=== PATIENT | male | born 1950 | race Two or more races ===

== ENCOUNTER 2018-02-23 11:00 | Inpatient (IN) | payer MEDICARE ==
[2018-02-23 11:33] VITALS: BP 138/89
[2018-02-23] MEDS ORDERED: Magnesium Hydroxide (MOM) 30 mL UDC PO PRN (12:09)
[2018-02-23] MEDS ORDERED: Maalox 30 mL Cup PO PRN (12:09)
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
[2018-02-23] MEDS ORDERED: Haloperidol Lactate 5 mg/mL 1mL Vial IM ONE (14:55)
[2018-02-23] MEDS ORDERED: Haloperidol Lactate 5 mg/mL 1mL Vial ONE (14:55)
[2018-02-24] MEDS: Multivitamin Tab PO SCH (08:36)
--- NOTE | 2018-02-24 13:09 | History & Physical ---
ADMIT DATE: 02/24/2018 PATIENT IDENTIFICATION: A 67-year-old male. CHIEF COMPLAINT: "Do you have your ID, I do mine." HISTORY OF PRESENT ILLNESS: A 67-year-old -[place], retired admitted by Dr. Sutton with legal status of 5150 after the patient was noted to have aggressive behavior towards his family. PAST MEDICAL HISTORY: Remarkable for: 1. Hypertension. 2. Hyperlipidemia. 3. Degenerative joint disease. 4. Posttraumatic stress disorder. MEDICATIONS AT HOME: Taking cholesterol medicine, which he does not remember; blood pressure medicine, does not remember. Depakote along with multivitamins. ALLERGIES: THE PATIENT IS NOT ALLERGIC TO MEDICATIONS. SOCIAL HISTORY: He is a retired , lives with family. He has a history of smoking cigarette, drinking alcohol use. Denies any street drug use. FAMILY MEDICAL HISTORY: Remarkable for hypertension. REVIEW OF SYSTEMS: The patient denies any chest pain, shortness of breath, palpitation, dizziness, nausea, vomiting, headache, seizure, syncopal episode, weight loss, weight gain, tingling, numbness involving upper and lower extremity, but admits to bilateral lower extremity swelling, more on the right than left due to excessive walking as per the patient account. PHYSICAL EXAMINATION: GENERAL: The patient is alert, awake, unpredictable behavior, sitting in the chair provided history by himself. VITAL SIGNS: Temperature 97.8, pulse is 82, respiratory rate is 20, blood pressure 111/74. HEENT: Normocephalic, atraumatic. Extraocular muscles are intact. Tongue was pink and coated. Poor dentition noted. No oral lesion, no bleeding. No sinus tenderness. NECK: Supple, no JVD, no hepatojugular reflex. No lymphadenopathy or carotid bruit. HEART: Both heart sounds are regular. No S3, no S4. CHEST: Lung equal in expansion, no expiratory wheezing. ABDOMEN: Protuberant, soft. No guarding, rigidity. Bowel sounds present. No palpable mass. EXTREMITIES: Remarkable for bilateral lower extremity edema, start from both feet all the way to both the knee, more on the left than right. Increased tenderness and increased warmth was noted. I was unable to see open wound on the bottom of the feet noted. Bilateral calves tenderness also noted. NEUROLOGIC: Alert, awake, follows commands. 2-12 cranial nerves are intact. Power in upper or lower extremities, 5+. Sensation to touch intact. ____ to touch are intact in both lower extremities, unable to broad-based gait noted. Otherwise, nonfocal. BACK: No kyphosis, scoliosis. No posterior tenderness. RECTAL: Not done as per patient's account. EXTERNAL GENITAL: Not done as per patient's request. AVAILABLE DIAGNOSTIC DATA: Performed in outside the facility has been reviewed, which is remarkable for leukopenia and normocytic normochromic anemia along with elevated BUN and creatinine. CLINICAL IMPRESSION: 1. Leukopenia, etiology needs to determination. The patient is a [place] , needs to rule out for chronic hepatitis B or C. 2. Normocytic normochromic anemia, suspect probably anemia of inflammation. 3. Elevated BUN and creatinine. No previous BUN and creatinine is available. The patient does have a history of hypertension, longstanding suspect patient has most likely chronic kidney disease stage 3. 4. Obesity. 5. Bilateral lower extremity cellulitis, needs to rule out for deep venous thrombosis. 6. Degenerative joint disease. 7. Obesity. 8. Psychotic disorder. PLAN: In the view of his medical problem, proceed with hepatitis panel to check to rule out hepatitis B and C, vitamin B12, Folate, TSH, CASSIE, ESR, RA will also be checked for evaluation of leukopenia. The patient will have serum iron, TIBC, retic count and ferritin level to be checked as well for assessment of anemia. The patient does have chronic kidney disease. I will not do anything at this time and will do the followup BMP. The patient can do outpatient workup for his chronic kidney disease. Psychotic evaluation and management has been deferred to psychiatrist. The patient will be placed empirically clindamycin along with probiotic for cellulitis, bilateral lower extremity venous Doppler studies will be done as well. The patient will be followed by us during the stay in the hospital. I sincerely thank you, Dr. Sutton for giving me the opportunity to participate in patient of yours. JOB# [id number]
[2018-02-24] MEDS: Lactobacillus Rhamnosus GG 15 Billion CFU CAP.SPRINK PO SCH (14:48)
[2018-02-24 18:06] LABS: CHOLESTEROL 146 mg/dL (<200); HDL -HIGH DENSITY LIPOPROTEIN 37 mg/dL (23-92); TRIGLYCERIDES 85 mg/dL (<150)
--- NOTE | 2018-02-24 19:48 | Progress Notes ---
DATE: Dr. Smart is covering for Dr. Sutton. The chart reviewed and the patient interviewed. Also discussed the patient's condition with the staff and reviewed records and labs. The patient remains in irritable mood. The patient also is impulsive and unpredictable. The patient is preoccupied with his right foot. Right foot has infection. He also is still upset for nobody cares and that nobody check them. At the same time, Dr. Herring informed and he will check the patient when he arrived to the hospital. The patient is demanding and talking about him being and is easily agitated and is still having severe mood swings. Otherwise, the patient started on Zyprexa 10 mg at bedtime and also continued to take Depakote 500 mg twice a day with no side effects. ASSESSMENT: The patient is still agitated and psychotic. TREATMENT PLAN: Continue to monitor his behavior and his condition closely. Also, work on the cellulitis on his right foot and Dr. Herring will evaluate the patient. Also, continue adjusting psychotropic medications and follow up. JOB# [id number]
--- NOTE | 2018-02-25 09:31 | Diagnostic Imaging Report ---
Bilateral lower extremity DVT study HISTORY: Pain COMPARISON: None Technique: Longitudinal and transverse sonographic images of the bilateral lower extremity veins were obtained with doppler analysis. FINDINGS: There is normal compressibility, augmentation and phasicity of the bilateral common femoral, superficial femoral, popliteal, and posterior tibial veins. No thrombus is visualized. Lower extremity subcutaneous edema is noted. IMPRESSION: No evidence of thrombus within the bilateral lower extremity veins. Lower extremity subcutaneous edema.
[2018-02-25] MEDS: Multivitamin Tab PO SCH (10:01)
[2018-02-25] MEDS: Lactobacillus Rhamnosus GG 15 Billion CFU CAP.SPRINK PO SCH (10:01)
[2018-02-25 14:12] LABS: HEP A AB IGM Negative (Negative); HEP B CORE IGM Negative (Negative); HEP B SURFACE AG QL Negative (Negative); HEP C ANTIBODY <0.1 s/co ratio (0.0-0.9)
--- NOTE | 2018-02-25 19:41 | Progress Notes ---
DATE: 02/25/2018 IDENTIFICATION: A 67-year-old male. SUBJECTIVE: The patient seen and examined. The patient lying in the bed. The patient has no new complaint. Bilateral lower extremity venous Doppler studies were done, which were negative for deep venous thrombosis. The patient's ESR is reported 72. Cholesterols are normal. Hepatitis panels are negative. TSH of 0.83. The patient has open wound on his leg. Currently, the patient is placed on p.o. antibiotic. MRSA came out positive as well. OBJECTIVE: On today's exam, VITAL SIGNS: Temperature 97.8, pulse is 83, respiratory rate is 18, blood pressure 136/76. HEENT: Poor dentition. NECK: Supple, no JVD. HEART: Regular. CHEST: Lung equal in expansion, no expiratory wheezing. ABDOMEN: Soft. No guarding or rigidity. EXTREMITIES: Bilateral lower extremity edema with increased warmth noted with open wound. CLINICAL IMPRESSION: 1. Bilateral lower extremity cellulitis. 2. Elevated ESR secondary to cellulitis. 3. Normocytic normochromic anemia, probably from anemia of inflammation. 4. Chronic kidney disease. 5. Obesity. 6. Degenerative joint disease. 7. Psychiatric disorder. 8. History of hypertension. PLAN: Await workup for anemia as well as chronic kidney disease. At this time, continue to provide p.o. antibiotic, psychiatric medication, and follow up as per psychiatrist. Fall precautions as ordered. Bactroban for MRSA colonization. Care plan reviewed and discussed. JOB# [id number]
[2018-02-26] MEDS: Lactobacillus Rhamnosus GG 15 Billion CFU CAP.SPRINK PO SCH (09:08)
[2018-02-26] MEDS: Multivitamin Tab PO SCH (09:08)
[2018-02-26] MEDS ORDERED: Haloperidol Lactate 5 mg/mL 1mL Vial IM ONE (17:36)
[2018-02-26] MEDS ORDERED: Haloperidol Lactate 5 mg/mL 1mL Vial ONE (17:46)
--- NOTE | 2018-02-26 22:18 | Progress Notes ---
DATE: MEDICAL PROGRESS NOTE PATIENT'S IDENTIFICATION: A 67-year-old male. SUBJECTIVE: The patient seen and examined. The patient is sitting, walking in the hallway. The patient denies any chest pain, shortness of breath, palpitation, dizziness, nausea, vomiting. The patient is currently on antibiotics for his cellulitis. OBJECTIVE: VITAL SIGNS: Temperature 98.2, pulse 86, respiratory rate is 20, blood pressure 113/80. HEENT: Poor dentition. NECK: Supple, no JVD. HEART: Regular. CHEST AND LUNG: Equal in expansion, no wheezing, no crackles. ABDOMEN: Soft. No guarding, no rigidity. Bowel sounds present. No palpable mass. EXTREMITIES: Remarkable bilateral lower extremity edema noted. CLINICAL IMPRESSION: 1. Bilateral lower extremity cellulitis. 2. Hypertension by history. 3. Hyperlipidemia. 4. Chronic kidney disease. 5. Obesity. 6. Psychotic disorder. 7. Degenerative joint disease. 8. Anemia of inflammation. PLAN: 1. Antibiotic. 2. Monitor blood pressure. 3. Monitor behavior. 4. General nursing care. 5. Follow lab. 6. I will continue to follow this patient during the stay in the hospital. JOB# [id number]
--- NOTE | 2018-02-27 01:03 | Progress Notes ---
DATE: 02/25/2018 SUBJECTIVE: Chart reviewed and the patient interviewed. Also discussed the patient's condition with the staff and reviewed records and labs. The patient is still angry and he is still agitated and in irritable mood. The patient also is demanding and asking staff to do certain things that needs to be done immediately. He also is still argumentative and he is hyperverbal and abusive to staff. The patient also is still complaining about his right foot, but at the same time started on antibiotics. Also during the interview, the patient is angry and easily agitated. ASSESSMENT: The patient is still psychotic and agitated. TREATMENT PLAN: The patient took Depakote only once, but he did take Zyprexa last night. We will continue monitoring his behavior and his condition closely and also we will continue to work on his compliance with medications. Also, continue to work on his anger and manic behavior and psychosis especially that his thinking is that he has millions of dollars and the people are after his money. JOB# [id number]
--- NOTE | 2018-02-27 02:06 | Progress Notes ---
DATE: 02/26/2018 SUBJECTIVE: Case was discussed with staff of the patient and reviewed records. The patient is continues to unpredictable, impulsive, overwhelmed, hyperverbal and very unpredictable. He continues to have poor insight, continues to need redirections. He is sleeping better and eating better. His olanzapine will be increased to 10 mg twice a day. He is compliant with the medication with no side effects, no sedation, no nausea, no extrapyramidal symptoms. He felt very intrusive and had to have emergency medication. LABORATORY DATA: His Depakote level is 52.8 which is within acceptable range. His serology was negative and ESR high at 72. Blood sugar is within normal range. TSH is within normal range. Lipid profile is within normal range. ASSESSMENT AND PLAN: We will continue the patient in group therapy, milieu therapy, and adjust medications as needed. JOB# [id number]
[2018-02-27 08:09] LABS: FERRITIN 302 ng/mL (30-400); IRON LC 33 ug/dL (38-169); TIBC (LC) 223 ug/dL (250-450); UIBC 190 ug/dL (111-343)
[2018-02-27] MEDS: Multivitamin Tab PO SCH (09:01)
[2018-02-27] MEDS: Lactobacillus Rhamnosus GG 15 Billion CFU CAP.SPRINK PO SCH (09:01)
--- NOTE | 2018-02-27 23:14 | Progress Notes ---
DATE: PATIENT'S IDENTIFICATION: A 67-year-old male. SUBJECTIVE: The patient is seen and examined. The patient is lying in the bed. The patient denies any chest pain, shortness of breath, palpitation, dizziness, nausea, vomiting, diarrhea. OBJECTIVE: On exam, VITAL SIGNS: See nurse's note. HEENT: No facial asymmetry. Tongue was pink and coated. NECK: Supple. No JVD. HEART: Regular. CHEST AND LUNG: Equal in expansion, no expiratory wheezing. ABDOMEN: Soft. No guarding, no rigidity. Bowel sounds are present. EXTREMITIES: Bilateral leg edema noted, which is decreased as compared to day of admission. No calf tenderness noted. CLINICAL IMPRESSION: 1. Bilateral lower extremity cellulitis, currently on p.o. medication. 2. Psychiatric disorder. 3. Obesity. 4. Anemia of chronic inflammation. 5. Degenerative joint disease. 6. Chronic kidney disease stage 3. PLAN: Continue p.o. antibiotic for now. Continue to monitor blood pressure and behavior, psychiatric medication and management deferred to psychiatrist. The patient fall precautions as well as symptoms management and medication management. Care plan reviewed and discussed. JOB# [id number]
--- NOTE | 2018-02-28 00:21 | Progress Notes ---
DATE: 02/27/2018 SUBJECTIVE: Case was discussed with the staff of the patient and reviewed records. The patient continues to be manicky and hyperverbal. He had a probable cause hearing today. It was upheld. The patient continues to be very agitated. Continues to need redirection. Continues to need emergency medication. He has been compliant with the medication with no side effects, no sedation, no nausea, no extrapyramidal symptoms. PLAN: I will be increasing his Zyprexa dose to 50 mg twice a day. His Depakote level is 53.8, which was within acceptable therapeutic range. He has high ESR ____, low iron, low total iron binding capacity. The patient's serology screen was negative. No side effects with the medication, no sedation, no nausea, no extrapyramidal symptoms. We will continue the patient in group therapy, milieu therapy, adjust medication as needed. JOB# [id number]
[2018-02-28] MEDS: Multivitamin Tab PO SCH (08:29)
[2018-02-28] MEDS: Lactobacillus Rhamnosus GG 15 Billion CFU CAP.SPRINK PO SCH (08:29)
--- NOTE | 2018-02-28 09:38 | Progress Notes ---
DATE: 02/28/2018 Case was discussed with staff of the patient, reviewed records. The patient continues to be irrational. Continues to be loud. Continues to be unpredictable and impulsive, needing redirection. Continues to have poor insight. They tried to make him wear socks and slippers; however, he refuses and his feet are swollen. I asked Casandra, the charge nurse to make sure he get something to wear and she said he keep refusing and taking it off; very poor insight, unpredictable and impulsive. I will be consulting with the medical doctor regarding abnormal lab work as his Staph aureus MRSA isolated and he has a high sed rate. There was a Doppler study of the lower extremities for DVT and showed no evidence ____ within the bilateral lower extremity vein and that was done because of edema; however, I will be talking to Casandra to make sure he gets treated for his MRSA isolated bacteria that was detected. He is already on clindamycin 300 mg every 8 hours and his Depakote level is ____ which is within acceptable therapeutic range. No side effects, no sedation, no nausea, no extrapyramidal symptoms and Zyprexa was increased to 50 mg b.i.d. and we will continue the patient in group therapy, milieu therapy, adjust the medication as needed. JOB# [id number]
[2018-02-28] MEDS ORDERED: Haloperidol Lactate 5 mg/mL 1mL Vial IM ONE (12:26)
[2018-02-28] MEDS ORDERED: Haloperidol Lactate 5 mg/mL 1mL Vial ONE (12:28)
[2018-03-01] MEDS: Lactobacillus Rhamnosus GG 15 Billion CFU CAP.SPRINK PO SCH (10:00)
[2018-03-01] MEDS: Multivitamin Tab PO SCH (10:00)
--- NOTE | 2018-03-01 21:43 | Progress Notes ---
DATE: 03/01/2018 Case was discussed with staff of the patient, reviewed records. The patient looks disheveled, disorganized, internally preoccupied. When I approached to talk to him, he said get away from me. He was very aggressive, irritable. He was very hard to redirect, unpredictable and impulsive. I did increase Zyprexa dose yesterday to 50 mg twice a day. I will give her more chance before adjusting the dose and so far no side effects with the medication, no sedation, no nausea, no extrapyramidal symptoms. We will continue to work with the patient in group therapy, milieu therapy, and adjust medication as needed. JOB# [id number]
[2018-03-02] MEDS: Lactobacillus Rhamnosus GG 15 Billion CFU CAP.SPRINK PO SCH (09:25)
[2018-03-02] MEDS: Multivitamin Tab PO SCH (09:25)
--- NOTE | 2018-03-02 23:56 | Progress Notes ---
DATE: 03/02/2018 SUBJECTIVE: Case was discussed with staff of the patient and reviewed records. The patient seems to be very irritable, manic. He continues to be aggressive. Continues to have poor insight. Continues to be unable to make safe plan for self-care. He is easily agitated. He was naked, when I went to talk to him, not responding well to redirection. He is unpredictable and impulsive. He has no known drug allergy. PLAN: I will be adding Haldol to his medication with the intention ____ acting. He did take the Haldol before and no side effects. We will continue the patient in group therapy, milieu therapy, and adjust medications as needed. JOB# [id number]
[2018-03-03] MEDS: Lactobacillus Rhamnosus GG 15 Billion CFU CAP.SPRINK PO SCH (08:26)
[2018-03-03] MEDS: Multivitamin Tab PO SCH (08:28)
--- NOTE | 2018-03-03 18:16 | Progress Notes ---
DATE: 03/03/2018 Case was discussed with staff of the patient and reviewed records. The patient continues to be unpredictable, impulsive, loud, needing redirection. Continues to have poor insight. Continues to be unable to make safe plan for self-care. Continues to be easily agitated, delusional and I added Haldol yesterday to his medication. Today, he is a little bit calmer; however, still not sure how it is hard to make judgment that this is working for him, because of his extreme agitation. No side effects with the medication, no sedation noted. No extrapyramidal symptoms. We will continue the patient in group therapy, milieu therapy and adjust medications as needed. JOB# [id number]
[2018-03-04] MEDS: Multivitamin Tab PO SCH (08:32)
[2018-03-04] MEDS: Lactobacillus Rhamnosus GG 15 Billion CFU CAP.SPRINK PO SCH (08:32)
--- NOTE | 2018-03-04 19:56 | Progress Notes ---
DATE: 03/04/2018 Case was discussed with staff of the patient, reviewed records. The patient is starting to show some progress since adding the Haldol. He is sleeping better, eating better. He is compliant with the medication with no side effects. However, he is still delusional. Apparently, the staff told me that they found a lot of marijuana on his clothes and he came with a bag of marijuana. Apparently, he was still using marijuana since he was admitted and they found out about this in the last 2 days. Now, he is less agitated, easier to redirect. He is compliant with the medication with no side effects, no sedation, no nausea, no extrapyramidal symptoms. We will continue outpatient group therapy, milieu therapy, and adjust medications as needed. JOB# [id number]
[2018-03-05] MEDS: Lactobacillus Rhamnosus GG 15 Billion CFU CAP.SPRINK PO SCH (09:07)
[2018-03-05] MEDS: Multivitamin Tab PO SCH (09:08)
[2018-03-05] MEDS: Potassium Chloride 10 mEq ER Tab PO SCH (09:19)
--- NOTE | 2018-03-05 21:07 | Progress Notes ---
DATE: 03/05/2018 MEDICAL PROGRESS NOTE PATIENT'S IDENTIFICATION: A 67-year-old male patient. SUBJECTIVE: The patient seen and examined. The patient is sitting in the chair, more cooperative and calm. The patient's legs have continues to remain swollen. He did finish the antibiotic with no improvement. The patient has normal liver function as well as renal function as well. OBJECTIVE: On today's exam, VITAL SIGNS: Temperature 97.6, pulse 82, respiratory rate 18, blood pressure 114/67. HEENT: Poor dentition. NECK: Supple, no JVD. HEART: Regular. CHEST AND LUNGS: Equal in expansion, no wheezing, no crackles. ABDOMEN: Soft. No guarding, no rigidity. Bowel sounds are present. No palpable mass. EXTREMITIES: +2 bilateral lower edema noted, more on the right than left. AVAILABLE DIAGNOSTIC DATA: ESR was reported 72, iron of 33, TIBC of 223. Ferritin level was 302. Thyroid functions are normal. Hepatitis panel was also reported normal as well. CLINICAL IMPRESSION: 1. Bilateral lower extremity edema. 2. Hyperlipidemia. 3. Psychiatric disorder. 4. Hypertension. 5. Degenerative joint disease. 6. Posttraumatic stress disorder. 7. Obesity. PLAN: The patient will be placed on Lasix and potassium for now. Follow up lab will be done as well. The patient does have elevated ESR, rechecked the ESR again. The patient's psychiatric evaluation and management deferred to psychiatrist. Fall precautions, discussed with staff. Continue other medication as prescribed. Care plan has been reviewed and discussed with staff as well. JOB# [id number]
--- NOTE | 2018-03-05 23:26 | Progress Notes ---
DATE: 03/05/2018 Case was discussed with staff of the patient, reviewed records. The patient continues to be irritable and aggressive. Continues to be intrusive. Continues to have poor insight. Continues to be unable to make safe plan for self-care, unpredictable, impulsive, hyperactive, grandiose. He is complaint with the medication with no side effects, no sedation, no nausea, no extrapyramidal symptoms. ____, which is in the excessive level of therapeutic range with low iron and low total iron binding capacity for which I consulted the medical doctor, on his case Dr. Herring. No side effects with the medication, no sedation, no nausea, no extrapyramidal symptoms. We will continue the patient in group therapy and milieu therapy, adjust the medication as needed. JOB# [id number]
[2018-03-06 06:13] LABS: % BASOPHILS 0.6 % (0.0-2.0); % EOSINOPHILS 4.1 % (0.0-5.0); % LYMPHOCYTES 31.4 % (20.0-50.0); % MONOCYTES 13.3 % (2.0-10.0); % NEUTROPHILS 50.6 % (40.0-80.0); EOSINOPHILE ABSOLUTE 0.2 Th/cmm (0.1-0.4); HEMATOCRIT 28.8 % (41.0-60); HEMOGLOBIN 9.8 gm/dL (12-16); LYMPHOCYTE ABSOLUTE 1.2 Th/cmm (1.5-3.0); MEAN CELL VOLUME 88.8 fl (80-99); MEAN CORPUSCULAR HEMOGLOBIN 30.4 pg (27.0-31.0); MEAN CORPUSCULAR HGB CONC 34.2 pg (28.0-36.0); MEAN PLATELET VOLUME 9.3 fl; MONOCYTE ABSOLUTE 0.5 Th/cmm (0.3-1.0); NEUTROPHILE ABSOLUTE 1.8 Th/cmm (1.8-8.0); PLATELET COUNT 279 Th/cmm (150-400); RED BLOOD COUNT 3.24 Mil/cmm (3.80-5.80)
[2018-03-06 06:36] LABS: WHITE BLOOD COUNT 3.7 Th/cmm (4.8-10.8)
[2018-03-06 06:41] LABS: BUN - UREA NITROGEN 12 mg/dL (7-25); CALCIUM SERUM 8.9 mg/dL (8.6-10.3); CARBON DIOXIDE 22.6 mEq/L (21.0-31.0); CHLORIDE 106 mEq/L (98-107); CREATININE - SERUM 0.9 mg/dL (0.7-1.3); GFR AFRICAN-AMERICAN > 60.0 ml/min (>90); GFR NON AFRICAN-AMERICAN > 60.0 ml/min; GLUCOSE 104 mg/dL (70-105); POTASSIUM SERUM 3.6 mEq/L (3.5-5.1); SODIUM SERUM 137 mEq/L (136-145)
[2018-03-06] MEDS: Lactobacillus Rhamnosus GG 15 Billion CFU CAP.SPRINK PO SCH (09:21)
[2018-03-06] MEDS: Potassium Chloride 10 mEq ER Tab PO SCH (09:21)
[2018-03-06] MEDS: Multivitamin Tab PO SCH (09:21)
--- NOTE | 2018-03-06 11:06 | Progress Notes ---
DATE: 03/05/2018 MEDICAL PROGRESS NOTE PATIENT'S IDENTIFICATION: A 67-year-old male. SUBJECTIVE: The patient was seen and examined. The patient was placed on diuretics. Repeat ESR is reported 128. The patient currently has a significant amount of inflammation, which may be contributing factor for his ESR. The patient has no new complaint. OBJECTIVE: VITAL SIGNS: See nurse's note. HEENT: Poor dentition. NECK: Supple, no JVD. HEART: Regular. CHEST AND LUNG: Equal in expansion, no wheezing, no crackles. ABDOMEN: Soft. EXTREMITIES: +2 edema noted. CLINICAL IMPRESSION: 1. Bilateral lower extremity edema. 2. Elevated ESR. 3. Hypertension. 4. Hyperlipidemia. 5. Degenerative joint disease. 6. High risk for fall. PLAN: In the view of elevated ESR and significant swelling and inflammation, we will clinically observe his ESR and if continues to remain elevated, we will do further workup . Otherwise, continue to provide diuretics along with monitor the blood pressure. Continue statin. Psych follow up and psych medication. We will continue to follow this patient during the stay in the hospital. JOB# [id number]
--- NOTE | 2018-03-06 23:56 | Progress Notes ---
DATE: 03/06/2018 SUBJECTIVE: Case was discussed with staff of the patient, reviewed records. The patient continues to be unpredictable, impulsive, loud, and easily agitated. He continues to have poor insight, unable to make safe plan for self-care. He is looking disheveled, disorganized, and internally preoccupied. He is compliant with the medication with no side effects, no sedation, no nausea, and no extrapyramidal symptoms. We will continue to work with the patient in group therapy, milieu therapy, and adjust the medications as needed. JOB# [id number]
[2018-03-07] MEDS: Potassium Chloride 10 mEq ER Tab PO SCH (08:16)
[2018-03-07] MEDS: Multivitamin Tab PO SCH (08:18)
[2018-03-07] MEDS: Lactobacillus Rhamnosus GG 15 Billion CFU CAP.SPRINK PO SCH (08:18)
--- NOTE | 2018-03-08 00:02 | Progress Notes ---
DATE: 03/07/2018 Case was discussed with staff of the patient, reviewed records. The patient reports he is not sleeping well. He continues to have poor insight about what happened. He is still unpredictable, impulsive, needing redirection. I will be discontinuing the Ambien and replace it with trazodone to help him with sleep. Discussed side effects including priapism. We will continue to work with the patient in group therapy, milieu therapy, adjust medication as needed. JOB# [id number]
[2018-03-08] MEDS: Lactobacillus Rhamnosus GG 15 Billion CFU CAP.SPRINK PO SCH (08:22)
[2018-03-08] MEDS: Potassium Chloride 10 mEq ER Tab PO SCH (08:22)
[2018-03-08] MEDS: Multivitamin Tab PO SCH (08:23)
[2018-03-08] MEDS: OLANZapine 15 MG, OLANZapine 2.5 MG PO SCH (16:51)
--- NOTE | 2018-03-08 20:27 | Progress Notes ---
DATE: 03/08/2018 SUBJECTIVE: Case was discussed with staff of the patient. The patient continues to be intrusive, somewhat hyperverbal, very hard to redirect. He believes that he needs to go that he has tried to show me that he has his clothes there. His backed up for him. He is walking barefoot, advised the staff to make sure he has something in the feet as his feet are swollen and I asked him to call the medical doctor to take care of it. The patient continues to be unpredictable and impulsive. Does not need any redirection. Continues to have poor insight. He was accepted at [facility]. He continues to be not ready to go to a lesser level of care because of his intrusive, agitated behavior with very poor insight. Unable to make safe plan for self-care and will continue to ____ the patient in group therapy, milieu therapy, and adjust medications as needed. JOB# [id number]
[2018-03-09 07:02] LABS: ANION GAP 8.1 (7.0-16.0); BUN - UREA NITROGEN 11 mg/dL (7-25); CARBON DIOXIDE 26.4 mEq/L (21.0-31.0); CHLORIDE 104 mEq/L (98-107); CREATININE - SERUM 0.9 mg/dL (0.7-1.3); GFR AFRICAN-AMERICAN > 60.0 ml/min (>90); GFR NON AFRICAN-AMERICAN > 60.0 ml/min; GLUCOSE 114 mg/dL (70-105); POTASSIUM SERUM 3.5 mEq/L (3.5-5.1); SODIUM SERUM 135 mEq/L (136-145)
--- NOTE | 2018-03-09 07:47 | Progress Notes ---
DATE: 03/08/2018 IDENTIFICATION: The patient is a 67-year-old male. SUBJECTIVE: The patient seen and examined. The patient is lying in the bed. He wants to go home though the legs are continuing to remain swollen. The patient is ambulatory. The patient denies any chest pain, shortness of breath or palpitation. PHYSICAL EXAMINATION: VITAL SIGNS: Temperature 97.3, pulse 89, respiratory rate is 18, blood pressure 112/57. HEENT: No facial asymmetry. NECK: Supple, no JVD. HEART: Regular. CHEST AND LUNGS: Equal in expansion, no expiratory wheezing. ABDOMEN: Soft. No guarding, no rigidity. Bowel sounds are present. No palpable mass. EXTREMITIES: +2 edema noted. NEUROLOGIC: Alert, awake, follows commands. CLINICAL IMPRESSION: 1. Bilateral lower extremity edema. 2. Hyperlipidemia. 3. Chronic obstructive pulmonary disease. 4. Degenerative joint disease. 5. Hypertension. 6. Psychotic disorder. PLAN: Increase Lasix to 40 mg a day along with metolazone and increased potassium. Have followup lab done tomorrow. Fall precautions with continuation of other medication as prescribed. I will continue to follow this patient during his stay in the hospital. JOB# [id number]
[2018-03-09] MEDS: Metolazone 5 MG TAB PO SCH (08:06)
[2018-03-09] MEDS: Lactobacillus Rhamnosus GG 15 Billion CFU CAP.SPRINK PO SCH (08:06)
[2018-03-09] MEDS: OLANZapine 15 MG, OLANZapine 2.5 MG PO SCH ×2 (08:07→16:51)
[2018-03-09] MEDS: Multivitamin Tab PO SCH (08:07)
[2018-03-09] MEDS: Potassium Chloride 20 mEq ER Tab PO SCH (08:07)
--- NOTE | 2018-03-09 09:34 | Internal Medicine Prog Note ---
Internal Medicine Subjective - Subjective Service Date: 03/09/18 Patient seen and examined:: with staff Patient is:: awake, verbal, interactive, in bed Patient Complaints of:: other (Complaining of bilateral lower extremity edema.) Per staff patient has:: no adverse event Internal Medicine Objective - Results Result Diagrams: 03/06/18 06:00 03/09/18 06:25 Recent Labs: Laboratory Last Values WBC 3.7 Th/cmm (4.8-10.8) L 03/06/18 06:00 RBC 3.24 Mil/cmm (3.80-5.80) L 03/06/18 06:00 Hgb 9.8 gm/dL (12-16) L 03/06/18 06:00 Hct 28.8 % (41.0-60) L 03/06/18 06:00 MCV 88.8 fl (80-99) 03/06/18 06:00 MCH 30.4 pg (27.0-31.0) 03/06/18 06:00 MCHC Differential 34.2 pg (28.0-36.0) 03/06/18 06:00 RDW 14.0 % (11.5-20.0) 03/06/18 06:00 Plt Count 279 Th/cmm (150-400) 03/06/18 06:00 MPV 9.3 fl 03/06/18 06:00 Neutrophils % 50.6 % (40.0-80.0) 03/06/18 06:00 Lymphocytes % 31.4 % (20.0-50.0) 03/06/18 06:00 Monocytes % 13.3 % (2.0-10.0) H 03/06/18 06:00 Eosinophils % 4.1 % (0.0-5.0) 03/06/18 06:00 Basophils % 0.6 % (0.0-2.0) 03/06/18 06:00 ESR 128 mm/hr (0-20) H 03/05/18 18:20 Sodium 135 mEq/L (136-145) L 03/09/18 06:25 Potassium 3.5 mEq/L (3.5-5.1) 03/09/18 06:25 Chloride 104 mEq/L (98-107) 03/09/18 06:25 Carbon Dioxide 26.4 mEq/L (21.0-31.0) 03/09/18 06:25 Anion Gap 8.1 (7.0-16.0) 03/09/18 06:25 BUN 11 mg/dL (7-25) 03/09/18 06:25 Creatinine 0.9 mg/dL (0.7-1.3) 03/09/18 06:25 Est GFR ( Amer) > 60.0 ml/min (>90) 03/09/18 06:25 Est GFR (Non-Af Amer) > 60.0 ml/min 03/09/18 06:25 BUN/Creatinine Ratio 12.2 03/09/18 06:25 Glucose 114 mg/dL (70-105) H 03/09/18 06:25 POC Glucose 87 MG/DL (70 - 105) 02/23/18 11:43 Calcium 9.0 mg/dL (8.6-10.3) 03/09/18 06:25 Iron 33 ug/dL (38-169) L 02/24/18 17:20 TIBC 223 ug/dL (250-450) L 02/24/18 17:20 Iron Saturation 15 % (15-55) 02/24/18 17:20 Unsaturated IBC 190 ug/dL (111-343) 02/24/18 17:20 Ferritin 302 ng/mL (30-400) 02/24/18 17:20 Triglycerides 85 mg/dL (<150) 02/24/18 17:20 Cholesterol 146 mg/dL (<200) 02/24/18 17:20 LDL Cholesterol Direct 92 mg/dL (75-193) 02/24/18 17:20 HDL Cholesterol 37 mg/dL (23-92) 02/24/18 17:20 TSH 0.83 uIU/ml (0.34-5.60) 02/24/18 17:20 Valproic Acid 53.8 ug/mL (50.0-100.0) 02/26/18 06:03 Hepatitis A IgM Ab Negative (Negative) 02/24/18 17:20 Hep Bs Antigen Negative (Negative) 02/24/18 17:20 Hep B Core IgM Ab Negative (Negative) 02/24/18 17:20 Hepatitis C Antibody <0.1 s/co ratio (0.0-0.9) 02/24/18 17:20 - Physical Exam Vitals and I&O: Vital Signs Temp 98.4 F 03/08/18 16:03 Pulse 91 03/08/18 16:03 Resp 20 03/08/18 16:03 BP 118/68 03/09/18 08:06 Pulse Ox 92 03/08/18 16:03 Intake & Output 03/08/18 03/09/18 03/09/18 18:59 06:59 18:59 Intake Total 1500 Balance 1500 Intake: Oral 1500 Other: # Voids 4 Active Medications: Current Medications Acetaminophen (Tylenol) 650 mg PO Q4HR PRN PRN Reason: Mild Pain / Temp above 100 Stop: 04/24/18 12:08 Last Admin: 03/07/18 15:57 Dose: 650 mg Al Hydrox/Mg Hydrox/Simethicone (Maalox) 30 ml PO Q4HR PRN PRN Reason: GI DISTRESS Stop: 04/24/18 12:08 Divalproex Sodium (Depakote Dr) 500 mg PO BID VÍCTOR; Protocol Stop: 04/24/18 16:59 Last Admin: 03/09/18 08:07 Dose: Not Given Furosemide (Lasix) 40 mg PO DAILY VÍCTOR Stop: 05/08/18 08:59 Last Admin: 03/09/18 08:05 Dose: 40 mg Haloperidol (Haldol) 5 mg PO BID VÍCTOR; Protocol Stop: 05/01/18 16:59 Last Admin: 03/09/18 08:07 Dose: 5 mg Lactobacillus Rhamnosus (Culturelle 15b) 1 each PO DAILY VÍCTOR Stop: 04/25/18 12:44 Last Admin: 03/09/18 08:06 Dose: 1 each Lorazepam (Ativan) 0.5 mg PO Q4HR PRN; Protocol PRN Reason: Anxiety Stop: 03/25/18 12:08 Last Admin: 03/09/18 06:21 Dose: 0.5 mg Magnesium Hydroxide (Milk Of Magnesia) 30 ml PO HS PRN PRN Reason: Constipation Metolazone (Zaroxolyn) 2.5 mg PO DAILY VÍCTOR Stop: 05/08/18 08:59 Last Admin: 03/09/18 08:06 Dose: 2.5 mg Multivitamins/Vitamin C (Theragran) 1 tab PO DAILY VÍCTOR Stop: 04/25/18 08:59 Last Admin: 03/09/18 08:07 Dose: 1 tab Olanzapine 15 mg/ Olanzapine 2 (.5 mg) 17.5 mg PO BID VÍCTOR Stop: 05/07/18 16:59 Last Admin: 03/09/18 08:07 Dose: 17.5 mg Potassium Chloride (Klor-Con) 20 meq PO DAILY VÍCTOR Stop: 05/08/18 08:59 Last Admin: 03/09/18 08:07 Dose: 20 meq Simvastatin (Zocor) 40 mg PO HS VÍCTOR; Protocol Stop: 04/25/18 20:59 Last Admin: 03/08/18 21:22 Dose: 40 mg Trazodone HCl (Desyrel) 50 mg PO HS VÍCTOR; Protocol Stop: 05/06/18 20:59 Last Admin: 03/08/18 21:22 Dose: 50 mg General: alert, obese, appears older HEENT: NC/AT, PERRLA, EOMI Neck: Supple, No JVD, No thyromegaly, No LAD Lungs: CTAB Cardiovascular: RRR, Normal S1, Normal S2 Abdomen: soft, non-tender, positive bowel sound Extremities: clear, edema Neurological: no change Internal Medicine Assmt/Plan - Assessment Assessment: Bilateral lower extremity edema. Hypertension. Hyperlipidemia. Obesity. DJD. Psychiatric disorder exacerbation. Posttraumatic stress disorder. - Plan Plan: Continue Lasix and Zaroxolyn as ordered. Potassium supplement. Follow lab. Antihypertensive medicine prescribed. Monitor blood pressure. Statin. General nursing care. Symptoms management. Medication management. Psychiatric evaluation and management deferred to psychiatrist. We will continue to follow this patient during the stay in the hospital. Nutritional Asmnt/Malnutr-PDOC - Dietary Evaluation Malnutrition Findings (Please click <Entered> for more info): Nutritional Asmnt/Malnutrition Start: 02/28/18 13: 31 Text: Status: Complete Freq: Protocol: Document 02/28/18 13:31 LCHENG (Rec: 02/28/18 13:38 [email or web address]) Nutritional Asmnt/Malnutrition Patient General Information Nutritional Screening Moderate Risk Diagnosis psychosis Pertinent Medical Hx/Surgical Hx HTN, hyperlipidemia, DJD, PTSD Subjective Information Pt seen standing in hallway by his room, talking, but not able to understand. Per EMR, PO intake 100% of meals. Current Diet Order/ Nutrition Support regular, fine chopped meats Pertinent Medications kristina wang Pertinent Labs 02/24 Iron 33 TIBC 223 Nutritional Hx/Data Height 1.8 m Height (Calculated Centimeters) 180.3 Current Weight (lbs) 77.111 kg Weight (Calculated Kilograms) 77.1 Weight (Calculated Grams) 00059.7 [place] Body Weight 172 Body Mass Index (BMI) 23.7 Weight Status Approriate GI Symptoms GI Symptoms None Last BM 02/27 Difficult in: None Skin Integrity/Comment: intact Current %PO Good (75-100%) Estimated Nutritional Goals BEE in Kcals: Using Current wt Calories/Kcals/Kg 25-30 Kcals Calculated 6742-0631 Protein: Using Current wt Protein g/k-1.2 Protein Calculated 77-92 Fluid: ml 1925-2310ml (1ml/kcal) Nutritional Problem No current Nutrition Prob Problem N/A Malnutrition Alert Is there a minimum of two criteria No selected? Query Text:Check all the applicable criteria. A minimum of two criteria are recommended for diagnosis of either severe or non-severe malnutrition. Malnutrition Related to Morbid Obesity Malnutrition related to morbid obesity No Intervention/Recommendation Comments 1. Continue with regular diet with fine chopped meat as ordered. 2. Monitor PO intake, wt, labs and skin integrity 3. F/U as low risk in 7 days, 03/07 Expected Outcomes/Goals Expected Outcomes/Goals 1. PO intake to meet at least 75% of nutritional needs. 2. Wt stability, skin to remain intact, labs to approach WNL.
--- NOTE | 2018-03-10 02:50 | Progress Notes ---
DATE: 03/09/2018 SUMMARY: Case was discussed with staff of the patient and reviewed records. The patient continues to be unpredictable, impulsive, and delusional. He keeps talking about the same issue over and over again. However, he slept better last night. He continues to look disheveled, disorganized, and internally preoccupied. He continues to have very poor insight about the reason that led to his admission with his inappropriate bizarre behavior. He had a lot of marijuana with him; apparently, the staff missed it to look on his clothes. The patient has no side effects to the medications, no sedation, no nausea, no extrapyramidal symptoms. He tolerated ____ to Haldol, to the Zyprexa with no side effects, no sedation, no nausea, no extrapyramidal symptoms. We will continue the patient in group therapy, milieu therapy, and adjust medications as needed. JOB# [id number]
[2018-03-10] MEDS: Metolazone 5 MG TAB PO SCH (08:19)
[2018-03-10] MEDS: Lactobacillus Rhamnosus GG 15 Billion CFU CAP.SPRINK PO SCH (08:19)
[2018-03-10] MEDS: OLANZapine 15 MG, OLANZapine 2.5 MG PO SCH ×2 (08:38→16:17)
[2018-03-10] MEDS: Multivitamin Tab PO SCH (08:38)
[2018-03-10] MEDS: Potassium Chloride 20 mEq ER Tab PO SCH (08:39)
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
[2018-03-11] MEDS: Lactobacillus Rhamnosus GG 15 Billion CFU CAP.SPRINK PO SCH (08:52)
[2018-03-11] MEDS: Metolazone 5 MG TAB PO SCH (08:53)
[2018-03-11] MEDS: Potassium Chloride 20 mEq ER Tab PO SCH (08:55)
[2018-03-11] MEDS: Multivitamin Tab PO SCH (08:55)
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
[2018-03-12] MEDS: Potassium Chloride 20 mEq ER Tab PO SCH (09:16)
[2018-03-12] MEDS: Multivitamin Tab PO SCH (09:16)
[2018-03-12] MEDS: Lactobacillus Rhamnosus GG 15 Billion CFU CAP.SPRINK PO SCH (09:16)
[2018-03-12] MEDS: Metolazone 5 MG TAB PO SCH (09:18)
[2018-03-12] MEDS ORDERED: Haloperidol Lactate 5 mg/mL 1mL Vial ONE (12:07)
[2018-03-12] MEDS ORDERED: Haloperidol Lactate 5 mg/mL 1mL Vial IM ONE (12:08)
--- NOTE | 2018-03-12 21:36 | Progress Notes ---
DATE: 03/12/2018 Case was discussed with staff of the patient, reviewed records. The patient continues to be delusional. Continues to be acting out. Continues to be unpredictable, impulsive, needing redirection. Continues to have poor insight. Unable to make safe plan for self-care. Dr. Israel over the weekend increase his olanzapine to 10 mg daily and 20 mg at bedtime with no side effects, no sedation or nausea, no extrapyramidal symptoms and he is still at risk for discharge because of psychotic, delusional, agitated behavior and we will continue to work with the patient in group therapy, milieu therapy, and adjust medication as needed. JOB# [id number]
[2018-03-13] MEDS: Lactobacillus Rhamnosus GG 15 Billion CFU CAP.SPRINK PO SCH (08:41)
[2018-03-13] MEDS: Potassium Chloride 20 mEq ER Tab PO SCH (08:42)
[2018-03-13] MEDS: Multivitamin Tab PO SCH (08:42)
[2018-03-13] MEDS: Metolazone 5 MG TAB PO SCH (08:42)
--- NOTE | 2018-03-13 22:12 | Progress Notes ---
DATE: 03/13/2018 Case was discussed with staff of the patient, reviewed records. The patient had a ____ hearing today and for 30 days. It was upheld. The patient continues to look disheveled, disorganized, unable to make safe plan for self-care, unpredictable, impulsive, and needing many emergency medications even yesterday. He continues to be unable to participate in meaningful conversation, preoccupied with [facility] and [facility]. I will ask the staff to see if he could be placed with the [facility]. No side effects with the medication, no sedation, no nausea, or no extrapyramidal symptoms. I will start the patient on Haldol Decanoate. We will continue the patient in group therapy, milieu therapy, and adjust medications as needed. JOB# [id number]
[2018-03-14] MEDS: Potassium Chloride 20 mEq ER Tab PO SCH (09:01)
[2018-03-14] MEDS: Lactobacillus Rhamnosus GG 15 Billion CFU CAP.SPRINK PO SCH (09:01)
[2018-03-14] MEDS: Multivitamin Tab PO SCH (09:02)
[2018-03-14] MEDS: Metolazone 5 MG TAB PO SCH (09:02)
--- NOTE | 2018-03-14 23:38 | Progress Notes ---
DATE: 03/14/2018 SUBJECTIVE: Case was discussed with staff of the patient, reviewed records. The staff reported that he has been deteriorating and decompensating. His memory is bad. He lost his speech this morning. His agitation; however, is not as bad. He is sleeping and eating well. I did gave him Haldol Decanoate yesterday. The patient apparently was using marijuana even after admission for a few days, told they found out ____ all over his clothes and apparently had a stash of it, so I am not sure his confusion is probably related to that. He is on a good dose of Zyprexa 10 mg in the morning, 20 mg at bedtime, Haldol 5 mg twice, he got Haldol Decanoate yesterday. He is unpredictable, impulsive, and confused. We will continue stabilization. We will continue to work with the patient in group therapy, milieu therapy, and adjust the medications as needed. JOB# [id number]
[2018-03-15] MEDS: Metolazone 5 MG TAB PO SCH (08:49)
[2018-03-15] MEDS: Multivitamin Tab PO SCH (08:50)
[2018-03-15] MEDS: Potassium Chloride 20 mEq ER Tab PO SCH (08:50)
[2018-03-15] MEDS: Lactobacillus Rhamnosus GG 15 Billion CFU CAP.SPRINK PO SCH (08:50)
--- NOTE | 2018-03-15 15:30 | Progress Notes ---
DATE: 03/15/2018 SUBJECTIVE: Case was discussed with staff of the patient, reviewed records. The patient is a little bit more clear today. He was able to tell me the day; however, continues to be internally preoccupied. Continues to have easily agitated, continues to have poor insight. Unable to make safe plan for self-care, unpredictable, impulsive, needing redirection. No side effects with the medication, no sedation, no nausea, no extrapyramidal symptoms. Her Depakote level 53.8, which is within acceptable range. Hepatitis panel is negative and his ESR is high at 72; it went up to 128, it was 72. I will leave this up to the discretion of the medical doctor. He is anemic with low iron, low at iron banding capacity. Chemistry panel with low protein, the rest within normal range. RPR nonreactive. TSH within normal range. We will continue the patient in group therapy, milieu therapy, and adjust medications as needed. JOB# [id number]
[2018-03-15] MEDS: Ferrous Sulfate 325 MG TAB PO SCH (17:05)
[2018-03-16 08:34] LABS: % BASOPHILS 0.5 % (0.0-2.0); % EOSINOPHILS 3.7 % (0.0-5.0); % LYMPHOCYTES 24.9 % (20.0-50.0); % MONOCYTES 9.2 % (2.0-10.0); % NEUTROPHILS 61.7 % (40.0-80.0); EOSINOPHILE ABSOLUTE 0.2 Th/cmm (0.1-0.4); HEMATOCRIT 27.7 % (41.0-60); HEMOGLOBIN 9.2 gm/dL (12-16); LYMPHOCYTE ABSOLUTE 1.2 Th/cmm (1.5-3.0); MEAN CELL VOLUME 89.9 fl (80-99); MEAN CORPUSCULAR HEMOGLOBIN 29.7 pg (27.0-31.0); MEAN PLATELET VOLUME 8.7 fl; MONOCYTE ABSOLUTE 0.4 Th/cmm (0.3-1.0); PLATELET COUNT 317 Th/cmm (150-400); RED BLOOD COUNT 3.08 Mil/cmm (3.80-5.80); RED CELL DISTRIBUTION WIDTH 13.8 % (11.5-20.0); WHITE BLOOD COUNT 4.8 Th/cmm (4.8-10.8)
[2018-03-16] MEDS: Ferrous Sulfate 325 MG TAB PO SCH ×2 (08:47→16:16)
[2018-03-16] MEDS: Metolazone 5 MG TAB PO SCH (08:48)
[2018-03-16] MEDS: Potassium Chloride 20 mEq ER Tab PO SCH (08:50)
[2018-03-16] MEDS: Multivitamin Tab PO SCH (08:51)
[2018-03-16] MEDS: Lactobacillus Rhamnosus GG 15 Billion CFU CAP.SPRINK PO SCH (08:52)
[2018-03-16 08:56] LABS: ALB/GLOB RATIO 0.8 (1.0-1.8); ALBUMIN 3.3 gm/dL (4.2-5.5); ALKALINE PHOSPHATASE 57 U/L (34-104); AMYLASE SERUM 42 U/L (29-103); ANION GAP 13.7 (7.0-16.0); BILIRUBIN,TOTAL 0.3 mg/dL (0.3-1.0); BUN - UREA NITROGEN 12 mg/dL (7-25); CALCIUM SERUM 8.9 mg/dL (8.6-10.3); CARBON DIOXIDE 27.1 mEq/L (21.0-31.0); CHLORIDE 97 mEq/L (98-107); CREATININE - SERUM 0.9 mg/dL (0.7-1.3); GFR AFRICAN-AMERICAN > 60.0 ml/min (>90); GFR NON AFRICAN-AMERICAN > 60.0 ml/min; GLUCOSE 172 mg/dL (70-105); POTASSIUM SERUM 3.8 mEq/L (3.5-5.1); SGOT 28 U/L (13-39); SGPT/ALT 20 U/L (7-52); SODIUM SERUM 134 mEq/L (136-145); TOTAL PROTEIN,SERUM 7.3 gm/dL (6.0-8.3); URIC ACID 9.5 mg/dL (4.4-7.6)
[2018-03-16 12:05] LABS: ESR SEDIMENTATION SED RATE 122 mm/hr (0-20)
[2018-03-16 12:30] LABS: ABSOLUTE RETICULOCYTE 30.8 Th/cmm; CORRECTED RETICULOCYTE COUNT 0.6 % (0.5-1.5); HEMATOCRIT 27.7 % (40.0-54.0); RBC RETICULOCYTE COUNT 3.08 Mil/cmm
[2018-03-16] MEDS: Lactulose 10 Gm/15 mL 30mL UDC PO SCH (16:14)
--- NOTE | 2018-03-16 22:10 | Progress Notes ---
DATE: 03/16/2018 Case was discussed with staff of the patient, reviewed records. The staff report, the patient is starting to show a little bit progress. He is less confused. He is sleeping better, eating better, easier to redirect. His agitation when he gets agitated, is not as bad or severe. He is able to engage in a meaningful conversation. No side effects with the medication, no sedation, no nausea, no extrapyramidal symptoms, and working on discharge plan. We will continue outpatient group therapy, milieu therapy and adjust the medication as needed. JOB# [id number]
[2018-03-17] MEDS: Lactobacillus Rhamnosus GG 15 Billion CFU CAP.SPRINK PO SCH (09:07)
[2018-03-17] MEDS: Metolazone 5 MG TAB PO SCH (09:07)
[2018-03-17] MEDS: Potassium Chloride 20 mEq ER Tab PO SCH (09:10)
[2018-03-17] MEDS: Lactulose 10 Gm/15 mL 30mL UDC PO SCH (09:11)
[2018-03-17] MEDS: Ferrous Sulfate 325 MG TAB PO SCH ×2 (09:11→16:16)
[2018-03-17] MEDS: Multivitamin Tab PO SCH (09:11)
--- NOTE | 2018-03-17 13:20 | Diagnostic Imaging Report ---
Ultrasound abdomen HISTORY: Elevated ammonia, anemia, edema COMPARISON: None Technique: Sonography of the abdomen was performed in multiple planes. FINDINGS: Exam is limited due to bowel gas and body habitus. The liver demonstrates increased echogenicity and measures 17.6 cm. The liver margins are not well-defined, however, no obvious focal lesions. Hepatopedal flow of the portal vein is noted. There is a 3 mm echogenic focus along the gallbladder wall. The gallbladder wall measures 2 mm. The Common bile measures 3 mm. Assessment of the pancreas is limited due to bowel gas. The right kidney measures 9.9 cm. The left kidney measures 10.1 cm. No evidence of focal lesions or hydronephrosis. The proximal abdominal aorta measures 1.9 cm. The Distal abdominal aorta measures 2 cm. IMPRESSION: Limited exam due to body habitus and bowel gas. 3 mm echogenic focus along the gallbladder wall which may represent a gallbladder wall polyp. A nonmobile stone is less likely. Consider short-term follow-up. Mild hepatomegaly with increased echogenicity which may be due to fatty infiltration.
--- NOTE | 2018-03-17 20:02 | Progress Notes ---
DATE: Dr. Smart is covering for Dr. Sutton. SUBJECTIVE: Chart reviewed and the patient interviewed. Also, discussed the patient condition with the staff and reviewed records and labs. The patient is severely irritable and agitated. The patient also is anxious. The patient also is argumentative. The patient also has labile affect. Otherwise, the patient denies any thoughts of suicide or homicide and he is compliant with taking his medications. ASSESSMENT: The patient is still agitated and needs close monitoring. TREATMENT PLAN: Continue monitoring his behavior and his condition closely and continue adjusting psychotropic medications and followup. [facility]# [id number]
[2018-03-18] MEDS: Lactulose 10 Gm/15 mL 30mL UDC PO SCH (08:42)
[2018-03-18] MEDS: Lactobacillus Rhamnosus GG 15 Billion CFU CAP.SPRINK PO SCH (08:46)
[2018-03-18] MEDS: Metolazone 5 MG TAB PO SCH (08:46)
[2018-03-18] MEDS: Multivitamin Tab PO SCH (08:49)
[2018-03-18] MEDS: Ferrous Sulfate 325 MG TAB PO SCH ×2 (08:49→16:05)
[2018-03-18] MEDS: Potassium Chloride 20 mEq ER Tab PO SCH (08:50)
--- NOTE | 2018-03-19 01:35 | Progress Notes ---
DATE: 03/18/2018 SUBJECTIVE: Chart reviewed and the patient interviewed. Also, discussed the patient's condition with the staff and reviewed records and labs. The patient is still in irritable mood and easily agitated. The patient also is still argumentative. The patient also have labile affect. On the other hand, the patient continued to comply with taking his medications with no side effects of medications. ASSESSMENT: The patient is still confused and agitated. TREATMENT PLAN: Continue monitoring his behavior and his condition closely. Also, continue adjusting psychotropic medications and followup. JOB# [id number]
[2018-03-19] MEDS: Lactobacillus Rhamnosus GG 15 Billion CFU CAP.SPRINK PO SCH (08:47)
[2018-03-19] MEDS: Ferrous Sulfate 325 MG TAB PO SCH ×2 (08:47→16:38)
[2018-03-19] MEDS: Lactulose 10 Gm/15 mL 30mL UDC PO SCH (08:47)
[2018-03-19] MEDS: Metolazone 5 MG TAB PO SCH (08:48)
[2018-03-19] MEDS: Potassium Chloride 20 mEq ER Tab PO SCH (08:48)
[2018-03-19] MEDS: Multivitamin Tab PO SCH (08:48)
--- NOTE | 2018-03-19 17:21 | Progress Notes ---
DATE: 03/19/2018 SUBJECTIVE: The patient seen and examined. The patient did have abdominal ultrasound on 03/17/2018, which did reveal the patient had gallbladder wall polyp with mild hepatomegaly. The patient continues to take medications Lasix along with metolazone and potassium supplement for lower extremity edema. The patient denies any chest pain, no shortness of breath. The patient is ambulatory. OBJECTIVE: VITAL SIGNS: Temperature 98.5, pulse 96, respiratory rate is 18, and blood pressure 106/60. HEENT: No facial asymmetry. NECK: Supple, no JVD. HEART: Regular. CHEST AND LUNGS: Equal in expansion, expiratory wheezing. ABDOMEN: Soft. EXTREMITIES: A +1 edema noted. Persistent elevated ESR with a hemoglobin of 9. AVAILABLE DIAGNOSTIC DATA: ESR 122, hemoglobin 9.2, uric acid of 9.5, alkaline phosphatase of 85. Albumin of 3.5, valproic acid reported 53.8. Hepatitis panel is negative. CLINICAL IMPRESSION: Elevated ESR needs to ruled out for polymyalgia rheumatica in the view of the patient's persistent being elevated and there are no signs or symptoms of rheumatic disease plus the patient has normocytic normochromic anemia. PLAN: The patient to start on prednisone 20 b.i.d. for now and also do the rheumatological work up. His uric acid is elevated. The patient has no signs and symptoms of acute gout. I will continue to monitor the patient's uric acid. I will put the patient on allopurinol as well as colchicine for now and we will continue to follow this patient during his stay in the hospital. [facility]# [id number]
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
== END 2018-03-19 18:45 | DRG 885 ==
LOC: GERO2 11:00 → GERO 13:07
PROVIDERS: ADMIT Psychiatry & Neurology Psychiatry; ATTEND Psychiatry & Neurology Psychiatry
DX: F31.9 Bipolar disorder, unspecified (principal); N18.3 Chronic kidney disease, stage 3 (moderate); F23 Brief psychotic disorder; L03.116 Cellulitis of left lower limb; L03.115 Cellulitis of right lower limb; E78.5 Hyperlipidemia, unspecified; M19.90 Unspecified osteoarthritis, unspecified site; F43.10 Post-traumatic stress disorder, unspecified; D64.9 Anemia, unspecified; E66.9 Obesity, unspecified; I12.9 Hypertensive chronic kidney disease with stage 1 through stage 4 chronic kidney disease, or unspecified chronic kidney disease; D63.8 Anemia in other chronic diseases classified elsewhere; Z68.23 Body mass index [BMI] 23.0-23.9, adult
CPT/HCPCS: 36415-UA; 76700-TC; 80048-TC; 80053-TC; 80061-TC; 80074-90; 80164-TC; 82140-TC; 82150-TC; 82728-90; 82948-90; 83540-90; 83550-90; 83735-TC; 83880-TC; 84443-TC; 84550-TC; 85025-TC; 85044-TC; 85652-TC; 93970-TC-50; G0410; J1200; J1630; J1631; J2060; J7051; Z7610

== ENCOUNTER 2018-03-29 20:13 | Inpatient (IN) | payer MEDICARE ==
--- NOTE | 2018-03-29 20:31 | ED Physician Chart ---
ED Chief Complaint/HPI - Patient Information Date Seen:: 03/29/18 Time Seen:: 20:20 Chief Complaint:: agitation History of Present Illness:: At his extended care facility patient has recently been verbally abusive and agitated, yelling, having auditory hallucinations Allergies:: Allergies Allergy/AdvReac Type Severity Reaction Status Date / Time No Known Allergies Allergy Verified 02/23/18 11:29 Vitals:: Vital Signs - 8 hr 03/29/18 20:17 Temp 98.1 F HR 84 RR 18 BP 104/54 O2 Sat % 98 Historian:: Patient, EMS Review:: Transfer documents Reviewed ED Review of Systems - Review of Systems General/Constitutional: No fever, No chills, No weight loss, No weakness, No diaphoresis, No edema, No loss of appetite Skin: No skin lesions, No rash, No bruising Head: No headache, No light-headedness Eyes: No loss of vision, No pain, No diplopia ENT: No earache, No nasal drainage, No sore throat, No tinnitus Neck: No neck pain, No swelling, No thyromegaly, No stiffness, No mass noted Cardio Vascular: No chest pain, No palpitations, No PND, No orthopnea, No edema Pulmonary: No SOB, No cough, No sputum, No wheezing GI: No nausea, No vomiting, No diarrhea, No pain, No melena, No hematochezia, No constipation, No hematemesis G/U: No dysuria, No frequency, No hematuria Musculoskeletal: No bone or joint pain, No back pain, No muscle pain Endocrine: No polyuria, No polydipsia Psychiatric: Prior psych history, Auditory hallucination Hematopoietic: No bruising, No lymphadenopathy Allergic/Immuno: No urticaria, No angioedema Neurological: No syncope, No focal symptoms, No weakness, No paresthesia, No headache, No seizure, No dizziness, No confusion, No vertigo ED Past Medical History - Past Medical History Past Medical History: HTN, Arthritis, Other (psychosis) Family History: Diabetes Melitus, Cancer Social History: Smoker, Alcohol Surgical History: other (knee) Psychiatricy History: Other (psychosis) Medication: Reviewed ED Physical Exam - Physical Examination General/Constitutional: Awake, Well-developed, well-nourished, Alert, No distress Other Gen/Cons comments:: Alert and oriented to the correct date Head: Atraumatic Eyes: Lids, conjuctiva normal, PERRL Skin: Nl inspection, No rash, No skin lesions, No ecchymosis ENMT: External ears, nose nl, TM canals nl, Nasal exam nl, Lips, teeth, gums nl Neck: No nuchal rigidity Respiratory: Nl effort/Exclusion, Clear to Auscultation Cardio Vascular: RRR, No murmur, gallop, rubs GI: No tenderness/rebounding/guarding, No organomegaly, No hernia : No CVA tenderness Extremities: No tenderness or effusion, Normal digits & nails Other Extremities comments:: 3 out of 4 pretibial pitting edema Neuro/Psych: No focal deficits ED Labs/Radiology/EKG Results - Lab Results Results: Laboratory Results - last 24 hr 03/29/18 03/29/18 20:36 20:36 WBC 5.5 RBC 3.28 L Hgb 9.8 L Hct 29.5 L MCV 90.0 MCH 30.0 MCHC Differential 33.3 RDW 15.1 Plt Count 267 MPV 8.9 Neutrophils % 84.2 H Lymphocytes % 10.4 L Monocytes % 5.1 Eosinophils % 0.3 Basophils % 0.0 Sodium 137 Potassium 4.1 Chloride 105 Carbon Dioxide 24.0 Anion Gap 12.1 BUN 26 H Creatinine 1.1 Est GFR ( Amer) > 60.0 Est GFR (Non-Af Amer) > 60.0 BUN/Creatinine Ratio 23.6 Glucose 138 H Calcium 8.5 L Total Bilirubin 0.4 AST 24 ALT 28 Alkaline Phosphatase 47 Total Protein 6.4 Albumin 3.3 L Globulin 3.1 Albumin/Globulin Ratio 1.1 Triglycerides 75 Cholesterol 130 LDL Cholesterol Direct 71 L HDL Cholesterol 41 Salicylates < 25.0 L Acetaminophen < 10.0 L Ethyl Alcohol < 10 - EKG Interpretations Rate & Rhythm: sinus arrhythmia with a rate of 73 [place]: normal axis Comments:: T wave flattening ED Septic Shock - . Is Septic Shock (SBP<90, OR Lactate>4 mmol\L) present?: No - <6hrs of presentation: Vital Signs: Vital Signs - 8 hr 03/29/18 20:17 Temp 98.1 F HR 84 RR 18 BP 104/54 O2 Sat % 98 ED Reassessment (Disposition) - Reassessment Reassessment Condition:: Unchanged - Diagnosis Diagnosis:: Psychosis with aggressive behavior; auditory hallucinations - Patient Disposition Admitted to:: [facility] Admitting Medical Physician:: Mariel Martinez Admitting Psych Physician:: Iglesia Smart Condition at Disposition:: Stable, Unchanged
[2018-03-29 20:45] LABS: % EOSINOPHILS 0.3 % (0.0-5.0); % LYMPHOCYTES 10.4 % (20.0-50.0); % MONOCYTES 5.1 % (2.0-10.0); % NEUTROPHILS 84.2 % (40.0-80.0); HEMATOCRIT 29.5 % (41.0-60); HEMOGLOBIN 9.8 gm/dL (12-16); LYMPHOCYTE ABSOLUTE 0.6 Th/cmm (1.5-3.0); MEAN CORPUSCULAR HGB CONC 33.3 pg (28.0-36.0); MEAN PLATELET VOLUME 8.9 fl; MONOCYTE ABSOLUTE 0.3 Th/cmm (0.3-1.0); NEUTROPHILE ABSOLUTE 4.6 Th/cmm (1.8-8.0); PLATELET COUNT 267 Th/cmm (150-400); RED BLOOD COUNT 3.28 Mil/cmm (3.80-5.80); RED CELL DISTRIBUTION WIDTH 15.1 % (11.5-20.0); WHITE BLOOD COUNT 5.5 Th/cmm (4.8-10.8)
[2018-03-29 21:00] LABS: ACETAMINOPHEN < 10.0 ug/mL (10.0-30.0); ALB/GLOB RATIO 1.1 (1.0-1.8); ALBUMIN 3.3 gm/dL (4.2-5.5); ALKALINE PHOSPHATASE 47 U/L (34-104); ANION GAP 12.1 (7.0-16.0); BILIRUBIN,TOTAL 0.4 mg/dL (0.3-1.0); BUN - UREA NITROGEN 26 mg/dL (7-25); CALCIUM SERUM 8.5 mg/dL (8.6-10.3); CHLORIDE 105 mEq/L (98-107); CHOLESTEROL 130 mg/dL (<200); CREATININE - SERUM 1.1 mg/dL (0.7-1.3); GFR AFRICAN-AMERICAN > 60.0 ml/min (>90); GFR NON AFRICAN-AMERICAN > 60.0 ml/min; GLUCOSE 138 mg/dL (70-105); HDL -HIGH DENSITY LIPOPROTEIN 41 mg/dL (23-92); POTASSIUM SERUM 4.1 mEq/L (3.5-5.1); SALICYLATES (ASPIRIN) < 25.0 mg/L (30.0-100.0); SGOT 24 U/L (13-39); SGPT/ALT 28 U/L (7-52); SODIUM SERUM 137 mEq/L (136-145); TOTAL PROTEIN,SERUM 6.4 gm/dL (6.0-8.3); TRIGLYCERIDES 75 mg/dL (<150)
[2018-03-29 22:05] LABS: URINE SOURCE CLEAN C
[2018-03-29 22:06] LABS: URINE BILIRUBIN NEGATIVE (NEGATIVE); URINE BLOOD NEGATIVE (NEGATIVE); URINE GLUCOSE (UA) NEGATIVE (NEGATIVE); URINE KETONE TRACE mg/dL (NEGATIVE); URINE LEUKOCYTE ESTERASE NEGATIVE (NEGATIVE); URINE NITRATE NEGATIVE (NEGATIVE); URINE PH 5.5 (4.6 - 8.0); URINE PROTEIN NEGATIVE (NEGATIVE); URINE UROBILINOGEN 0.2 E.U./dL (0.2 - 1.0)
[2018-03-29 22:15] LABS: URINE CLARITY CLEAR (CLEAR); URINE COLOR YELLOW; URINE MICROSCOPIC INDICATED? NO
[2018-03-29 22:21] LABS: AMPHETAMINE URINE NEGATIVE (NEGATIVE); BARBITURATES URINE NEGATIVE (NEGATIVE); BENZODIAZEPINES QUAL URINE NEGATIVE (NEGATIVE); CANNABINOID THC NEGATIVE (NEGATIVE); COCAINE METABOLITE QUAL URINE NEGATIVE (NEGATIVE); METHADONE URINE NEGATIVE (NEGATIVE); METHAMPHETAMINES QUAL URINE NEGATIVE (NEGATIVE); OPIATES (MORPHINE) QUAL. URINE NEGATIVE (NEGATIVE); PHENCYCLIDINE (PCP) URINE NEGATIVE (NEGATIVE); TRICYCLICS (TCA) QUAL. URINE NEGATIVE (NEGATIVE)
[2018-03-29] MEDS ORDERED: Magnesium Hydroxide (MOM) 30 mL UDC PO PRN (22:24)
--- NOTE | 2018-03-29 22:55 | History & Physical ---
ADMIT DATE: HISTORY OF PRESENT ILLNESS: The patient is a 67-year-old male with long history of hyperlipidemia, anemia, dementia, psychosis, admitted to [facility] under Dr. Smart's service. The patient denies any chest pain, shortness of breath, nausea, vomiting, fever, or chills. PAST MEDICAL HISTORY: Significant for gouty arthritis, hypertension, hyperlipidemia, psychosis. PAST SURGICAL HISTORY: No recent surgery. ALLERGIES: None. MEDICATIONS: Follow admission reconciliation. SOCIAL HISTORY: No smoking, no alcohol, no drug. FAMILY HISTORY: Noncontributory. REVIEW OF SYSTEMS: SYSTEM: No history of chronic immuno disorder. CARDIOVASCULAR SYSTEM: No coronary artery disease. ENDOCRINE SYSTEM: No diabetes or thyroid problem. GASTROINTESTINAL SYSTEM: No upper or lower GI bleed. NEUROLOGICAL SYSTEM: No seizure disorder. SKELETOMUSCULAR SYSTEM: Gouty arthritis. HEMATOLOGICAL: No bleeding tendency. RESPIRATORY SYSTEM: No asthma. GENITOURINARY: No dysuria or hematuria. PHYSICAL EXAMINATION: GENERAL: He is awake, alert, mildly confused. VITAL SIGNS: Temperature is 98.0, heart rate 88, blood pressure 112/61. HEENT: Normocephalic. Pupils reactive to light and accommodation. Sclerae clear. NECK: Supple. Negative for lymphadenopathy, JVD or bruit. CHEST: Entry of air bilaterally normal. No rhonchi or wheezing. HEART: S1, S2 normal. No murmur or gallop rhythm. ABDOMEN: Soft, bowel sounds positive. EXTREMITIES: No edema. NEUROLOGIC: He is awake, alert, no focal motor deficits. LABORATORY DATA: White blood cell 5.5, hemoglobin 9.8, hematocrit 29.5, platelets 267. Sodium 137, potassium 4.1, BUN 26, creatinine 0.1. ASSESSMENT: 1. Hyperlipidemia. 2. Gouty arthritis. 3. Anemia. 4. Psychosis. PLAN: The patient admitted to the [facility] Department under Dr. Smart's service. Medical problems addressed during hospitalization are psychosis. Medical problems addressed at discharge are anemia, hyperlipidemia, and gouty arthritis. The patient is medically stable for activity. Thank you, Dr. Smart, for asking me to see your patient. The patient is a full code. JOB# [id number]
[2018-03-30 00:03] VITALS: BP 118/74
[2018-03-30] MEDS: Lactulose 10 Gm/15 mL 30mL UDC PO SCH (09:32)
[2018-03-30] MEDS: Multivitamin Tab PO SCH (09:33)
[2018-03-30] MEDS: Potassium Chloride 20 mEq ER Tab PO SCH (09:33)
[2018-03-30] MEDS: Ferrous Sulfate 325 MG TAB PO SCH ×2 (09:33→17:39)
[2018-03-30] MEDS ORDERED: Haloperidol Lactate 5 mg/mL 1mL Vial ONE (12:43)
[2018-03-30] MEDS ORDERED: Haloperidol Lactate 5 mg/mL 1mL Vial IM ONE (12:45)
[2018-03-30 21:04] LABS: A1C % 6.8 % (4.0-6.0)
--- NOTE | 2018-03-30 22:42 | Internal Medicine Prog Note ---
Internal Medicine Subjective - Subjective Service Date: 03/30/18 Patient seen and examined:: with staff Patient is:: awake, verbal, in bed Per staff patient has:: no adverse event Internal Medicine Objective - Results Result Diagrams: 03/29/18 20:36 03/29/18 20:36 Recent Labs: Laboratory Last Values WBC 5.5 Th/cmm (4.8-10.8) 03/29/18 20:36 RBC 3.28 Mil/cmm (3.80-5.80) L 03/29/18 20:36 Hgb 9.8 gm/dL (12-16) L 03/29/18 20:36 Hct 29.5 % (41.0-60) L 03/29/18 20:36 MCV 90.0 fl (80-99) 03/29/18 20:36 MCH 30.0 pg (27.0-31.0) 03/29/18 20:36 MCHC Differential 33.3 pg (28.0-36.0) 03/29/18 20:36 RDW 15.1 % (11.5-20.0) 03/29/18 20:36 Plt Count 267 Th/cmm (150-400) 03/29/18 20:36 MPV 8.9 fl 03/29/18 20:36 Neutrophils % 84.2 % (40.0-80.0) H 03/29/18 20:36 Lymphocytes % 10.4 % (20.0-50.0) L 03/29/18 20:36 Monocytes % 5.1 % (2.0-10.0) 03/29/18 20:36 Eosinophils % 0.3 % (0.0-5.0) 03/29/18 20:36 Basophils % 0.0 % (0.0-2.0) 03/29/18 20:36 Sodium 137 mEq/L (136-145) 03/29/18 20:36 Potassium 4.1 mEq/L (3.5-5.1) 03/29/18 20:36 Chloride 105 mEq/L (98-107) 03/29/18 20:36 Carbon Dioxide 24.0 mEq/L (21.0-31.0) 03/29/18 20:36 Anion Gap 12.1 (7.0-16.0) 03/29/18 20:36 BUN 26 mg/dL (7-25) H 03/29/18 20:36 Creatinine 1.1 mg/dL (0.7-1.3) 03/29/18 20:36 Est GFR ( Amer) > 60.0 ml/min (>90) 03/29/18 20:36 Est GFR (Non-Af Amer) > 60.0 ml/min 03/29/18 20:36 BUN/Creatinine Ratio 23.6 03/29/18 20:36 Glucose 138 mg/dL (70-105) H 03/29/18 20:36 Hemoglobin A1c % 6.8 % (4.0-6.0) H 03/29/18 20:36 Calcium 8.5 mg/dL (8.6-10.3) L 03/29/18 20:36 Total Bilirubin 0.4 mg/dL (0.3-1.0) 03/29/18 20:36 AST 24 U/L (13-39) 03/29/18 20:36 ALT 28 U/L (7-52) 03/29/18 20:36 Alkaline Phosphatase 47 U/L (34-104) 03/29/18 20:36 Total Protein 6.4 gm/dL (6.0-8.3) 03/29/18 20:36 Albumin 3.3 gm/dL (4.2-5.5) L 03/29/18 20:36 Globulin 3.1 gm/dL 03/29/18 20:36 Albumin/Globulin Ratio 1.1 (1.0-1.8) 03/29/18 20:36 Triglycerides 75 mg/dL (<150) 03/29/18 20:36 Cholesterol 130 mg/dL (<200) 03/29/18 20:36 LDL Cholesterol Direct 71 mg/dL (75-193) L 03/29/18 20:36 HDL Cholesterol 41 mg/dL (23-92) 03/29/18 20:36 TSH 0.40 uIU/ml (0.34-5.60) 03/29/18 20:36 Urine Source CLEAN C 03/29/18 21:10 Urine Color YELLOW 03/29/18 21:10 Urine Clarity CLEAR (CLEAR) 03/29/18 21:10 Urine pH 5.5 (4.6 - 8.0) 03/29/18 21:10 Ur Specific [place] >= 1.030 (1.005-1.030) 03/29/18 21:10 Urine Protein NEGATIVE mg/dL (NEGATIVE) 03/29/18 21:10 Urine Glucose (UA) NEGATIVE mg/dL (NEGATIVE) 03/29/18 21:10 Urine Ketones TRACE mg/dL (NEGATIVE) 03/29/18 21:10 Urine Blood NEGATIVE (NEGATIVE) 03/29/18 21:10 Urine Nitrate NEGATIVE (NEGATIVE) 03/29/18 21:10 Urine Bilirubin NEGATIVE (NEGATIVE) 03/29/18 21:10 Urine Urobilinogen 0.2 E.U./dL (0.2 - 1.0) 03/29/18 21:10 Ur Leukocyte Esterase NEGATIVE (NEGATIVE) 03/29/18 21:10 Salicylates < 25.0 mg/L (30.0-100.0) L 03/29/18 20:36 Urine Opiates Screen NEGATIVE (NEGATIVE) 03/29/18 21:10 Urine Methadone Screen NEGATIVE (NEGATIVE) 03/29/18 21:10 Acetaminophen < 10.0 ug/mL (10.0-30.0) L 03/29/18 20:36 Ur Barbiturates Screen NEGATIVE (NEGATIVE) 03/29/18 21:10 Ur Tricyclics Screen NEGATIVE (NEGATIVE) 03/29/18 21:10 Ur Phencyclidine Scrn NEGATIVE (NEGATIVE) 03/29/18 21:10 Amphetamines Screen NEGATIVE (NEGATIVE) 03/29/18 21:10 U Methamphetamines Scrn NEGATIVE (NEGATIVE) 03/29/18 21:10 U Benzodiazepines Scrn NEGATIVE (NEGATIVE) 03/29/18 21:10 U Cocaine Metab Screen NEGATIVE (NEGATIVE) 03/29/18 21:10 U Cannabinoids Screen NEGATIVE (NEGATIVE) 03/29/18 21:10 Ethyl Alcohol < 10 mg/dL (0-10) 03/29/18 20:36 RPR NONREACTIVE (NONREACTIVE) 03/29/18 20:36 - Physical Exam Vitals and I&O: Vital Signs Temp 98.4 F 03/30/18 14:00 Pulse 80 03/30/18 14:00 Resp 19 03/30/18 14:00 BP 112/76 03/30/18 14:00 Pulse Ox 98 03/30/18 14:00 Intake & Output 03/30/18 03/30/18 03/31/18 06:59 18:59 06:59 Intake Total 1200 Balance 1200 Weight (lbs) 77.111 kg Intake: Oral 1200 Other: # Bowel Movements 1 Weight Source Patient stated Active Medications: Current Medications Acetaminophen (Tylenol) 650 mg PO Q4HR PRN PRN Reason: Mild Pain / Temp above 100 Stop: 05/28/18 22:23 Allopurinol (Zyloprim) 100 mg PO DAILY [facility] Stop: 05/29/18 08:59 Last Admin: 03/30/18 09:33 Dose: 100 mg Colchicine (Colcrys) 0.6 mg PO DAILY [facility] Stop: 05/29/18 16:59 Last Admin: 03/30/18 17:44 Dose: Not Given Divalproex Sodium (Depakote Dr) 500 mg PO BID [facility]; Protocol Stop: 05/29/18 08:59 Last Admin: 03/30/18 17:39 Dose: 500 mg Docusate Sodium (Colace) 250 mg PO DAILY [facility] Stop: 05/29/18 08:59 Last Admin: 03/30/18 09:33 Dose: 250 mg Ferrous Sulfate (Iron) 325 mg PO BID [facility] Stop: 05/29/18 08:59 Last Admin: 03/30/18 17:39 Dose: 325 mg Furosemide (Lasix) 40 mg PO DAILY [facility] Stop: 05/29/18 08:59 Last Admin: 03/30/18 09:33 Dose: 40 mg Lactulose (Cephulac) 10 gm PO DAILY [facility] Stop: 05/29/18 08:59 Last Admin: 03/30/18 09:32 Dose: 10 gm Lorazepam (Ativan) 0.5 mg PO Q4HR PRN; Protocol PRN Reason: Agitation Stop: 04/28/18 23:44 Magnesium Hydroxide (Milk Of Magnesia) 30 ml PO HS PRN PRN Reason: Constipation Stop: 05/28/18 22:23 Multivitamins/Vitamin C (Theragran) 1 tab PO DAILY [facility] Stop: 05/29/18 08:59 Last Admin: 03/30/18 09:33 Dose: 1 tab Olanzapine (Zyprexa) 10 mg PO DAILY [facility]; Protocol Stop: 05/29/18 15:59 Last Admin: 03/30/18 16:30 Dose: Not Given Olanzapine (Zyprexa) 20 mg PO HS [facility]; Protocol Stop: 05/29/18 20:59 Last Admin: 03/30/18 21:22 Dose: 20 mg Potassium Chloride (Klor-Con) 20 meq PO DAILY [facility] Stop: 05/29/18 08:59 Last Admin: 03/30/18 09:33 Dose: 20 meq Prednisone (Deltasone) 20 mg PO BID [facility] Stop: 05/29/18 08:59 Last Admin: 03/30/18 17:39 Dose: 20 mg Simvastatin (Zocor) 40 mg PO HS [facility]; Protocol Stop: 05/29/18 20:59 Last Admin: 03/30/18 21:22 Dose: 40 mg Zolpidem Tartrate (Ambien) 5 mg PO HS PRN PRN Reason: Insomnia Stop: 05/28/18 23:44 General: alert HEENT: NC/AT, PERRLA, anicteric sclerae, throat clear Neck: No thyromegaly, +2 carotid pulse wo bruit, No LAD Lungs: CTAB Cardiovascular: RRR, Normal S1, Normal S2, without murmur Abdomen: soft, non-tender, non-distended Extremities: clear Neurological: no change Internal Medicine Assmt/Plan - Assessment Assessment: 1.HYPERLIPIDEMIA. 2.GOUTY ARTHRITIS. 3.ANEMIA. 4.PSYCHOSIS. - Plan Plan: CONTINUE ON CURRENT MEDICATION AND DIET.
[2018-03-31] MEDS: Potassium Chloride 20 mEq ER Tab PO SCH (08:48)
[2018-03-31] MEDS: Ferrous Sulfate 325 MG TAB PO SCH ×2 (08:49→16:23)
[2018-03-31] MEDS: Multivitamin Tab PO SCH (08:49)
[2018-03-31] MEDS: Lactulose 10 Gm/15 mL 30mL UDC PO SCH (08:50)
--- NOTE | 2018-03-31 19:29 | Internal Medicine Prog Note ---
Internal Medicine Subjective - Subjective Service Date: 03/31/18 Patient seen and examined:: with staff Patient is:: awake, verbal, ambulating, talking Per staff patient has:: no adverse event Internal Medicine Objective - Results Result Diagrams: 03/29/18 20:36 03/29/18 20:36 Recent Labs: Laboratory Last Values WBC 5.5 Th/cmm (4.8-10.8) 03/29/18 20:36 RBC 3.28 Mil/cmm (3.80-5.80) L 03/29/18 20:36 Hgb 9.8 gm/dL (12-16) L 03/29/18 20:36 Hct 29.5 % (41.0-60) L 03/29/18 20:36 MCV 90.0 fl (80-99) 03/29/18 20:36 MCH 30.0 pg (27.0-31.0) 03/29/18 20:36 MCHC Differential 33.3 pg (28.0-36.0) 03/29/18 20:36 RDW 15.1 % (11.5-20.0) 03/29/18 20:36 Plt Count 267 Th/cmm (150-400) 03/29/18 20:36 MPV 8.9 fl 03/29/18 20:36 Neutrophils % 84.2 % (40.0-80.0) H 03/29/18 20:36 Lymphocytes % 10.4 % (20.0-50.0) L 03/29/18 20:36 Monocytes % 5.1 % (2.0-10.0) 03/29/18 20:36 Eosinophils % 0.3 % (0.0-5.0) 03/29/18 20:36 Basophils % 0.0 % (0.0-2.0) 03/29/18 20:36 Sodium 137 mEq/L (136-145) 03/29/18 20:36 Potassium 4.1 mEq/L (3.5-5.1) 03/29/18 20:36 Chloride 105 mEq/L (98-107) 03/29/18 20:36 Carbon Dioxide 24.0 mEq/L (21.0-31.0) 03/29/18 20:36 Anion Gap 12.1 (7.0-16.0) 03/29/18 20:36 BUN 26 mg/dL (7-25) H 03/29/18 20:36 Creatinine 1.1 mg/dL (0.7-1.3) 03/29/18 20:36 Est GFR ( Amer) > 60.0 ml/min (>90) 03/29/18 20:36 Est GFR (Non-Af Amer) > 60.0 ml/min 03/29/18 20:36 BUN/Creatinine Ratio 23.6 03/29/18 20:36 Glucose 138 mg/dL (70-105) H 03/29/18 20:36 Hemoglobin A1c % 6.8 % (4.0-6.0) H 03/29/18 20:36 Calcium 8.5 mg/dL (8.6-10.3) L 03/29/18 20:36 Total Bilirubin 0.4 mg/dL (0.3-1.0) 03/29/18 20:36 AST 24 U/L (13-39) 03/29/18 20:36 ALT 28 U/L (7-52) 03/29/18 20:36 Alkaline Phosphatase 47 U/L (34-104) 03/29/18 20:36 Total Protein 6.4 gm/dL (6.0-8.3) 03/29/18 20:36 Albumin 3.3 gm/dL (4.2-5.5) L 03/29/18 20:36 Globulin 3.1 gm/dL 03/29/18 20:36 Albumin/Globulin Ratio 1.1 (1.0-1.8) 03/29/18 20:36 Triglycerides 75 mg/dL (<150) 03/29/18 20:36 Cholesterol 130 mg/dL (<200) 03/29/18 20:36 LDL Cholesterol Direct 71 mg/dL (75-193) L 03/29/18 20:36 HDL Cholesterol 41 mg/dL (23-92) 03/29/18 20:36 TSH 0.40 uIU/ml (0.34-5.60) 03/29/18 20:36 Urine Source CLEAN C 03/29/18 21:10 Urine Color YELLOW 03/29/18 21:10 Urine Clarity CLEAR (CLEAR) 03/29/18 21:10 Urine pH 5.5 (4.6 - 8.0) 03/29/18 21:10 Ur Specific [place] >= 1.030 (1.005-1.030) 03/29/18 21:10 Urine Protein NEGATIVE mg/dL (NEGATIVE) 03/29/18 21:10 Urine Glucose (UA) NEGATIVE mg/dL (NEGATIVE) 03/29/18 21:10 Urine Ketones TRACE mg/dL (NEGATIVE) 03/29/18 21:10 Urine Blood NEGATIVE (NEGATIVE) 03/29/18 21:10 Urine Nitrate NEGATIVE (NEGATIVE) 03/29/18 21:10 Urine Bilirubin NEGATIVE (NEGATIVE) 03/29/18 21:10 Urine Urobilinogen 0.2 E.U./dL (0.2 - 1.0) 03/29/18 21:10 Ur Leukocyte Esterase NEGATIVE (NEGATIVE) 03/29/18 21:10 Salicylates < 25.0 mg/L (30.0-100.0) L 03/29/18 20:36 Urine Opiates Screen NEGATIVE (NEGATIVE) 03/29/18 21:10 Urine Methadone Screen NEGATIVE (NEGATIVE) 03/29/18 21:10 Acetaminophen < 10.0 ug/mL (10.0-30.0) L 03/29/18 20:36 Ur Barbiturates Screen NEGATIVE (NEGATIVE) 03/29/18 21:10 Ur Tricyclics Screen NEGATIVE (NEGATIVE) 03/29/18 21:10 Ur Phencyclidine Scrn NEGATIVE (NEGATIVE) 03/29/18 21:10 Amphetamines Screen NEGATIVE (NEGATIVE) 03/29/18 21:10 U Methamphetamines Scrn NEGATIVE (NEGATIVE) 03/29/18 21:10 U Benzodiazepines Scrn NEGATIVE (NEGATIVE) 03/29/18 21:10 U Cocaine Metab Screen NEGATIVE (NEGATIVE) 03/29/18 21:10 U Cannabinoids Screen NEGATIVE (NEGATIVE) 03/29/18 21:10 Ethyl Alcohol < 10 mg/dL (0-10) 03/29/18 20:36 RPR NONREACTIVE (NONREACTIVE) 03/29/18 20:36 - Physical Exam Vitals and I&O: Vital Signs Temp 98.0 F 03/31/18 14:00 Pulse 90 03/31/18 14:00 Resp 20 03/31/18 14:00 BP 150/78 03/31/18 14:00 Pulse Ox 98 03/31/18 14:00 Intake & Output 03/31/18 03/31/18 04/01/18 06:59 18:59 06:59 Intake Total 1000 Balance 1000 Intake: Oral 1000 Other: # Voids 4 # Bowel Movements 1 Active Medications: Current Medications Acetaminophen (Tylenol) 650 mg PO Q4HR PRN PRN Reason: Mild Pain / Temp above 100 Stop: 05/28/18 22:23 Allopurinol (Zyloprim) 100 mg PO DAILY [facility] Stop: 05/29/18 08:59 Last Admin: 03/31/18 08:49 Dose: 100 mg Colchicine (Colcrys) 0.6 mg PO DAILY [facility] Stop: 05/29/18 16:59 Last Admin: 03/31/18 08:50 Dose: Not Given Divalproex Sodium (Depakote Dr) 500 mg PO BID [facility]; Protocol Stop: 05/29/18 08:59 Last Admin: 03/31/18 16:23 Dose: 500 mg Docusate Sodium (Colace) 250 mg PO DAILY [facility] Stop: 05/29/18 08:59 Last Admin: 03/31/18 08:50 Dose: 250 mg Ferrous Sulfate (Iron) 325 mg PO BID [facility] Stop: 05/29/18 08:59 Last Admin: 03/31/18 16:23 Dose: 325 mg Furosemide (Lasix) 40 mg PO DAILY [facility] Stop: 05/29/18 08:59 Last Admin: 03/31/18 08:48 Dose: 40 mg Lactulose (Cephulac) 10 gm PO DAILY [facility] Stop: 05/29/18 08:59 Last Admin: 03/31/18 08:50 Dose: 10 gm Lorazepam (Ativan) 0.5 mg PO Q4HR PRN; Protocol PRN Reason: Agitation Stop: 04/28/18 23:44 Magnesium Hydroxide (Milk Of Magnesia) 30 ml PO HS PRN PRN Reason: Constipation Stop: 05/28/18 22:23 Multivitamins/Vitamin C (Theragran) 1 tab PO DAILY [facility] Stop: 05/29/18 08:59 Last Admin: 03/31/18 08:49 Dose: 1 tab Olanzapine (Zyprexa) 10 mg PO DAILY [facility]; Protocol Stop: 05/29/18 15:59 Last Admin: 03/31/18 08:49 Dose: 10 mg Olanzapine (Zyprexa) 20 mg PO HS [facility]; Protocol Stop: 05/29/18 20:59 Last Admin: 03/30/18 21:22 Dose: 20 mg Potassium Chloride (Klor-Con) 20 meq PO DAILY [facility] Stop: 05/29/18 08:59 Last Admin: 03/31/18 08:48 Dose: 20 meq Prednisone (Deltasone) 20 mg PO BID [facility] Stop: 05/29/18 08:59 Last Admin: 03/31/18 16:23 Dose: 20 mg Simvastatin (Zocor) 40 mg PO HS [facility]; Protocol Stop: 05/29/18 20:59 Last Admin: 03/30/18 21:22 Dose: 40 mg Zolpidem Tartrate (Ambien) 5 mg PO HS PRN PRN Reason: Insomnia Stop: 05/28/18 23:44 General: alert, demented HEENT: NC/AT, PERRLA, anicteric sclerae, throat clear Neck: No thyromegaly, +2 carotid pulse wo bruit, No LAD Lungs: CTAB Cardiovascular: RRR, Normal S1, Normal S2, without murmur Abdomen: soft, non-tender, non-distended Extremities: clear Neurological: no change Internal Medicine Assmt/Plan - Assessment Assessment: 1.HYPERLIPIDEMIA. 2.GOUTY ARTHRITIS. 3.ANEMIA. 4.PSYCHOSIS. - Plan Plan: CONTINUE ON CURRENT MEDICATION AND DIET.
--- NOTE | 2018-03-31 23:22 | Progress Notes ---
DATE: 03/31/2018 Case was discussed with staff of the patient, reviewed records. The patient continues to be very intrusive, very hard to redirect, easily agitated. He kept following me from one place to the other. Unable to make safe plan for self-care or participate in a meaningful conversation, paranoid, suspicious, questioning. He is compliant with the medication with no side effects, no sedation, no nausea and no extrapyramidal symptoms. There is previous admission. Dr. Smart have him on Zyprexa 30 mg daily and we will continue outpatient group therapy, milieu therapy, and adjust medications as needed. JOB# [id number]
[2018-04-01] MEDS: Lactulose 10 Gm/15 mL 30mL UDC PO SCH (09:12)
[2018-04-01] MEDS: Ferrous Sulfate 325 MG TAB PO SCH ×2 (09:13→17:07)
[2018-04-01] MEDS: Multivitamin Tab PO SCH (09:13)
[2018-04-01] MEDS: Potassium Chloride 20 mEq ER Tab PO SCH (09:13)
--- NOTE | 2018-04-01 13:10 | Internal Medicine Prog Note ---
Internal Medicine Subjective - Subjective Service Date: 04/01/18 Patient seen and examined:: without staff (ahe feels better) Patient is:: awake, verbal, ambulating, talking Per staff patient has:: no adverse event Internal Medicine Objective - Results Result Diagrams: 03/29/18 20:36 03/29/18 20:36 Recent Labs: Laboratory Last Values WBC 5.5 Th/cmm (4.8-10.8) 03/29/18 20:36 RBC 3.28 Mil/cmm (3.80-5.80) L 03/29/18 20:36 Hgb 9.8 gm/dL (12-16) L 03/29/18 20:36 Hct 29.5 % (41.0-60) L 03/29/18 20:36 MCV 90.0 fl (80-99) 03/29/18 20:36 MCH 30.0 pg (27.0-31.0) 03/29/18 20:36 MCHC Differential 33.3 pg (28.0-36.0) 03/29/18 20:36 RDW 15.1 % (11.5-20.0) 03/29/18 20:36 Plt Count 267 Th/cmm (150-400) 03/29/18 20:36 MPV 8.9 fl 03/29/18 20:36 Neutrophils % 84.2 % (40.0-80.0) H 03/29/18 20:36 Lymphocytes % 10.4 % (20.0-50.0) L 03/29/18 20:36 Monocytes % 5.1 % (2.0-10.0) 03/29/18 20:36 Eosinophils % 0.3 % (0.0-5.0) 03/29/18 20:36 Basophils % 0.0 % (0.0-2.0) 03/29/18 20:36 Sodium 137 mEq/L (136-145) 03/29/18 20:36 Potassium 4.1 mEq/L (3.5-5.1) 03/29/18 20:36 Chloride 105 mEq/L (98-107) 03/29/18 20:36 Carbon Dioxide 24.0 mEq/L (21.0-31.0) 03/29/18 20:36 Anion Gap 12.1 (7.0-16.0) 03/29/18 20:36 BUN 26 mg/dL (7-25) H 03/29/18 20:36 Creatinine 1.1 mg/dL (0.7-1.3) 03/29/18 20:36 Est GFR ( Amer) > 60.0 ml/min (>90) 03/29/18 20:36 Est GFR (Non-Af Amer) > 60.0 ml/min 03/29/18 20:36 BUN/Creatinine Ratio 23.6 03/29/18 20:36 Glucose 138 mg/dL (70-105) H 03/29/18 20:36 Hemoglobin A1c % 6.8 % (4.0-6.0) H 03/29/18 20:36 Calcium 8.5 mg/dL (8.6-10.3) L 03/29/18 20:36 Total Bilirubin 0.4 mg/dL (0.3-1.0) 03/29/18 20:36 AST 24 U/L (13-39) 03/29/18 20:36 ALT 28 U/L (7-52) 03/29/18 20:36 Alkaline Phosphatase 47 U/L (34-104) 03/29/18 20:36 Total Protein 6.4 gm/dL (6.0-8.3) 03/29/18 20:36 Albumin 3.3 gm/dL (4.2-5.5) L 03/29/18 20:36 Globulin 3.1 gm/dL 03/29/18 20:36 Albumin/Globulin Ratio 1.1 (1.0-1.8) 03/29/18 20:36 Triglycerides 75 mg/dL (<150) 03/29/18 20:36 Cholesterol 130 mg/dL (<200) 03/29/18 20:36 LDL Cholesterol Direct 71 mg/dL (75-193) L 03/29/18 20:36 HDL Cholesterol 41 mg/dL (23-92) 03/29/18 20:36 TSH 0.40 uIU/ml (0.34-5.60) 03/29/18 20:36 Urine Source CLEAN C 03/29/18 21:10 Urine Color YELLOW 03/29/18 21:10 Urine Clarity CLEAR (CLEAR) 03/29/18 21:10 Urine pH 5.5 (4.6 - 8.0) 03/29/18 21:10 Ur Specific [place] >= 1.030 (1.005-1.030) 03/29/18 21:10 Urine Protein NEGATIVE mg/dL (NEGATIVE) 03/29/18 21:10 Urine Glucose (UA) NEGATIVE mg/dL (NEGATIVE) 03/29/18 21:10 Urine Ketones TRACE mg/dL (NEGATIVE) 03/29/18 21:10 Urine Blood NEGATIVE (NEGATIVE) 03/29/18 21:10 Urine Nitrate NEGATIVE (NEGATIVE) 03/29/18 21:10 Urine Bilirubin NEGATIVE (NEGATIVE) 03/29/18 21:10 Urine Urobilinogen 0.2 E.U./dL (0.2 - 1.0) 03/29/18 21:10 Ur Leukocyte Esterase NEGATIVE (NEGATIVE) 03/29/18 21:10 Salicylates < 25.0 mg/L (30.0-100.0) L 03/29/18 20:36 Urine Opiates Screen NEGATIVE (NEGATIVE) 03/29/18 21:10 Urine Methadone Screen NEGATIVE (NEGATIVE) 03/29/18 21:10 Acetaminophen < 10.0 ug/mL (10.0-30.0) L 03/29/18 20:36 Ur Barbiturates Screen NEGATIVE (NEGATIVE) 03/29/18 21:10 Ur Tricyclics Screen NEGATIVE (NEGATIVE) 03/29/18 21:10 Ur Phencyclidine Scrn NEGATIVE (NEGATIVE) 03/29/18 21:10 Amphetamines Screen NEGATIVE (NEGATIVE) 03/29/18 21:10 U Methamphetamines Scrn NEGATIVE (NEGATIVE) 03/29/18 21:10 U Benzodiazepines Scrn NEGATIVE (NEGATIVE) 03/29/18 21:10 U Cocaine Metab Screen NEGATIVE (NEGATIVE) 03/29/18 21:10 U Cannabinoids Screen NEGATIVE (NEGATIVE) 03/29/18 21:10 Ethyl Alcohol < 10 mg/dL (0-10) 03/29/18 20:36 RPR NONREACTIVE (NONREACTIVE) 03/29/18 20:36 - Physical Exam Vitals and I&O: Vital Signs Temp 97.2 F 03/31/18 21:19 Pulse 90 03/31/18 21:19 Resp 20 03/31/18 21:19 BP 125/77 04/01/18 09:14 Pulse Ox 99 03/31/18 21:19 Intake & Output 03/31/18 04/01/18 04/01/18 18:59 06:59 18:59 Intake Total 1000 100 Balance 1000 100 Intake: Oral 1000 100 Other: # Voids 4 1 # Bowel Movements 1 Active Medications: Current Medications Acetaminophen (Tylenol) 650 mg PO Q4HR PRN PRN Reason: Mild Pain / Temp above 100 Stop: 05/28/18 22:23 Allopurinol (Zyloprim) 100 mg PO DAILY [facility] Stop: 05/29/18 08:59 Last Admin: 04/01/18 09:13 Dose: 100 mg Colchicine (Colcrys) 0.6 mg PO DAILY [facility] Stop: 05/29/18 16:59 Last Admin: 04/01/18 09:14 Dose: 0.6 mg Divalproex Sodium (Depakote Dr) 500 mg PO BID [facility]; Protocol Stop: 05/29/18 08:59 Last Admin: 04/01/18 09:13 Dose: 500 mg Docusate Sodium (Colace) 250 mg PO DAILY [facility] Stop: 05/29/18 08:59 Last Admin: 04/01/18 09:13 Dose: 250 mg Ferrous Sulfate (Iron) 325 mg PO BID [facility] Stop: 05/29/18 08:59 Last Admin: 04/01/18 09:13 Dose: 325 mg Furosemide (Lasix) 40 mg PO DAILY [facility] Stop: 05/29/18 08:59 Last Admin: 04/01/18 09:14 Dose: 40 mg Lactulose (Cephulac) 10 gm PO DAILY [facility] Stop: 05/29/18 08:59 Last Admin: 04/01/18 09:12 Dose: 10 gm Lorazepam (Ativan) 0.5 mg PO Q4HR PRN; Protocol PRN Reason: Agitation Stop: 04/28/18 23:44 Magnesium Hydroxide (Milk Of Magnesia) 30 ml PO HS PRN PRN Reason: Constipation Stop: 05/28/18 22:23 Multivitamins/Vitamin C (Theragran) 1 tab PO DAILY [facility] Stop: 05/29/18 08:59 Last Admin: 04/01/18 09:13 Dose: 1 tab Olanzapine (Zyprexa) 10 mg PO DAILY [facility]; Protocol Stop: 05/29/18 15:59 Last Admin: 04/01/18 09:12 Dose: 10 mg Olanzapine (Zyprexa) 20 mg PO HS [facility]; Protocol Stop: 05/29/18 20:59 Last Admin: 03/31/18 21:32 Dose: 20 mg Potassium Chloride (Klor-Con) 20 meq PO DAILY [facility] Stop: 05/29/18 08:59 Last Admin: 04/01/18 09:13 Dose: 20 meq Prednisone (Deltasone) 20 mg PO BID [facility] Stop: 05/29/18 08:59 Last Admin: 04/01/18 09:12 Dose: 20 mg Simvastatin (Zocor) 40 mg PO HS [facility]; Protocol Stop: 05/29/18 20:59 Last Admin: 03/31/18 21:33 Dose: 40 mg Zolpidem Tartrate (Ambien) 5 mg PO HS PRN PRN Reason: Insomnia Stop: 05/28/18 23:44 General: alert, demented HEENT: NC/AT, PERRLA, anicteric sclerae, throat clear Neck: No thyromegaly, +2 carotid pulse wo bruit, No LAD Lungs: CTAB Cardiovascular: RRR, Normal S1, Normal S2, without murmur Abdomen: soft, non-tender, non-distended Extremities: clear Neurological: no change Internal Medicine Assmt/Plan - Assessment Assessment: 1.HYPERLIPIDEMIA. 2.GOUTY ARTHRITIS. 3.ANEMIA. 4.PSYCHOSIS. - Plan Plan: CONTINUE ON CURRENT MEDICATION AND DIET.
--- NOTE | 2018-04-01 17:54 | Psychiatric Evaluation ---
DATE OF SERVICE: 04/01/2018 PSYCHIATRIC INITIAL EVALUATION AND MENTAL STATUS EXAM AGE: 67. SEX: Male. PHYSICIAN: Dr. Smart. CHIEF COMPLAINT: 5150 hold for dangerous to others. HISTORY OF PRESENT ILLNESS: The patient is a 67-year-old male who was placed on 5150 hold after the patient has been agitated and aggressive. The patient also threatened to kill other patients and the staff in the hospital, which is in [facility]. The patient also was talking to unseen persons. Also, has been having disorganized thoughts and has been having difficulty following any directions. Also, the patient has been refusing to take any medications and the patient was transferred to the hospital. The patient has been extremely angry and in irritable mood and easily agitated after his admission. Also, has been exhibiting manic behavior and has been talking to staff about his wealth and how much money he has and has been offering the staff to give them money and checks for millions of dollars. PAST PSYCHIATRIC HISTORY: The patient has history of what seems to be bipolar disorder with manic episodes. PAST MEDICAL HISTORY: The patient has gouty arthritis as well as hyperlipidemia and anemia. SOCIAL HISTORY: The patient lives in [place]. The patient does not drink alcohol or use any street drugs. ALLERGIES: No known allergies. MENTAL STATUS EXAMINATION: The patient appears his stated age. Angry. Irritable mood. Disorganized thoughts. Pressured speech. Thought processes are circumstantial with flight of ideas. The patient denied auditory or visual hallucinations, but actively responding to stimuli and talking to himself. The patient denied any thoughts of suicide or homicide, but he is agitated and aggressive. Intact immediate, recent and remote memories. Poor insight and poor judgment. ASSESSMENT: PRIMARY DIAGNOSIS: Bipolar disorder, manic episode, with psychotic features. TREATMENT PLAN: Monitor the patient's behavior closely. We will start individual as well as milieu psychotherapy. We will continue Depakote and we will get Depakote blood level and also will adjust the dose. Also, continue Zyprexa and we will adjust the dose. ESTIMATED LENGTH OF STAY: 5-7 days. THE PATIENT'S STRENGTHS AND WEAKNESSES: The patient's strength is not clear at this time. Weaknesses is his manic behavior and poor impulse control and agitation. AFTER DISCHARGE PLAN: Outpatient treatment and followup will continue as an outpatient. CRITERIA FOR DISCHARGE: The patient will not be psychotic or manicky and will stabilize psychotropic medications and will establish outpatient treatment plans. [facility]# [id number]
--- NOTE | 2018-04-01 21:28 | Progress Notes ---
DATE: 04/01/2018 PROGRESS IN THE UNIT: Case was discussed with staff of the patient, reviewed records. The patient continues to be threatening, easily agitated. He continues to be hyperverbal. He continues to be unpredictable, impulsive, needing redirection. He follows me in the unit after I finished talking to him and keeps talking in the ____ to concentrate on what I am doing. He continues to have poor insight, unpredictable, impulsive. He is compliant with the medication with no side effects, no sedation, no nausea, no extrapyramidal symptoms. PLAN: We will continue outpatient group therapy and milieu therapy, adjust medication as needed. JOB# [id number]
[2018-04-02] MEDS: Ferrous Sulfate 325 MG TAB PO SCH ×2 (09:28→16:17)
[2018-04-02] MEDS: Multivitamin Tab PO SCH (09:28)
[2018-04-02] MEDS: Potassium Chloride 20 mEq ER Tab PO SCH (09:29)
[2018-04-02] MEDS: Lactulose 10 Gm/15 mL 30mL UDC PO SCH (09:30)
--- NOTE | 2018-04-02 22:21 | Internal Medicine Prog Note ---
Internal Medicine Subjective - Subjective Service Date: 04/02/18 Patient seen and examined:: without staff Patient is:: awake, verbal, ambulating, talking Per staff patient has:: no adverse event Internal Medicine Objective - Results Result Diagrams: 03/29/18 20:36 03/29/18 20:36 Recent Labs: Laboratory Last Values WBC 5.5 Th/cmm (4.8-10.8) 03/29/18 20:36 RBC 3.28 Mil/cmm (3.80-5.80) L 03/29/18 20:36 Hgb 9.8 gm/dL (12-16) L 03/29/18 20:36 Hct 29.5 % (41.0-60) L 03/29/18 20:36 MCV 90.0 fl (80-99) 03/29/18 20:36 MCH 30.0 pg (27.0-31.0) 03/29/18 20:36 MCHC Differential 33.3 pg (28.0-36.0) 03/29/18 20:36 RDW 15.1 % (11.5-20.0) 03/29/18 20:36 Plt Count 267 Th/cmm (150-400) 03/29/18 20:36 MPV 8.9 fl 03/29/18 20:36 Neutrophils % 84.2 % (40.0-80.0) H 03/29/18 20:36 Lymphocytes % 10.4 % (20.0-50.0) L 03/29/18 20:36 Monocytes % 5.1 % (2.0-10.0) 03/29/18 20:36 Eosinophils % 0.3 % (0.0-5.0) 03/29/18 20:36 Basophils % 0.0 % (0.0-2.0) 03/29/18 20:36 Sodium 137 mEq/L (136-145) 03/29/18 20:36 Potassium 4.1 mEq/L (3.5-5.1) 03/29/18 20:36 Chloride 105 mEq/L (98-107) 03/29/18 20:36 Carbon Dioxide 24.0 mEq/L (21.0-31.0) 03/29/18 20:36 Anion Gap 12.1 (7.0-16.0) 03/29/18 20:36 BUN 26 mg/dL (7-25) H 03/29/18 20:36 Creatinine 1.1 mg/dL (0.7-1.3) 03/29/18 20:36 Est GFR ( Amer) > 60.0 ml/min (>90) 03/29/18 20:36 Est GFR (Non-Af Amer) > 60.0 ml/min 03/29/18 20:36 BUN/Creatinine Ratio 23.6 03/29/18 20:36 Glucose 138 mg/dL (70-105) H 03/29/18 20:36 Hemoglobin A1c % 6.8 % (4.0-6.0) H 03/29/18 20:36 Calcium 8.5 mg/dL (8.6-10.3) L 03/29/18 20:36 Total Bilirubin 0.4 mg/dL (0.3-1.0) 03/29/18 20:36 AST 24 U/L (13-39) 03/29/18 20:36 ALT 28 U/L (7-52) 03/29/18 20:36 Alkaline Phosphatase 47 U/L (34-104) 03/29/18 20:36 Total Protein 6.4 gm/dL (6.0-8.3) 03/29/18 20:36 Albumin 3.3 gm/dL (4.2-5.5) L 03/29/18 20:36 Globulin 3.1 gm/dL 03/29/18 20:36 Albumin/Globulin Ratio 1.1 (1.0-1.8) 03/29/18 20:36 Triglycerides 75 mg/dL (<150) 03/29/18 20:36 Cholesterol 130 mg/dL (<200) 03/29/18 20:36 LDL Cholesterol Direct 71 mg/dL (75-193) L 03/29/18 20:36 HDL Cholesterol 41 mg/dL (23-92) 03/29/18 20:36 TSH 0.40 uIU/ml (0.34-5.60) 03/29/18 20:36 Urine Source CLEAN C 03/29/18 21:10 Urine Color YELLOW 03/29/18 21:10 Urine Clarity CLEAR (CLEAR) 03/29/18 21:10 Urine pH 5.5 (4.6 - 8.0) 03/29/18 21:10 Ur Specific [place] >= 1.030 (1.005-1.030) 03/29/18 21:10 Urine Protein NEGATIVE mg/dL (NEGATIVE) 03/29/18 21:10 Urine Glucose (UA) NEGATIVE mg/dL (NEGATIVE) 03/29/18 21:10 Urine Ketones TRACE mg/dL (NEGATIVE) 03/29/18 21:10 Urine Blood NEGATIVE (NEGATIVE) 03/29/18 21:10 Urine Nitrate NEGATIVE (NEGATIVE) 03/29/18 21:10 Urine Bilirubin NEGATIVE (NEGATIVE) 03/29/18 21:10 Urine Urobilinogen 0.2 E.U./dL (0.2 - 1.0) 03/29/18 21:10 Ur Leukocyte Esterase NEGATIVE (NEGATIVE) 03/29/18 21:10 Salicylates < 25.0 mg/L (30.0-100.0) L 03/29/18 20:36 Urine Opiates Screen NEGATIVE (NEGATIVE) 03/29/18 21:10 Urine Methadone Screen NEGATIVE (NEGATIVE) 03/29/18 21:10 Acetaminophen < 10.0 ug/mL (10.0-30.0) L 03/29/18 20:36 Ur Barbiturates Screen NEGATIVE (NEGATIVE) 03/29/18 21:10 Ur Tricyclics Screen NEGATIVE (NEGATIVE) 03/29/18 21:10 Ur Phencyclidine Scrn NEGATIVE (NEGATIVE) 03/29/18 21:10 Amphetamines Screen NEGATIVE (NEGATIVE) 03/29/18 21:10 U Methamphetamines Scrn NEGATIVE (NEGATIVE) 03/29/18 21:10 U Benzodiazepines Scrn NEGATIVE (NEGATIVE) 03/29/18 21:10 U Cocaine Metab Screen NEGATIVE (NEGATIVE) 03/29/18 21:10 U Cannabinoids Screen NEGATIVE (NEGATIVE) 03/29/18 21:10 Ethyl Alcohol < 10 mg/dL (0-10) 03/29/18 20:36 RPR NONREACTIVE (NONREACTIVE) 03/29/18 20:36 - Physical Exam Vitals and I&O: Vital Signs Temp 98.1 F 04/02/18 20:29 Pulse 94 04/02/18 20:29 Resp 20 04/02/18 20:29 BP 151/92 04/02/18 20:29 Pulse Ox 99 04/02/18 20:29 Intake & Output 04/02/18 04/02/18 04/03/18 06:59 18:59 06:59 Intake Total 280 1500 280 Balance 280 1500 280 Intake: Oral 280 1500 280 Other: # Voids 3 4 2 # Bowel Movements 0 1 1 Active Medications: Current Medications Acetaminophen (Tylenol) 650 mg PO Q4HR PRN PRN Reason: Mild Pain / Temp above 100 Stop: 05/28/18 22:23 Allopurinol (Zyloprim) 100 mg PO DAILY [facility] Stop: 05/29/18 08:59 Last Admin: 04/02/18 09:28 Dose: 100 mg Colchicine (Colcrys) 0.6 mg PO DAILY [facility] Stop: 05/29/18 16:59 Last Admin: 04/02/18 09:29 Dose: 0.6 mg Divalproex Sodium (Depakote Dr) 500 mg PO BID [facility]; Protocol Stop: 05/29/18 08:59 Last Admin: 04/02/18 16:17 Dose: 500 mg Docusate Sodium (Colace) 250 mg PO DAILY [facility] Stop: 05/29/18 08:59 Last Admin: 04/02/18 09:28 Dose: 250 mg Ferrous Sulfate (Iron) 325 mg PO BID [facility] Stop: 05/29/18 08:59 Last Admin: 04/02/18 16:17 Dose: 325 mg Furosemide (Lasix) 40 mg PO DAILY [facility] Stop: 05/29/18 08:59 Last Admin: 04/02/18 09:31 Dose: 40 mg Lactulose (Cephulac) 10 gm PO DAILY [facility] Stop: 05/29/18 08:59 Last Admin: 04/02/18 09:30 Dose: 10 gm Lorazepam (Ativan) 0.5 mg PO Q4HR PRN; Protocol PRN Reason: Agitation Stop: 04/28/18 23:44 Last Admin: 04/02/18 21:03 Dose: 0.5 mg Magnesium Hydroxide (Milk Of Magnesia) 30 ml PO HS PRN PRN Reason: Constipation Stop: 05/28/18 22:23 Multivitamins/Vitamin C (Theragran) 1 tab PO DAILY [facility] Stop: 05/29/18 08:59 Last Admin: 04/02/18 09:28 Dose: 1 tab Olanzapine (Zyprexa) 10 mg PO HS [facility]; Protocol Stop: 06/01/18 20:59 Last Admin: 04/02/18 21:03 Dose: 10 mg Potassium Chloride (Klor-Con) 20 meq PO DAILY [facility] Stop: 05/29/18 08:59 Last Admin: 04/02/18 09:29 Dose: 20 meq Prednisone (Deltasone) 20 mg PO BID [facility] Stop: 05/29/18 08:59 Last Admin: 04/02/18 16:17 Dose: 20 mg Quetiapine Fumarate (Seroquel) 100 mg PO BID [facility]; Protocol Stop: 06/01/18 08:59 Last Admin: 04/02/18 16:17 Dose: 100 mg Simvastatin (Zocor) 40 mg PO HS [facility]; Protocol Stop: 05/29/18 20:59 Last Admin: 04/02/18 21:03 Dose: 40 mg Zolpidem Tartrate (Ambien) 5 mg PO HS PRN PRN Reason: Insomnia Stop: 05/28/18 23:44 Last Admin: 04/02/18 21:03 Dose: 5 mg General: alert, demented HEENT: NC/AT, PERRLA, anicteric sclerae, throat clear Neck: No thyromegaly, +2 carotid pulse wo bruit, No LAD Lungs: CTAB Cardiovascular: RRR, Normal S1, Normal S2, without murmur Abdomen: soft, non-tender, non-distended Extremities: clear Neurological: no change Internal Medicine Assmt/Plan - Assessment Assessment: 1.HYPERLIPIDEMIA. 2.GOUTY ARTHRITIS. 3.ANEMIA. 4.PSYCHOSIS. - Plan Plan: CONTINUE ON CURRENT MEDICATION AND DIET. Nutritional Asmnt/Malnutr-PDOC - Dietary Evaluation Malnutrition Findings (Please click <Entered> for more info): Nutritional Asmnt/Malnutrition Start: 04/02/18 14: 21 Text: Status: Complete Freq: Protocol: Document 04/02/18 14:21 [email or web address] (Rec: 04/02/18 14:29 [id number]) Nutritional Asmnt/Malnutrition Patient General Information Nutritional Screening Moderate Risk Diagnosis psychosis Pertinent Medical Hx/Surgical Hx gouty arthritis, HTN, hyperlipidemia, psychosis Subjective Information Per EMR, PO intake 75% of meals. Per nurse note, pt was alert, sometimes agitated. Current Diet Order/ Nutrition Support [facility] [place] soft chopped [place] Pertinent Medications colace, iron, lasix, theragran , kcl, seroquel Pertinent Labs 03/29 BUN 26, glucose 138, A1c 6.8, Ca 8.5 Nutritional Hx/Data Height 1.8 m Height (Calculated Centimeters) 180.3 Current Weight (lbs) 77.111 kg Weight (Calculated Kilograms) 77.1 Weight (Calculated Grams) 12471.7 [place] Body Weight 172 Body Mass Index (BMI) 23.7 Weight Status Approriate GI Symptoms GI Symptoms None Last BM 04/01 x 2 Difficult in: None Skin Integrity/Comment: intact Current %PO Good (75-100%) Estimated Nutritional Goals BEE in Kcals: Using Current wt Calories/Kcals/Kg 25-30 Kcals Calculated [id number] Protein: Using Current wt Protein g/k-1.2 Protein Calculated 77-92 Fluid: ml 1925-2310ml (1ml/kcal) Nutritional Problem 1. Problem Problem altered nutrition related labs Etiology endocrine dysfunction Signs/Symptoms: glucose 138, A1c 6.8 Malnutrition Alert Is there a minimum of two criteria No selected? Query Text:Check all the applicable criteria. A minimum of two criteria are recommended for diagnosis of either severe or non-severe malnutrition. Malnutrition Related to Morbid Obesity Malnutrition related to morbid obesity No Intervention/Recommendation Comments 1. Continue with current diet as ordered. Monitor glucose. Consider CCHO diet if glucose elevated. 2. Monitor PO intake, wt, labs and skin integrity 3. F/U as moderate risk in 3-5 days, 04/05-04/07 Expected Outcomes/Goals Expected Outcomes/Goals 1. PO intake to meet at least 75% of nutritional needs. 2. Wt stability, skin to remain intact, labs to approach WNL.
[2018-04-03] MEDS: Lactulose 10 Gm/15 mL 30mL UDC PO SCH (08:19)
[2018-04-03] MEDS: Ferrous Sulfate 325 MG TAB PO SCH ×2 (08:21→17:01)
[2018-04-03] MEDS: Potassium Chloride 20 mEq ER Tab PO SCH (08:21)
[2018-04-03] MEDS: Multivitamin Tab PO SCH (08:21)
--- NOTE | 2018-04-03 11:58 | Internal Medicine Prog Note ---
Internal Medicine Subjective - Subjective Service Date: 04/03/18 Patient seen and examined:: with staff Patient is:: awake, verbal, ambulating, talking Per staff patient has:: no adverse event Internal Medicine Objective - Results Result Diagrams: 03/29/18 20:36 03/29/18 20:36 Recent Labs: Laboratory Last Values WBC 5.5 Th/cmm (4.8-10.8) 03/29/18 20:36 RBC 3.28 Mil/cmm (3.80-5.80) L 03/29/18 20:36 Hgb 9.8 gm/dL (12-16) L 03/29/18 20:36 Hct 29.5 % (41.0-60) L 03/29/18 20:36 MCV 90.0 fl (80-99) 03/29/18 20:36 MCH 30.0 pg (27.0-31.0) 03/29/18 20:36 MCHC Differential 33.3 pg (28.0-36.0) 03/29/18 20:36 RDW 15.1 % (11.5-20.0) 03/29/18 20:36 Plt Count 267 Th/cmm (150-400) 03/29/18 20:36 MPV 8.9 fl 03/29/18 20:36 Neutrophils % 84.2 % (40.0-80.0) H 03/29/18 20:36 Lymphocytes % 10.4 % (20.0-50.0) L 03/29/18 20:36 Monocytes % 5.1 % (2.0-10.0) 03/29/18 20:36 Eosinophils % 0.3 % (0.0-5.0) 03/29/18 20:36 Basophils % 0.0 % (0.0-2.0) 03/29/18 20:36 Sodium 137 mEq/L (136-145) 03/29/18 20:36 Potassium 4.1 mEq/L (3.5-5.1) 03/29/18 20:36 Chloride 105 mEq/L (98-107) 03/29/18 20:36 Carbon Dioxide 24.0 mEq/L (21.0-31.0) 03/29/18 20:36 Anion Gap 12.1 (7.0-16.0) 03/29/18 20:36 BUN 26 mg/dL (7-25) H 03/29/18 20:36 Creatinine 1.1 mg/dL (0.7-1.3) 03/29/18 20:36 Est GFR ( Amer) > 60.0 ml/min (>90) 03/29/18 20:36 Est GFR (Non-Af Amer) > 60.0 ml/min 03/29/18 20:36 BUN/Creatinine Ratio 23.6 03/29/18 20:36 Glucose 138 mg/dL (70-105) H 03/29/18 20:36 Hemoglobin A1c % 6.8 % (4.0-6.0) H 03/29/18 20:36 Calcium 8.5 mg/dL (8.6-10.3) L 03/29/18 20:36 Total Bilirubin 0.4 mg/dL (0.3-1.0) 03/29/18 20:36 AST 24 U/L (13-39) 03/29/18 20:36 ALT 28 U/L (7-52) 03/29/18 20:36 Alkaline Phosphatase 47 U/L (34-104) 03/29/18 20:36 Total Protein 6.4 gm/dL (6.0-8.3) 03/29/18 20:36 Albumin 3.3 gm/dL (4.2-5.5) L 03/29/18 20:36 Globulin 3.1 gm/dL 03/29/18 20:36 Albumin/Globulin Ratio 1.1 (1.0-1.8) 03/29/18 20:36 Triglycerides 75 mg/dL (<150) 03/29/18 20:36 Cholesterol 130 mg/dL (<200) 03/29/18 20:36 LDL Cholesterol Direct 71 mg/dL (75-193) L 03/29/18 20:36 HDL Cholesterol 41 mg/dL (23-92) 03/29/18 20:36 TSH 0.40 uIU/ml (0.34-5.60) 03/29/18 20:36 Urine Source CLEAN C 03/29/18 21:10 Urine Color YELLOW 03/29/18 21:10 Urine Clarity CLEAR (CLEAR) 03/29/18 21:10 Urine pH 5.5 (4.6 - 8.0) 03/29/18 21:10 Ur Specific [place] >= 1.030 (1.005-1.030) 03/29/18 21:10 Urine Protein NEGATIVE mg/dL (NEGATIVE) 03/29/18 21:10 Urine Glucose (UA) NEGATIVE mg/dL (NEGATIVE) 03/29/18 21:10 Urine Ketones TRACE mg/dL (NEGATIVE) 03/29/18 21:10 Urine Blood NEGATIVE (NEGATIVE) 03/29/18 21:10 Urine Nitrate NEGATIVE (NEGATIVE) 03/29/18 21:10 Urine Bilirubin NEGATIVE (NEGATIVE) 03/29/18 21:10 Urine Urobilinogen 0.2 E.U./dL (0.2 - 1.0) 03/29/18 21:10 Ur Leukocyte Esterase NEGATIVE (NEGATIVE) 03/29/18 21:10 Salicylates < 25.0 mg/L (30.0-100.0) L 03/29/18 20:36 Urine Opiates Screen NEGATIVE (NEGATIVE) 03/29/18 21:10 Urine Methadone Screen NEGATIVE (NEGATIVE) 03/29/18 21:10 Acetaminophen < 10.0 ug/mL (10.0-30.0) L 03/29/18 20:36 Ur Barbiturates Screen NEGATIVE (NEGATIVE) 03/29/18 21:10 Ur Tricyclics Screen NEGATIVE (NEGATIVE) 03/29/18 21:10 Ur Phencyclidine Scrn NEGATIVE (NEGATIVE) 03/29/18 21:10 Amphetamines Screen NEGATIVE (NEGATIVE) 03/29/18 21:10 U Methamphetamines Scrn NEGATIVE (NEGATIVE) 03/29/18 21:10 U Benzodiazepines Scrn NEGATIVE (NEGATIVE) 03/29/18 21:10 U Cocaine Metab Screen NEGATIVE (NEGATIVE) 03/29/18 21:10 U Cannabinoids Screen NEGATIVE (NEGATIVE) 03/29/18 21:10 Ethyl Alcohol < 10 mg/dL (0-10) 03/29/18 20:36 RPR NONREACTIVE (NONREACTIVE) 03/29/18 20:36 - Physical Exam Vitals and I&O: Vital Signs Temp 97.2 F 04/03/18 06:52 Pulse 93 04/03/18 06:52 Resp 20 04/03/18 06:52 BP 148/97 04/03/18 08:22 Pulse Ox 97 04/03/18 06:52 Intake & Output 04/02/18 04/03/18 04/03/18 18:59 06:59 18:59 Intake Total 1500 460 Balance 1500 460 Intake: Oral 1500 460 Other: # Voids 4 2 # Bowel Movements 1 0 Active Medications: Current Medications Acetaminophen (Tylenol) 650 mg PO Q4HR PRN PRN Reason: Mild Pain / Temp above 100 Stop: 05/28/18 22:23 Allopurinol (Zyloprim) 100 mg PO DAILY [facility] Stop: 05/29/18 08:59 Last Admin: 04/03/18 08:20 Dose: 100 mg Colchicine (Colcrys) 0.6 mg PO DAILY [facility] Stop: 05/29/18 16:59 Last Admin: 04/03/18 08:26 Dose: 0.6 mg Divalproex Sodium (Depakote Dr) 500 mg PO BID [facility]; Protocol Stop: 05/29/18 08:59 Last Admin: 04/03/18 08:21 Dose: 500 mg Docusate Sodium (Colace) 250 mg PO DAILY [facility] Stop: 05/29/18 08:59 Last Admin: 04/03/18 08:20 Dose: 250 mg Ferrous Sulfate (Iron) 325 mg PO BID [facility] Stop: 05/29/18 08:59 Last Admin: 04/03/18 08:21 Dose: 325 mg Furosemide (Lasix) 40 mg PO DAILY [facility] Stop: 05/29/18 08:59 Last Admin: 04/03/18 08:22 Dose: 40 mg Lactulose (Cephulac) 10 gm PO DAILY [facility] Stop: 05/29/18 08:59 Last Admin: 04/03/18 08:19 Dose: 10 gm Lorazepam (Ativan) 0.5 mg PO Q4HR PRN; Protocol PRN Reason: Agitation Stop: 04/28/18 23:44 Last Admin: 04/02/18 21:03 Dose: 0.5 mg Magnesium Hydroxide (Milk Of Magnesia) 30 ml PO HS PRN PRN Reason: Constipation Stop: 05/28/18 22:23 Multivitamins/Vitamin C (Theragran) 1 tab PO DAILY [facility] Stop: 05/29/18 08:59 Last Admin: 04/03/18 08:21 Dose: 1 tab Olanzapine (Zyprexa) 10 mg PO HS [facility]; Protocol Stop: 06/01/18 20:59 Last Admin: 04/02/18 21:03 Dose: 10 mg Potassium Chloride (Klor-Con) 20 meq PO DAILY [facility] Stop: 05/29/18 08:59 Last Admin: 04/03/18 08:21 Dose: 20 meq Prednisone (Deltasone) 20 mg PO BID [facility] Stop: 05/29/18 08:59 Last Admin: 04/03/18 08:20 Dose: 20 mg Quetiapine Fumarate (Seroquel) 100 mg PO BID [facility]; Protocol Stop: 06/01/18 08:59 Last Admin: 04/03/18 08:20 Dose: 100 mg Quetiapine Fumarate (Seroquel) 100 mg PO HS [facility]; Protocol Stop: 06/02/18 20:59 Simvastatin (Zocor) 40 mg PO HS [facility]; Protocol Stop: 05/29/18 20:59 Last Admin: 04/02/18 21:03 Dose: 40 mg Zolpidem Tartrate (Ambien) 5 mg PO HS PRN PRN Reason: Insomnia Stop: 05/28/18 23:44 Last Admin: 04/02/18 21:03 Dose: 5 mg General: alert, demented HEENT: NC/AT, PERRLA, anicteric sclerae, throat clear Neck: No thyromegaly, +2 carotid pulse wo bruit, No LAD Lungs: CTAB Cardiovascular: RRR, Normal S1, Normal S2, without murmur Abdomen: soft, non-tender, non-distended Extremities: clear Neurological: no change Internal Medicine Assmt/Plan - Assessment Assessment: 1.HYPERLIPIDEMIA. 2.GOUTY ARTHRITIS. 3.ANEMIA. 4.PSYCHOSIS. - Plan Plan: CONTINUE ON CURRENT MEDICATION AND DIET. Nutritional Asmnt/Malnutr-PDOC - Dietary Evaluation Malnutrition Findings (Please click <Entered> for more info): Nutritional Asmnt/Malnutrition Start: 04/02/18 14: 21 Text: Status: Complete Freq: Protocol: Document 04/02/18 14:21 LCHENG (Rec: 04/02/18 14:29 LCHENG [email or web address]) Nutritional Asmnt/Malnutrition Patient General Information Nutritional Screening Moderate Risk Diagnosis psychosis Pertinent Medical Hx/Surgical Hx gouty arthritis, HTN, hyperlipidemia, psychosis Subjective Information Per EMR, PO intake 75% of meals. Per nurse note, pt was alert, sometimes agitated. Current Diet Order/ Nutrition Support [facility] soft chopped [place] Pertinent Medications colace, iron, lasix, theragran , kcl, seroquel Pertinent Labs 03/29 BUN 26, glucose 138, A1c 6.8, Ca 8.5 Nutritional Hx/Data Height 1.8 m Height (Calculated Centimeters) 180.3 Current Weight (lbs) 77.111 kg Weight (Calculated Kilograms) 77.1 Weight (Calculated Grams) 29102.7 [place] Body Weight 172 Body Mass Index (BMI) 23.7 Weight Status Approriate GI Symptoms GI Symptoms None Last BM 04/01 x 2 Difficult in: None Skin Integrity/Comment: intact Current %PO Good (75-100%) Estimated Nutritional Goals BEE in Kcals: Using Current wt Calories/Kcals/Kg 25-30 Kcals Calculated 2225-9833 Protein: Using Current wt Protein g/k-1.2 Protein Calculated 77-92 Fluid: ml 1925-2310ml (1ml/kcal) Nutritional Problem 1. Problem Problem altered nutrition related labs Etiology endocrine dysfunction Signs/Symptoms: glucose 138, A1c 6.8 Malnutrition Alert Is there a minimum of two criteria No selected? Query Text:Check all the applicable criteria. A minimum of two criteria are recommended for diagnosis of either severe or non-severe malnutrition. Malnutrition Related to Morbid Obesity Malnutrition related to morbid obesity No Intervention/Recommendation Comments 1. Continue with current diet as ordered. Monitor glucose. Consider CCHO diet if glucose elevated. 2. Monitor PO intake, wt, labs and skin integrity 3. F/U as moderate risk in 3-5 days, 04/05-04/07 Expected Outcomes/Goals Expected Outcomes/Goals 1. PO intake to meet at least 75% of nutritional needs. 2. Wt stability, skin to remain intact, labs to approach WNL.
--- NOTE | 2018-04-03 23:46 | Progress Notes ---
DATE: 04/03/2018 Chart reviewed and the patient interviewed. Also discussed the patient's condition with the staff and reviewed records and labs. The patient is severely irritable and he is argumentative. The patient also is verbally abusive to staff. The patient also is still easily agitated and he is still in angry and in irritable mood. On the other hand, the patient is compliant with taking his medications with no side effects of medications. Also, has slept better last night. ASSESSMENT: The patient is still agitated and needs close monitoring. TREATMENT PLAN: Continue to monitor behavior and medications closely. Also, we will increase Seroquel to 100 mg twice a day and 100 mg at bedtime and continue to follow up closely. [facility]# [id number]
--- NOTE | 2018-04-03 23:57 | Progress Notes ---
DATE: 04/02/2018 SUBJECTIVE: Chart reviewed and the patient interviewed. Also discussed the patient's condition with the staff and reviewed records and labs. The patient continued to be argumentative and is verbally abusive. The patient also is having severe mood swings and is easily agitated and suspicious and paranoid. The patient also is argumentative. He also has difficulty sleeping at night. It seems that Zyprexa has not been helping the patient's much. ASSESSMENT: The patient is still agitated and psychotic. TREATMENT PLAN: We will start the patient on Seroquel in a dose of 100 mg twice a day. Also, we will decrease Zyprexa to 10 mg every bedtime with plan to stop it completely. [facility]# [id number]
[2018-04-04] MEDS: Multivitamin Tab PO SCH (09:18)
[2018-04-04] MEDS: Ferrous Sulfate 325 MG TAB PO SCH ×2 (09:22→17:44)
[2018-04-04] MEDS: Lactulose 10 Gm/15 mL 30mL UDC PO SCH (09:23)
[2018-04-04] MEDS: Potassium Chloride 20 mEq ER Tab PO SCH (09:23)
--- NOTE | 2018-04-04 22:33 | Internal Medicine Prog Note ---
Internal Medicine Subjective - Subjective Service Date: 04/04/18 Patient seen and examined:: without staff Patient is:: awake, verbal, ambulating, talking Per staff patient has:: no adverse event Internal Medicine Objective - Results Result Diagrams: 03/29/18 20:36 03/29/18 20:36 Recent Labs: Laboratory Last Values WBC 5.5 Th/cmm (4.8-10.8) 03/29/18 20:36 RBC 3.28 Mil/cmm (3.80-5.80) L 03/29/18 20:36 Hgb 9.8 gm/dL (12-16) L 03/29/18 20:36 Hct 29.5 % (41.0-60) L 03/29/18 20:36 MCV 90.0 fl (80-99) 03/29/18 20:36 MCH 30.0 pg (27.0-31.0) 03/29/18 20:36 MCHC Differential 33.3 pg (28.0-36.0) 03/29/18 20:36 RDW 15.1 % (11.5-20.0) 03/29/18 20:36 Plt Count 267 Th/cmm (150-400) 03/29/18 20:36 MPV 8.9 fl 03/29/18 20:36 Neutrophils % 84.2 % (40.0-80.0) H 03/29/18 20:36 Lymphocytes % 10.4 % (20.0-50.0) L 03/29/18 20:36 Monocytes % 5.1 % (2.0-10.0) 03/29/18 20:36 Eosinophils % 0.3 % (0.0-5.0) 03/29/18 20:36 Basophils % 0.0 % (0.0-2.0) 03/29/18 20:36 Sodium 137 mEq/L (136-145) 03/29/18 20:36 Potassium 4.1 mEq/L (3.5-5.1) 03/29/18 20:36 Chloride 105 mEq/L (98-107) 03/29/18 20:36 Carbon Dioxide 24.0 mEq/L (21.0-31.0) 03/29/18 20:36 Anion Gap 12.1 (7.0-16.0) 03/29/18 20:36 BUN 26 mg/dL (7-25) H 03/29/18 20:36 Creatinine 1.1 mg/dL (0.7-1.3) 03/29/18 20:36 Est GFR ( Amer) > 60.0 ml/min (>90) 03/29/18 20:36 Est GFR (Non-Af Amer) > 60.0 ml/min 03/29/18 20:36 BUN/Creatinine Ratio 23.6 03/29/18 20:36 Glucose 138 mg/dL (70-105) H 03/29/18 20:36 Hemoglobin A1c % 6.8 % (4.0-6.0) H 03/29/18 20:36 Calcium 8.5 mg/dL (8.6-10.3) L 03/29/18 20:36 Total Bilirubin 0.4 mg/dL (0.3-1.0) 03/29/18 20:36 AST 24 U/L (13-39) 03/29/18 20:36 ALT 28 U/L (7-52) 03/29/18 20:36 Alkaline Phosphatase 47 U/L (34-104) 03/29/18 20:36 Total Protein 6.4 gm/dL (6.0-8.3) 03/29/18 20:36 Albumin 3.3 gm/dL (4.2-5.5) L 03/29/18 20:36 Globulin 3.1 gm/dL 03/29/18 20:36 Albumin/Globulin Ratio 1.1 (1.0-1.8) 03/29/18 20:36 Triglycerides 75 mg/dL (<150) 03/29/18 20:36 Cholesterol 130 mg/dL (<200) 03/29/18 20:36 LDL Cholesterol Direct 71 mg/dL (75-193) L 03/29/18 20:36 HDL Cholesterol 41 mg/dL (23-92) 03/29/18 20:36 TSH 0.40 uIU/ml (0.34-5.60) 03/29/18 20:36 Urine Source CLEAN C 03/29/18 21:10 Urine Color YELLOW 03/29/18 21:10 Urine Clarity CLEAR (CLEAR) 03/29/18 21:10 Urine pH 5.5 (4.6 - 8.0) 03/29/18 21:10 Ur Specific [place] >= 1.030 (1.005-1.030) 03/29/18 21:10 Urine Protein NEGATIVE mg/dL (NEGATIVE) 03/29/18 21:10 Urine Glucose (UA) NEGATIVE mg/dL (NEGATIVE) 03/29/18 21:10 Urine Ketones TRACE mg/dL (NEGATIVE) 03/29/18 21:10 Urine Blood NEGATIVE (NEGATIVE) 03/29/18 21:10 Urine Nitrate NEGATIVE (NEGATIVE) 03/29/18 21:10 Urine Bilirubin NEGATIVE (NEGATIVE) 03/29/18 21:10 Urine Urobilinogen 0.2 E.U./dL (0.2 - 1.0) 03/29/18 21:10 Ur Leukocyte Esterase NEGATIVE (NEGATIVE) 03/29/18 21:10 Salicylates < 25.0 mg/L (30.0-100.0) L 03/29/18 20:36 Urine Opiates Screen NEGATIVE (NEGATIVE) 03/29/18 21:10 Urine Methadone Screen NEGATIVE (NEGATIVE) 03/29/18 21:10 Acetaminophen < 10.0 ug/mL (10.0-30.0) L 03/29/18 20:36 Ur Barbiturates Screen NEGATIVE (NEGATIVE) 03/29/18 21:10 Ur Tricyclics Screen NEGATIVE (NEGATIVE) 03/29/18 21:10 Ur Phencyclidine Scrn NEGATIVE (NEGATIVE) 03/29/18 21:10 Amphetamines Screen NEGATIVE (NEGATIVE) 03/29/18 21:10 U Methamphetamines Scrn NEGATIVE (NEGATIVE) 03/29/18 21:10 U Benzodiazepines Scrn NEGATIVE (NEGATIVE) 03/29/18 21:10 U Cocaine Metab Screen NEGATIVE (NEGATIVE) 03/29/18 21:10 U Cannabinoids Screen NEGATIVE (NEGATIVE) 03/29/18 21:10 Ethyl Alcohol < 10 mg/dL (0-10) 03/29/18 20:36 RPR NONREACTIVE (NONREACTIVE) 03/29/18 20:36 - Physical Exam Vitals and I&O: Vital Signs Temp 98.4 F 04/04/18 20:00 Pulse 80 04/04/18 20:00 Resp 20 04/04/18 20:00 BP 128/68 04/04/18 20:00 Pulse Ox 97 04/04/18 20:00 Intake & Output 04/04/18 04/04/18 04/05/18 06:59 18:59 06:59 Intake Total 120 1200 Balance 120 1200 Intake: Oral 120 1200 Other: # Voids 3 4 # Bowel Movements 0 1 Active Medications: Current Medications Acetaminophen (Tylenol) 650 mg PO Q4HR PRN PRN Reason: Mild Pain / Temp above 100 Stop: 05/28/18 22:23 Allopurinol (Zyloprim) 100 mg PO DAILY [facility] Stop: 05/29/18 08:59 Last Admin: 04/04/18 09:23 Dose: 100 mg Colchicine (Colcrys) 0.6 mg PO DAILY [facility] Stop: 05/29/18 16:59 Last Admin: 04/04/18 09:26 Dose: 0.6 mg Divalproex Sodium (Depakote Dr) 500 mg PO BID [facility]; Protocol Stop: 05/29/18 08:59 Last Admin: 04/04/18 17:11 Dose: Not Given Docusate Sodium (Colace) 250 mg PO DAILY [facility] Stop: 05/29/18 08:59 Last Admin: 04/04/18 09:22 Dose: 250 mg Ferrous Sulfate (Iron) 325 mg PO BID [facility] Stop: 05/29/18 08:59 Last Admin: 04/04/18 17:44 Dose: 325 mg Furosemide (Lasix) 40 mg PO DAILY [facility] Stop: 05/29/18 08:59 Last Admin: 04/04/18 09:21 Dose: 40 mg Lactulose (Cephulac) 10 gm PO DAILY [facility] Stop: 05/29/18 08:59 Last Admin: 04/04/18 09:23 Dose: 10 gm Lorazepam (Ativan) 0.5 mg PO Q4HR PRN; Protocol PRN Reason: Agitation Stop: 04/28/18 23:44 Last Admin: 04/04/18 17:44 Dose: 0.5 mg Magnesium Hydroxide (Milk Of Magnesia) 30 ml PO HS PRN PRN Reason: Constipation Stop: 05/28/18 22:23 Multivitamins/Vitamin C (Theragran) 1 tab PO DAILY [facility] Stop: 05/29/18 08:59 Last Admin: 04/04/18 09:18 Dose: 1 tab Olanzapine (Zyprexa) 10 mg PO HS [facility]; Protocol Stop: 06/01/18 20:59 Last Admin: 04/04/18 21:19 Dose: 10 mg Potassium Chloride (Klor-Con) 20 meq PO DAILY [facility] Stop: 05/29/18 08:59 Last Admin: 04/04/18 09:23 Dose: 20 meq Prednisone (Deltasone) 20 mg PO BID [facility] Stop: 05/29/18 08:59 Last Admin: 04/04/18 17:44 Dose: 20 mg Quetiapine Fumarate (Seroquel) 150 mg PO BID [facility]; Protocol Stop: 06/03/18 08:59 Last Admin: 04/04/18 17:45 Dose: 150 mg Quetiapine Fumarate (Seroquel) 150 mg PO HS [facility]; Protocol Stop: 06/03/18 20:59 Last Admin: 04/04/18 21:19 Dose: 150 mg Simvastatin (Zocor) 40 mg PO HS [facility]; Protocol Stop: 05/29/18 20:59 Last Admin: 04/04/18 21:19 Dose: 40 mg Zolpidem Tartrate (Ambien) 5 mg PO HS PRN PRN Reason: Insomnia Stop: 05/28/18 23:44 Last Admin: 04/04/18 21:21 Dose: 5 mg General: alert, demented HEENT: NC/AT, PERRLA, anicteric sclerae, throat clear Neck: No thyromegaly, +2 carotid pulse wo bruit, No LAD Lungs: CTAB Cardiovascular: RRR, Normal S1, Normal S2, without murmur Abdomen: soft, non-tender, non-distended Extremities: clear Neurological: no change Internal Medicine Assmt/Plan - Assessment Assessment: 1.HYPERLIPIDEMIA. 2.GOUTY ARTHRITIS. 3.ANEMIA. 4.PSYCHOSIS. - Plan Plan: CONTINUE ON CURRENT MEDICATION AND DIET. Nutritional Asmnt/Malnutr-PDOC - Dietary Evaluation Malnutrition Findings (Please click <Entered> for more info): Nutritional Asmnt/Malnutrition Start: 04/02/18 14: 21 Text: Status: Complete Freq: Protocol: Document 04/02/18 14:21 LCHENG (Rec: 04/02/18 14:29 LCHENG [email or web address]) Nutritional Asmnt/Malnutrition Patient General Information Nutritional Screening Moderate Risk Diagnosis psychosis Pertinent Medical Hx/Surgical Hx gouty arthritis, HTN, hyperlipidemia, psychosis Subjective Information Per EMR, PO intake 75% of meals. Per nurse note, pt was alert, sometimes agitated. Current Diet Order/ Nutrition Support [facility] soft chopped [place] Pertinent Medications colace, iron, lasix, theragran , kcl, seroquel Pertinent Labs 03/29 BUN 26, glucose 138, A1c 6.8, Ca 8.5 Nutritional Hx/Data Height 1.8 m Height (Calculated Centimeters) 180.3 Current Weight (lbs) 77.111 kg Weight (Calculated Kilograms) 77.1 Weight (Calculated Grams) 34373.7 [place] Body Weight 172 Body Mass Index (BMI) 23.7 Weight Status Approriate GI Symptoms GI Symptoms None Last BM 04/01 x 2 Difficult in: None Skin Integrity/Comment: intact Current %PO Good (75-100%) Estimated Nutritional Goals BEE in Kcals: Using Current wt Calories/Kcals/Kg 25-30 Kcals Calculated 3650-4068 Protein: Using Current wt Protein g/k-1.2 Protein Calculated 77-92 Fluid: ml 1925-2310ml (1ml/kcal) Nutritional Problem 1. Problem Problem altered nutrition related labs Etiology endocrine dysfunction Signs/Symptoms: glucose 138, A1c 6.8 Malnutrition Alert Is there a minimum of two criteria No selected? Query Text:Check all the applicable criteria. A minimum of two criteria are recommended for diagnosis of either severe or non-severe malnutrition. Malnutrition Related to Morbid Obesity Malnutrition related to morbid obesity No Intervention/Recommendation Comments 1. Continue with current diet as ordered. Monitor glucose. Consider CCHO diet if glucose elevated. 2. Monitor PO intake, wt, labs and skin integrity 3. F/U as moderate risk in 3-5 days, 04/05-04/07 Expected Outcomes/Goals Expected Outcomes/Goals 1. PO intake to meet at least 75% of nutritional needs. 2. Wt stability, skin to remain intact, labs to approach WNL.
[2018-04-05] MEDS: Lactulose 10 Gm/15 mL 30mL UDC PO SCH (10:09)
[2018-04-05] MEDS: Ferrous Sulfate 325 MG TAB PO SCH (10:10)
[2018-04-05] MEDS: Potassium Chloride 20 mEq ER Tab PO SCH (10:10)
[2018-04-05] MEDS: Multivitamin Tab PO SCH (10:12)
--- NOTE | 2018-04-06 23:28 | Discharge Summary ---
DATE OF DISCHARGE: 04/05/2018 THE PATIENT'S AGE: 67. SEX: Male. PHYSICIAN: Dr. Smart. FINAL DIAGNOSIS/PRIMARY DIAGNOSIS: Bipolar disorder, manic episode, with psychotic features. REASON FOR HOSPITALIZATION: The patient was admitted to the hospital on a 5150 hold for being danger to others. The patient was aggressive, agitated, and threatening to kill other patients and staff in the hospital in [facility]. HOSPITAL COURSE: The patient continued to be extremely irritable and agitated. Also was in angry mood and needs to be monitored closely. The patient was given Seroquel and the dose adjusted to 150 mg twice a day and 150 mg at bedtime. Also, continue to take Zyprexa 10 mg at bedtime and also Depakote 500 mg twice a day. Gradually, the patient's affect was brighter. The patient was less irritable, less agitated. Also, interacted more with peers and others. The patient was returned to [facility]. Physical examination of the patient showed that the patient has gout, arthritis and hypertension as well as hyperlipidemia. The patient had no major medical problems while in the hospital. AFTER DISCHARGE PLANS: The patient discharged from the hospital and return to [facility] with plan for followup there. EXPECTED OUTCOME AFTER DISCHARGE: Fair if the patient continues with his outpatient treatment and follow up with discharge plans. [facility]# [id number]
--- NOTE | 2018-04-07 09:13 | Progress Notes ---
DATE: SUBJECTIVE: Chart reviewed and the patient interviewed. Also discussed the patient's condition with the staff and reviewed records and labs. The patient is still argumentative and easily agitated and easily irritable. The patient also is still suspicious and is still paranoid. He also still needs lots of redirections. The patient also is still verbally abusive to staff. On the other hand, he slept slightly better last night. ASSESSMENT: The patient is still psychotic and still agitated. TREATMENT PLAN: We will monitor his behavior and his condition closely. Also, we will increase Seroquel to 150 mg twice a day and 150 mg at bedtime and we will continue to monitor his behavior and his condition closely. [facility]# [id number]
== END 2018-04-05 16:15 | DRG 885 ==
LOC: ER 20:13 → GERO 21:25 → GERO2 21:25
PROVIDERS: ADMIT Psychiatry & Neurology Psychiatry; ATTEND Psychiatry & Neurology Psychiatry
DX: F31.2 Bipolar disorder, current episode manic severe with psychotic features (principal); F23 Brief psychotic disorder; I10 Essential (primary) hypertension; M19.90 Unspecified osteoarthritis, unspecified site; F17.210 Nicotine dependence, cigarettes, uncomplicated; E78.5 Hyperlipidemia, unspecified; D64.9 Anemia, unspecified; M10.9 Gout, unspecified; F03.90 Unspecified dementia, unspecified severity, without behavioral disturbance, psychotic disturbance, mood disturbance, and anxiety; Z83.3 Family history of diabetes mellitus
CPT/HCPCS: 36415-UA; 80053-TC; 80061-TC; 80307; 80320-TC; 80329-TC; 81003-TC; 83036-90; 84443-TC; 85025-TC; 86592-TC; 93005; J1200; J1630; J2060; J7051; Z7610

== ENCOUNTER 2018-12-25 20:42 | Inpatient (IN) | payer MEDICARE, OTHER ==
--- NOTE | 2018-12-25 21:21 | ED Physician Chart ---
ED Chief Complaint/HPI - Patient Information Date Seen:: 12/25/18 Time Seen:: 21:21 Chief Complaint:: Agitation Allergies:: Allergies Allergy/AdvReac Type Severity Reaction Status Date / Time No Known Allergies Allergy Verified 02/23/18 11:29 Family Medical History - Family Member Mother History Unknown: Yes Ethnicity: Unknown Living Status: Unknown
[2018-12-25 21:40] LABS: % BASOPHILS 1.2 % (0.0-2.0); % NEUTROPHILS 24.6 % (40.0-80.0); EOSINOPHILE ABSOLUTE 0.1 Th/cmm (0.1-0.4); MEAN CORPUSCULAR HEMOGLOBIN 27.8 pg (27.0-31.0); MONOCYTE ABSOLUTE 0.4 Th/cmm (0.3-1.0); NEUTROPHILE ABSOLUTE 0.7 Th/cmm (1.8-8.0)
[2018-12-25 21:48] LABS: % EOSINOPHILS 4.5 % (0.0-5.0); % MONOCYTES 12.7 % (2.0-10.0); HEMOGLOBIN 10.2 gm/dL (12-16); LYMPHOCYTE ABSOLUTE 1.8 Th/cmm (1.5-3.0); MEAN CELL VOLUME 84.5 fl (80-99); MEAN PLATELET VOLUME 9.1 fl; PLATELET COUNT 220 Th/cmm (150-400); RED BLOOD COUNT 3.66 Mil/cmm (3.80-5.80); RED CELL DISTRIBUTION WIDTH 15.3 % (11.5-20.0)
[2018-12-25 21:55] LABS: ALBUMIN 3.3 gm/dL (4.2-5.5); ALKALINE PHOSPHATASE 62 U/L (34-104); ANION GAP 9.4 (7.0-16.0); BILIRUBIN,TOTAL 0.3 mg/dL (0.3-1.0); BUN - UREA NITROGEN 18 mg/dL (7-25); CALCIUM SERUM 8.8 mg/dL (8.6-10.3); CARBON DIOXIDE 30.4 mEq/L (21.0-31.0); CHLORIDE 101 mEq/L (98-107); CREATININE - SERUM 0.7 mg/dL (0.7-1.3); GFR AFRICAN-AMERICAN > 60.0 ml/min (>90); GFR NON AFRICAN-AMERICAN > 60.0 ml/min; GLUCOSE 95 mg/dL (70-105); POTASSIUM SERUM 4.8 mEq/L (3.5-5.1); SGOT 27 U/L (13-39); SGPT/ALT 16 U/L (7-52); SODIUM SERUM 136 mEq/L (136-145); TOTAL PROTEIN,SERUM 6.5 gm/dL (6.0-8.3)
[2018-12-25 22:30] VITALS: BP 96/54
[2018-12-25] MEDS ORDERED: Magnesium Hydroxide (MOM) 30 mL UDC PO PRN (23:22)
[2018-12-26 02:14] LABS: CHOLESTEROL 135 mg/dL (<200); HDL -HIGH DENSITY LIPOPROTEIN 40 mg/dL (23-92); TRIGLYCERIDES 78 mg/dL (<150)
[2018-12-26] MEDS ORDERED: Magnesium Hydroxide (MOM) 30 mL UDC PO PRN (05:41)
--- NOTE | 2018-12-26 06:23 | Psychiatric Evaluation ---
DATE OF SERVICE: PSYCHIATRIC INITIAL EVALUATION AND MENTAL STATUS EXAM PATIENT AGE: 68. SEX: Male. PHYSICIAN: Dr. Smart. CHIEF COMPLAINT: 5250 hold for grave disability. HISTORY OF PRESENT ILLNESS: The patient was transferred from [facility] because of a 5250 hold, considered to be gravely disabled. The patient has also been dangerous to others. The patient has restraining orders from his for "I am scaring her." He has been anxious. The patient has also history of what seems to be bipolar disorder and has been having manic episodes. The patient said that he has been living in motels and has been going from one motel to another. He also has grandiose delusions. The patient has been talking about him worked for [employer] and has been very delusional and paranoid and he thinks that somebody wants to kill him. He does know who. He also has not been able to provide any safe plan for self-care. The patient said that he has 1 son and 2 daughters and his son is a heart surgeon in a [place], [place]. He also said that he has "many adopted children from [place]." The patient also said that he has a lot of money and he has been paying a lot of money for his daughter and other people. PAST PSYCHIATRIC HISTORY: Multiple psychiatric hospitalizations according to the patient and "He couldn't elaborate much of that." He is taking Depakote, Seroquel and Zyprexa. PAST MEDICAL HISTORY: The patient has cellulitis in his feet. Otherwise, he denies any specific medical issues. SOCIAL HISTORY: The patient is , but and restraining order against him from his . The patient has 1 son and 2 daughters. He smokes a pack of cigarette per day. He denies alcohol or drug use. ALLERGIES: No known allergies. MENTAL STATUS EXAMINATION: The patient appears his stated age. Currently, cooperative and calm, but thought processes are circumstantial with occasional flight of ideas. The patient denies any auditory or visual hallucinations. The patient is delusional and paranoid. He denies any suicidal or homicidal ideations. The patient is alert and oriented to time, place, person, and situation. Intact immediate, recent and remote memories. Poor insight and poor judgment. He seems to be of average intelligence based on his verbal ability. ASSESSMENT: PRIMARY DIAGNOSIS: Bipolar disorder, manic episode, severe, with psychotic features. TREATMENT PLAN: We will monitor the patient's behavior and condition closely. We will adjust psychotropic medications. We will work on his psychotropic medications. Also, placement issue. ESTIMATED LENGTH OF STAY: 5-7 days. THE PATIENT'S STRENGTHS AND WEAKNESSES: The patient's strength is not clear at this time except he seems to be in relatively fair health. Weakness is his poor judgment and ineffective coping. AFTER DISCHARGE PLAN: The patient to need placement and outpatient treatment to continue as an outpatient. CRITERIA FOR DISCHARGE: The patient will not be psychotic or suicidal and will stabilize psychotropic medications and will establish outpatient treatment plans. JOB# [id number]
--- NOTE | 2018-12-26 09:13 | Diagnostic Imaging Report ---
CHEST X-RAY: AP view INDICATION: Shortness of breath COMPARISON: None FINDINGS: Patient is mildly rotated. Skin folds are noted. There is no focal consolidation or pleural effusions The heart is normal in size. The osseous structures demonstrate no acute abnormalities. IMPRESSION: No focal airspace consolidation identified.
[2018-12-26] MEDS: Ferrous Sulfate 325 MG TAB PO SCH ×2 (09:16→16:41)
[2018-12-26] MEDS: Potassium Chloride 20 mEq ER Tab PO SCH (09:17)
[2018-12-26] MEDS: Multivitamin Tab PO SCH (09:17)
[2018-12-26] MEDS: Lactulose 10 Gm/15 mL 30mL UDC PO SCH (09:18)
--- NOTE | 2018-12-26 23:02 | History & Physical ---
ADMIT DATE: 12/25/2018 HISTORY OF PRESENT ILLNESS: The patient is a 68-year-old male with long history of chronic liver disease, hyperlipidemia, gouty arthritis, psychosis, admitted to [facility] under Dr. Smart's service for the treatment. The patient denies any chest pain, shortness of breath, nausea, vomiting, fever, chills. PAST MEDICAL HISTORY: Significant for hyperlipidemia, gouty arthritis, chronic liver disease and psychosis. PAST SURGICAL HISTORY: No recent surgery. ALLERGIES: None. MEDICATIONS: Follow admission reconciliation. SOCIAL HISTORY: No smoking, no drugs. FAMILY HISTORY: Noncontributory. REVIEW OF SYSTEMS: RENAL SYSTEM: No history of chronic renal disorder. CARDIOVASCULAR SYSTEM: No coronary artery disease. ENDOCRINE SYSTEM: No diabetes or thyroid problem. GASTROINTESTINAL SYSTEM: Has history of chronic liver disease. HEMATOLOGIC SYSTEM: Has history of chronic anemia. No bleeding tendency. RESPIRATORY SYSTEM: No asthma. GENITOURINARY SYSTEM: No dysuria or hematuria. PHYSICAL EXAMINATION: GENERAL: Awake, alert. VITAL SIGNS: Temperature is 98.2, heart rate 69, blood pressure 118/68. HEENT: Normocephalic. Pupils reacting to light and accommodation. Sclerae clear. NECK: Supple. Negative for lymphadenopathy, JVD or bruit. CHEST: Entry of air bilaterally normal. No rales, rhonchi or wheezing. HEART: S1, S2 normal. No murmur, gallop, rhythm. ABDOMEN: Soft, bowel sounds positive. EXTREMITIES: No edema. NEUROLOGIC: Awake, alert, no focal muscle deficit. LABORATORY DATA: White blood cells 3, hemoglobin 10.2, hematocrit 31, and platelet is 220. Sodium 136, potassium 4.8, BUN 18, creatinine 0.7, troponin 0.26. ASSESSMENT: 1. Chronic liver disease. 2. Gouty arthritis. 3. Anemia. 4. Hyperlipidemia. 5. Psychosis. PLAN: The patient admitted to the hospital under Dr. Smart's service. Medical problem addressed during hospitalization is psychosis. Medical problems addressed at discharge chronic arthritis, chronic liver disease. The patient is medically stable for activity. Thank you Dr. Smart for asking me to see your patient. The patient will follow up with primary physician upon discharge. [facility]# [id number]
[2018-12-27] MEDS: Multivitamin Tab PO SCH (09:47)
[2018-12-27] MEDS: Ferrous Sulfate 325 MG TAB PO SCH ×2 (09:47→17:15)
[2018-12-27] MEDS: Lactulose 10 Gm/15 mL 30mL UDC PO SCH (09:47)
[2018-12-27] MEDS: Potassium Chloride 20 mEq ER Tab PO SCH (09:48)
--- NOTE | 2018-12-27 14:49 | Progress Notes ---
DATE: 12/27/2018 Case was discussed with staff of the patient, reviewed records. Covering for Dr. Smart. A 68-year-old male who was admitted on 12/25/2018. He is on a hold for grave disability, transferred from [facility] because of being on a 5250 hold. He was considered gravely disabled and danger to others. The patient has restraining order from his . He said that he has been anxious. The patient also has a history of what seems to have bipolar disorder, he has been having manic episode. He has been living in a motel, has been going from 1 motel to the other grandiose delusional. He is talking about working for the [employer] and has been very delusional, paranoid and thinks that someone wants to kill him, he does not know who. The patient with multiple prior admissions. The patient reportedly has 1 son and 2 daughters. His son is a heart surgeon in the city of [place], [place]. He has many adopted children in [place]. He has a lot of money, hence he is paying a lot of money to other people. The patient also has cellulitis of his foot. He has been seen by Dr. Martinez for his medical condition. Dr. Smart by the staff. The patient will have medications, Depakote 500 mg twice a day. He is on iron, Lasix, lactulose, multivitamins, Zyprexa 10 mg daily and 10 mg at bedtime. He is also on Seroquel 50 mg at bedtime, simvastatin. No side effects with the medication, no sedation, no extrapyramidal symptoms. We will continue to work with the patient in group therapy, milieu therapy, and adjust the medication as needed. JOB# [id number] ANDREA
--- NOTE | 2018-12-27 18:29 | Internal Medicine Prog Note ---
Internal Medicine Subjective - Subjective Service Date: 12/27/18 Patient seen and examined:: with staff (HE IS DOING WELL) Patient is:: awake, verbal, in bed, talking, confused Per staff patient has:: no adverse event Internal Medicine Objective - Results Result Diagrams: 12/25/18 21:35 12/25/18 21:35 Recent Labs: Laboratory Last Values WBC 3.0 Th/cmm (4.8-10.8) L 12/25/18 21:35 RBC 3.66 Mil/cmm (3.80-5.80) L 12/25/18 21:35 Hgb 10.2 gm/dL (12-16) L 12/25/18 21:35 Hct 31.0 % (41.0-60) L 12/25/18 21:35 MCV 84.5 fl (80-99) 12/25/18 21:35 MCH 27.8 pg (27.0-31.0) 12/25/18 21:35 MCHC Differential 33.0 pg (28.0-36.0) 12/25/18 21:35 RDW 15.3 % (11.5-20.0) 12/25/18 21:35 Plt Count 220 Th/cmm (150-400) 12/25/18 21:35 MPV 9.1 fl 12/25/18 21:35 Neutrophils % 24.6 % (40.0-80.0) L 12/25/18 21:35 Lymphocytes % 57.0 % (20.0-50.0) H 12/25/18 21:35 Monocytes % 12.7 % (2.0-10.0) H 12/25/18 21:35 Eosinophils % 4.5 % (0.0-5.0) 12/25/18 21:35 Basophils % 1.2 % (0.0-2.0) 12/25/18 21:35 Sodium 136 mEq/L (136-145) 12/25/18 21:35 Potassium 4.8 mEq/L (3.5-5.1) 12/25/18 21:35 Chloride 101 mEq/L (98-107) 12/25/18 21:35 Carbon Dioxide 30.4 mEq/L (21.0-31.0) 12/25/18 21:35 Anion Gap 9.4 (7.0-16.0) 12/25/18 21:35 BUN 18 mg/dL (7-25) 12/25/18 21:35 Creatinine 0.7 mg/dL (0.7-1.3) 12/25/18 21:35 Est GFR ( Amer) > 60.0 ml/min (>90) 12/25/18 21:35 Est GFR (Non-Af Amer) > 60.0 ml/min 12/25/18 21:35 BUN/Creatinine Ratio 25.7 12/25/18 21:35 Glucose 95 mg/dL (70-105) 12/25/18 21:35 POC Glucose 80 MG/DL (70 - 105) 12/25/18 22:34 Whole Bld Lactic Acid 0.86 mmol/L (0.60-1.99) 12/25/18 21:25 Calcium 8.8 mg/dL (8.6-10.3) 12/25/18 21:35 Total Bilirubin 0.3 mg/dL (0.3-1.0) 12/25/18 21:35 AST 27 U/L (13-39) 12/25/18 21:35 ALT 16 U/L (7-52) 12/25/18 21:35 Alkaline Phosphatase 62 U/L (34-104) 12/25/18 21:35 Troponin I 0.04 ng/mL (0.01-0.05) 12/27/18 07:44 B-Natriuretic Peptide 28.6 pg/mL (5.0-100.0) 12/25/18 21:35 Total Protein 6.5 gm/dL (6.0-8.3) 12/25/18 21:35 Albumin 3.3 gm/dL (4.2-5.5) L 12/25/18 21:35 Globulin 3.2 gm/dL 12/25/18 21:35 Albumin/Globulin Ratio 1.0 (1.0-1.8) 12/25/18 21:35 Triglycerides 78 mg/dL (<150) 12/25/18 21:35 Cholesterol 135 mg/dL (<200) 12/25/18 21:35 LDL Cholesterol Direct 86 mg/dL (75-193) 12/25/18 21:35 HDL Cholesterol 40 mg/dL (23-92) 12/25/18 21:35 TSH 1.02 uIU/ml (0.34-5.60) 12/25/18 21:35 RPR NONREACTIVE (NONREACTIVE) 12/25/18 21:35 - Physical Exam Vitals and I&O: Vital Signs Temp 98.6 F 12/27/18 14:00 Pulse 67 12/27/18 14:00 Resp 18 12/27/18 14:00 BP 118/52 12/27/18 14:00 Pulse Ox 99 12/27/18 06:40 Intake & Output 12/26/18 12/27/18 12/27/18 18:59 06:59 18:59 Intake Total 1200 120 Output Total 0 Balance 1200 120 Weight (lbs) 77.111 kg Intake: Oral 1080 120 Other 120 Output: Stool 0 Other: # Voids 5 3 Stool Characteristics Soft Soft Soft Formed Formed Formed Active Medications: Current Medications Acetaminophen (Tylenol) 650 mg PO Q4HR PRN PRN Reason: Mild Pain / Temp above 100 Stop: 02/23/19 23:21 Allopurinol (Zyloprim) 100 mg PO DAILY [facility] Stop: 02/24/19 08:59 Last Admin: 12/27/18 09:46 Dose: Not Given Colchicine (Colcrys) 0.6 mg PO DAILY [facility] Stop: 02/24/19 08:59 Last Admin: 12/27/18 09:46 Dose: Not Given Divalproex Sodium (Depakote Dr) 500 mg PO BID [facility]; Protocol Stop: 02/24/19 08:59 Last Admin: 12/27/18 17:15 Dose: Not Given Docusate Sodium (Colace) 250 mg PO DAILY [facility] Stop: 02/24/19 08:59 Last Admin: 12/27/18 09:46 Dose: Not Given Ferrous Sulfate (Iron) 325 mg PO BID [facility] Stop: 02/24/19 08:59 Last Admin: 12/27/18 17:15 Dose: Not Given Furosemide (Lasix) 40 mg PO DAILY [facility] Stop: 02/24/19 08:59 Last Admin: 12/27/18 09:47 Dose: Not Given Lactulose (Cephulac) 10 gm PO DAILY [facility] Stop: 02/24/19 08:59 Last Admin: 12/27/18 09:47 Dose: Not Given Lorazepam (Ativan) 0.5 mg PO Q4HR PRN; Protocol PRN Reason: Anxiety Stop: 01/24/19 23:21 Last Admin: 12/27/18 12:23 Dose: 0.5 mg Magnesium Hydroxide (Milk Of Magnesia) 30 ml PO HS PRN PRN Reason: Constipation Multivitamins/Vitamin C (Theragran) 1 tab PO DAILY [facility] Stop: 02/24/19 08:59 Last Admin: 12/27/18 09:47 Dose: Not Given Olanzapine (Zyprexa) 10 mg PO DAILY [facility]; Protocol Stop: 02/24/19 08:59 Last Admin: 12/27/18 09:47 Dose: Not Given Olanzapine (Zyprexa) 10 mg PO HS [facility]; Protocol Stop: 02/24/19 20:59 Last Admin: 12/26/18 20:28 Dose: Not Given Potassium Chloride (Klor-Con) 20 meq PO DAILY [facility] Stop: 02/24/19 08:59 Last Admin: 12/27/18 09:48 Dose: Not Given Prednisone (Deltasone) 20 mg PO BID [facility] Stop: 02/24/19 08:59 Last Admin: 12/27/18 17:15 Dose: Not Given Quetiapine Fumarate 100 mg/ (Quetiapine Fumarate 50 mg) 150 mg PO HS [facility] Stop: 02/24/19 20:59 Last Admin: 12/26/18 20:28 Dose: Not Given Simvastatin (Zocor) 40 mg PO HS [facility]; Protocol Stop: 02/24/19 20:59 Last Admin: 12/26/18 20:28 Dose: Not Given Zolpidem Tartrate (Ambien) 5 mg PO HS PRN PRN Reason: Insomnia Stop: 02/23/19 23:21 Zolpidem Tartrate (Ambien) 5 mg PO HS PRN PRN Reason: Insomnia Stop: 02/24/19 22:32 General: demented HEENT: NC/AT, PERRLA, EOMI, anicteric sclerae, throat clear Neck: Supple, No JVD, No thyromegaly, +2 carotid pulse wo bruit, No LAD, + JVD Lungs: CTAB Cardiovascular: RRR, Normal S1, Normal S2, without murmur Abdomen: soft, non-tender, non-distended Extremities: clear Neurological: no change Internal Medicine Assmt/Plan - Assessment Assessment: 1.CHRONIC LIVER DISEASE. 2.GOUTY ARTHRITIS. 3.ANEMIA. 4.HYPERLIPIDEMIA. 5.PSYCHOSIS. - Plan Plan: CONTINUE ON CURRENT MEDICATION AND DIET.
[2018-12-28] MEDS: Ferrous Sulfate 325 MG TAB PO SCH ×3 (08:36→16:14)
[2018-12-28] MEDS: Potassium Chloride 20 mEq ER Tab PO SCH ×2 (08:36→16:13)
[2018-12-28] MEDS: Multivitamin Tab PO SCH ×2 (08:36→16:13)
--- NOTE | 2018-12-28 11:56 | Internal Medicine Prog Note ---
Internal Medicine Subjective - Subjective Service Date: 12/28/18 Patient seen and examined:: without staff (HE IS DOING BETTER) Patient is:: awake, verbal, in bed, talking, confused Per staff patient has:: no adverse event Internal Medicine Objective - Results Result Diagrams: 12/25/18 21:35 12/25/18 21:35 Recent Labs: Laboratory Last Values WBC 3.0 Th/cmm (4.8-10.8) L 12/25/18 21:35 RBC 3.66 Mil/cmm (3.80-5.80) L 12/25/18 21:35 Hgb 10.2 gm/dL (12-16) L 12/25/18 21:35 Hct 31.0 % (41.0-60) L 12/25/18 21:35 MCV 84.5 fl (80-99) 12/25/18 21:35 MCH 27.8 pg (27.0-31.0) 12/25/18 21:35 MCHC Differential 33.0 pg (28.0-36.0) 12/25/18 21:35 RDW 15.3 % (11.5-20.0) 12/25/18 21:35 Plt Count 220 Th/cmm (150-400) 12/25/18 21:35 MPV 9.1 fl 12/25/18 21:35 Neutrophils % 24.6 % (40.0-80.0) L 12/25/18 21:35 Lymphocytes % 57.0 % (20.0-50.0) H 12/25/18 21:35 Monocytes % 12.7 % (2.0-10.0) H 12/25/18 21:35 Eosinophils % 4.5 % (0.0-5.0) 12/25/18 21:35 Basophils % 1.2 % (0.0-2.0) 12/25/18 21:35 Sodium 136 mEq/L (136-145) 12/25/18 21:35 Potassium 4.8 mEq/L (3.5-5.1) 12/25/18 21:35 Chloride 101 mEq/L (98-107) 12/25/18 21:35 Carbon Dioxide 30.4 mEq/L (21.0-31.0) 12/25/18 21:35 Anion Gap 9.4 (7.0-16.0) 12/25/18 21:35 BUN 18 mg/dL (7-25) 12/25/18 21:35 Creatinine 0.7 mg/dL (0.7-1.3) 12/25/18 21:35 Est GFR ( Amer) > 60.0 ml/min (>90) 12/25/18 21:35 Est GFR (Non-Af Amer) > 60.0 ml/min 12/25/18 21:35 BUN/Creatinine Ratio 25.7 12/25/18 21:35 Glucose 95 mg/dL (70-105) 12/25/18 21:35 POC Glucose 80 MG/DL (70 - 105) 12/25/18 22:34 Whole Bld Lactic Acid 0.86 mmol/L (0.60-1.99) 12/25/18 21:25 Calcium 8.8 mg/dL (8.6-10.3) 12/25/18 21:35 Total Bilirubin 0.3 mg/dL (0.3-1.0) 12/25/18 21:35 AST 27 U/L (13-39) 12/25/18 21:35 ALT 16 U/L (7-52) 12/25/18 21:35 Alkaline Phosphatase 62 U/L (34-104) 12/25/18 21:35 Troponin I 0.04 ng/mL (0.01-0.05) 12/27/18 07:44 B-Natriuretic Peptide 28.6 pg/mL (5.0-100.0) 12/25/18 21:35 Total Protein 6.5 gm/dL (6.0-8.3) 12/25/18 21:35 Albumin 3.3 gm/dL (4.2-5.5) L 12/25/18 21:35 Globulin 3.2 gm/dL 12/25/18 21:35 Albumin/Globulin Ratio 1.0 (1.0-1.8) 12/25/18 21:35 Triglycerides 78 mg/dL (<150) 12/25/18 21:35 Cholesterol 135 mg/dL (<200) 12/25/18 21:35 LDL Cholesterol Direct 86 mg/dL (75-193) 12/25/18 21:35 HDL Cholesterol 40 mg/dL (23-92) 12/25/18 21:35 TSH 1.02 uIU/ml (0.34-5.60) 12/25/18 21:35 RPR NONREACTIVE (NONREACTIVE) 12/25/18 21:35 - Physical Exam Vitals and I&O: Vital Signs Temp 97.3 F 12/28/18 06:29 Pulse 69 12/28/18 06:29 Resp 20 12/28/18 06:29 BP 112/66 12/28/18 08:36 Pulse Ox 98 12/28/18 06:29 Intake & Output 12/27/18 12/28/18 12/28/18 18:59 06:59 18:59 Intake Total 1320 120 Balance 1320 120 Intake: Oral 1080 120 Other 240 Other: # Voids 4 3 # Bowel Movements 0 Stool Characteristics Soft Soft Formed Formed Active Medications: Current Medications Acetaminophen (Tylenol) 650 mg PO Q4HR PRN PRN Reason: Mild Pain / Temp above 100 Stop: 02/23/19 23:21 Allopurinol (Zyloprim) 100 mg PO DAILY [facility] Stop: 02/24/19 08:59 Last Admin: 12/28/18 08:36 Dose: 100 mg Colchicine (Colcrys) 0.6 mg PO DAILY [facility] Stop: 02/24/19 08:59 Last Admin: 12/28/18 08:35 Dose: 0.6 mg Divalproex Sodium (Depakote Dr) 500 mg PO BID [facility]; Protocol Stop: 02/24/19 08:59 Last Admin: 12/28/18 08:35 Dose: 500 mg Docusate Sodium (Colace) 250 mg PO DAILY [facility] Stop: 02/24/19 08:59 Last Admin: 12/28/18 08:36 Dose: 250 mg Ferrous Sulfate (Iron) 325 mg PO BID [facility] Stop: 02/24/19 08:59 Last Admin: 12/28/18 08:36 Dose: 325 mg Furosemide (Lasix) 40 mg PO DAILY [facility] Stop: 02/24/19 08:59 Last Admin: 12/28/18 08:36 Dose: 40 mg Lactulose (Cephulac) 10 gm PO DAILY [facility] Stop: 02/24/19 08:59 Last Admin: 12/27/18 09:47 Dose: Not Given Lorazepam (Ativan) 0.5 mg PO Q4HR PRN; Protocol PRN Reason: Anxiety Stop: 01/24/19 23:21 Last Admin: 12/28/18 07:51 Dose: 0.5 mg Magnesium Hydroxide (Milk Of Magnesia) 30 ml PO HS PRN PRN Reason: Constipation Multivitamins/Vitamin C (Theragran) 1 tab PO DAILY [facility] Stop: 02/24/19 08:59 Last Admin: 12/28/18 08:36 Dose: 1 tab Olanzapine (Zyprexa) 10 mg PO DAILY [facility]; Protocol Stop: 02/24/19 08:59 Last Admin: 12/28/18 08:35 Dose: 10 mg Olanzapine (Zyprexa) 10 mg PO HS [facility]; Protocol Stop: 02/24/19 20:59 Last Admin: 12/27/18 21:17 Dose: 10 mg Potassium Chloride (Klor-Con) 20 meq PO DAILY [facility] Stop: 02/24/19 08:59 Last Admin: 12/28/18 08:36 Dose: 20 meq Prednisone (Deltasone) 20 mg PO BID [facility] Stop: 02/24/19 08:59 Last Admin: 12/28/18 08:36 Dose: 20 mg Quetiapine Fumarate 100 mg/ (Quetiapine Fumarate 50 mg) 150 mg PO HS [facility] Stop: 02/24/19 20:59 Last Admin: 12/27/18 21:18 Dose: 150 mg Simvastatin (Zocor) 40 mg PO HS [facility]; Protocol Stop: 02/24/19 20:59 Last Admin: 12/27/18 21:18 Dose: 40 mg Zolpidem Tartrate (Ambien) 5 mg PO HS PRN PRN Reason: Insomnia Stop: 02/23/19 23:21 Zolpidem Tartrate (Ambien) 5 mg PO HS PRN PRN Reason: Insomnia Stop: 02/24/19 22:32 General: demented HEENT: NC/AT, PERRLA, EOMI, anicteric sclerae, throat clear Neck: Supple, No JVD, No thyromegaly, +2 carotid pulse wo bruit, No LAD, + JVD Lungs: CTAB Cardiovascular: RRR, Normal S1, Normal S2, without murmur Abdomen: soft, non-tender, non-distended Extremities: clear Neurological: no change Internal Medicine Assmt/Plan - Assessment Assessment: 1.CHRONIC LIVER DISEASE. 2.GOUTY ARTHRITIS. 3.ANEMIA. 4.HYPERLIPIDEMIA. 5.PSYCHOSIS. - Plan Plan: CONTINUE ON CURRENT MEDICATION AND DIET.
[2018-12-28] MEDS: Lactulose 10 Gm/15 mL 30mL UDC PO SCH (16:11)
--- NOTE | 2018-12-29 02:34 | Progress Notes ---
DATE: 12/28/2018 Case was discussed with staff of the patient, reviewed records. The patient continues to be irritable, continues to have poor insight, grandiose, continues to be unable to make safe plan for self-care, looking disheveled, continues to be threatening at times, continues to have poor insight, sleeping better, eating better, has been compliant with the medication with no side effects, no sedation, no nausea, no extrapyramidal symptoms. He is on Zyprexa 10 mg twice a day, I will be increasing the bedtime dose to 15 mg. No side effects to the medication, no sedation, no nausea, no extrapyramidal symptoms. I will continue to work with the patient in group therapy, milieu therapy, adjust medications as needed. JOB# [id number]
[2018-12-29] MEDS: Potassium Chloride 20 mEq ER Tab PO SCH (09:00)
[2018-12-29] MEDS: Ferrous Sulfate 325 MG TAB PO SCH ×2 (09:00→18:58)
[2018-12-29] MEDS: Multivitamin Tab PO SCH (09:00)
[2018-12-29] MEDS: Lactulose 10 Gm/15 mL 30mL UDC PO SCH (09:00)
--- NOTE | 2018-12-29 18:22 | Progress Notes ---
DATE: 12/29/2018 SUBJECTIVE: The patient transferred from [facility]. Concerns for grave disability, restraining order from his because he is apparently scaring her, very anxious, history of bipolar. Dr. Sutton is seeing the patient, noting that he continues to be grandiose, poor insight, ongoing behavioral disturbances. Nursing staff noting he remains pretty forgetful, easily agitated. On [id number], he does not want to talk to me whatsoever. Sleeping, arousable, but does not want to engage at all. According to collateral, he has apparently been homeless for the last couple of months, remains very confused, gets upset with staff, believing the medications poisoned. ASSESSMENT: The patient remains unruly, ongoing psychotic symptoms. PLAN: We will continue to monitor, titrate and adjust medications. JOB# [id number]
--- NOTE | 2018-12-29 19:08 | General Progress Note ---
Subjective - Review of Systems Service Date: 12/29/18 Subjective: resting comfortably no distress Objective - Results Result Diagrams: 12/25/18 21:35 12/25/18 21:35 Recent Labs: Laboratory Last Values WBC 3.0 Th/cmm (4.8-10.8) L 12/25/18 21:35 RBC 3.66 Mil/cmm (3.80-5.80) L 12/25/18 21:35 Hgb 10.2 gm/dL (12-16) L 12/25/18 21:35 Hct 31.0 % (41.0-60) L 12/25/18 21:35 MCV 84.5 fl (80-99) 12/25/18 21:35 MCH 27.8 pg (27.0-31.0) 12/25/18 21:35 MCHC Differential 33.0 pg (28.0-36.0) 12/25/18 21:35 RDW 15.3 % (11.5-20.0) 12/25/18 21:35 Plt Count 220 Th/cmm (150-400) 12/25/18 21:35 MPV 9.1 fl 12/25/18 21:35 Neutrophils % 24.6 % (40.0-80.0) L 12/25/18 21:35 Lymphocytes % 57.0 % (20.0-50.0) H 12/25/18 21:35 Monocytes % 12.7 % (2.0-10.0) H 12/25/18 21:35 Eosinophils % 4.5 % (0.0-5.0) 12/25/18 21:35 Basophils % 1.2 % (0.0-2.0) 12/25/18 21:35 Sodium 136 mEq/L (136-145) 12/25/18 21:35 Potassium 4.8 mEq/L (3.5-5.1) 12/25/18 21:35 Chloride 101 mEq/L (98-107) 12/25/18 21:35 Carbon Dioxide 30.4 mEq/L (21.0-31.0) 12/25/18 21:35 Anion Gap 9.4 (7.0-16.0) 12/25/18 21:35 BUN 18 mg/dL (7-25) 12/25/18 21:35 Creatinine 0.7 mg/dL (0.7-1.3) 12/25/18 21:35 Est GFR ( Amer) > 60.0 ml/min (>90) 12/25/18 21:35 Est GFR (Non-Af Amer) > 60.0 ml/min 12/25/18 21:35 BUN/Creatinine Ratio 25.7 12/25/18 21:35 Glucose 95 mg/dL (70-105) 12/25/18 21:35 POC Glucose 80 MG/DL (70 - 105) 12/25/18 22:34 Whole Bld Lactic Acid 0.86 mmol/L (0.60-1.99) 12/25/18 21:25 Calcium 8.8 mg/dL (8.6-10.3) 12/25/18 21:35 Total Bilirubin 0.3 mg/dL (0.3-1.0) 12/25/18 21:35 AST 27 U/L (13-39) 12/25/18 21:35 ALT 16 U/L (7-52) 12/25/18 21:35 Alkaline Phosphatase 62 U/L (34-104) 12/25/18 21:35 Troponin I 0.04 ng/mL (0.01-0.05) 12/27/18 07:44 B-Natriuretic Peptide 28.6 pg/mL (5.0-100.0) 12/25/18 21:35 Total Protein 6.5 gm/dL (6.0-8.3) 12/25/18 21:35 Albumin 3.3 gm/dL (4.2-5.5) L 12/25/18 21:35 Globulin 3.2 gm/dL 12/25/18 21:35 Albumin/Globulin Ratio 1.0 (1.0-1.8) 12/25/18 21:35 Triglycerides 78 mg/dL (<150) 12/25/18 21:35 Cholesterol 135 mg/dL (<200) 12/25/18 21:35 LDL Cholesterol Direct 86 mg/dL (75-193) 12/25/18 21:35 HDL Cholesterol 40 mg/dL (23-92) 12/25/18 21:35 TSH 1.02 uIU/ml (0.34-5.60) 12/25/18 21:35 RPR NONREACTIVE (NONREACTIVE) 12/25/18 21:35 - Physical Exam Vitals and I&O: Vital Signs Temp 97.4 F 12/29/18 14:00 Pulse 77 12/29/18 14:00 Resp 18 12/29/18 14:00 BP 112/73 12/29/18 18:57 Pulse Ox 97 12/29/18 14:00 Intake & Output 12/29/18 12/29/18 12/30/18 06:59 18:59 06:59 Intake Total 240 1000 Balance 240 1000 Intake: Oral 240 1000 Other: # Voids 3 4 # Bowel Movements 0 1 Stool Characteristics Soft Soft Formed Formed Active Medications: Current Medications Acetaminophen (Tylenol) 650 mg PO Q4HR PRN PRN Reason: Mild Pain / Temp above 100 Stop: 02/23/19 23:21 Allopurinol (Zyloprim) 100 mg PO DAILY [facility] Stop: 02/24/19 08:59 Last Admin: 12/29/18 09:00 Dose: Not Given Colchicine (Colcrys) 0.6 mg PO DAILY [facility] Stop: 02/24/19 08:59 Last Admin: 12/29/18 09:00 Dose: Not Given Divalproex Sodium (Depakote Dr) 500 mg PO BID [facility]; Protocol Stop: 02/24/19 08:59 Last Admin: 12/29/18 16:28 Dose: 500 mg Docusate Sodium (Colace) 250 mg PO DAILY [facility] Stop: 02/24/19 08:59 Last Admin: 12/29/18 18:59 Dose: Not Given Ferrous Sulfate (Iron) 325 mg PO BID [facility] Stop: 02/24/19 08:59 Last Admin: 12/29/18 18:58 Dose: Not Given Furosemide (Lasix) 40 mg PO DAILY [facility] Stop: 02/24/19 08:59 Last Admin: 12/29/18 18:57 Dose: Not Given Lactulose (Cephulac) 10 gm PO DAILY [facility] Stop: 02/24/19 08:59 Last Admin: 12/29/18 09:00 Dose: Not Given Lorazepam (Ativan) 0.5 mg PO Q4HR PRN; Protocol PRN Reason: Anxiety Stop: 01/24/19 23:21 Last Admin: 12/29/18 16:28 Dose: 0.5 mg Magnesium Hydroxide (Milk Of Magnesia) 30 ml PO HS PRN PRN Reason: Constipation Multivitamins/Vitamin C (Theragran) 1 tab PO DAILY [facility] Stop: 02/24/19 08:59 Last Admin: 12/29/18 09:00 Dose: Not Given Olanzapine (Zyprexa) 10 mg PO DAILY [facility]; Protocol Stop: 02/24/19 08:59 Last Admin: 12/29/18 08:37 Dose: 10 mg Olanzapine (Zyprexa) 15 mg PO HS [facility]; Protocol Stop: 02/26/19 20:59 Last Admin: 12/28/18 22:00 Dose: 15 mg Potassium Chloride (Klor-Con) 20 meq PO DAILY [facility] Stop: 02/24/19 08:59 Last Admin: 12/29/18 09:00 Dose: Not Given Prednisone (Deltasone) 20 mg PO BID [facility] Stop: 02/24/19 08:59 Last Admin: 12/29/18 18:56 Dose: Not Given Quetiapine Fumarate 100 mg/ (Quetiapine Fumarate 50 mg) 150 mg PO HS [facility] Stop: 02/24/19 20:59 Last Admin: 12/28/18 22:00 Dose: 150 mg Simvastatin (Zocor) 40 mg PO HS [facility]; Protocol Stop: 02/24/19 20:59 Last Admin: 12/28/18 22:00 Dose: 40 mg Zolpidem Tartrate (Ambien) 5 mg PO HS PRN PRN Reason: Insomnia Stop: 02/23/19 23:21 Zolpidem Tartrate (Ambien) 5 mg PO HS PRN PRN Reason: Insomnia Stop: 02/24/19 22:32 General: No acute distress HEENT: Atraumatic Neck: Supple Cardiovascular: Regular rate, Normal S1, Normal S2 Lungs: Clear to auscultation Abdomen: Bowel sounds, Soft Assessment/Plan - Assessment Assessment: 1.CHRONIC LIVER DISEASE. 2.GOUTY ARTHRITIS. 3.ANEMIA. 4.HYPERLIPIDEMIA. 5.PSYCHOSIS. - Plan Plan: continue current treatment
[2018-12-30] MEDS: Ferrous Sulfate 325 MG TAB PO SCH ×2 (09:00→17:58)
[2018-12-30] MEDS: Multivitamin Tab PO SCH (09:00)
[2018-12-30] MEDS: Potassium Chloride 20 mEq ER Tab PO SCH (09:00)
[2018-12-30] MEDS: Lactulose 10 Gm/15 mL 30mL UDC PO SCH (09:00)
--- NOTE | 2018-12-30 16:21 | General Progress Note ---
Subjective - Review of Systems Service Date: 12/30/18 Subjective: resting comfortably no distress Objective - Results Result Diagrams: 12/25/18 21:35 12/25/18 21:35 Recent Labs: Laboratory Last Values WBC 3.0 Th/cmm (4.8-10.8) L 12/25/18 21:35 RBC 3.66 Mil/cmm (3.80-5.80) L 12/25/18 21:35 Hgb 10.2 gm/dL (12-16) L 12/25/18 21:35 Hct 31.0 % (41.0-60) L 12/25/18 21:35 MCV 84.5 fl (80-99) 12/25/18 21:35 MCH 27.8 pg (27.0-31.0) 12/25/18 21:35 MCHC Differential 33.0 pg (28.0-36.0) 12/25/18 21:35 RDW 15.3 % (11.5-20.0) 12/25/18 21:35 Plt Count 220 Th/cmm (150-400) 12/25/18 21:35 MPV 9.1 fl 12/25/18 21:35 Neutrophils % 24.6 % (40.0-80.0) L 12/25/18 21:35 Lymphocytes % 57.0 % (20.0-50.0) H 12/25/18 21:35 Monocytes % 12.7 % (2.0-10.0) H 12/25/18 21:35 Eosinophils % 4.5 % (0.0-5.0) 12/25/18 21:35 Basophils % 1.2 % (0.0-2.0) 12/25/18 21:35 Sodium 136 mEq/L (136-145) 12/25/18 21:35 Potassium 4.8 mEq/L (3.5-5.1) 12/25/18 21:35 Chloride 101 mEq/L (98-107) 12/25/18 21:35 Carbon Dioxide 30.4 mEq/L (21.0-31.0) 12/25/18 21:35 Anion Gap 9.4 (7.0-16.0) 12/25/18 21:35 BUN 18 mg/dL (7-25) 12/25/18 21:35 Creatinine 0.7 mg/dL (0.7-1.3) 12/25/18 21:35 Est GFR ( Amer) > 60.0 ml/min (>90) 12/25/18 21:35 Est GFR (Non-Af Amer) > 60.0 ml/min 12/25/18 21:35 BUN/Creatinine Ratio 25.7 12/25/18 21:35 Glucose 95 mg/dL (70-105) 12/25/18 21:35 POC Glucose 80 MG/DL (70 - 105) 12/25/18 22:34 Whole Bld Lactic Acid 0.86 mmol/L (0.60-1.99) 12/25/18 21:25 Calcium 8.8 mg/dL (8.6-10.3) 12/25/18 21:35 Total Bilirubin 0.3 mg/dL (0.3-1.0) 12/25/18 21:35 AST 27 U/L (13-39) 12/25/18 21:35 ALT 16 U/L (7-52) 12/25/18 21:35 Alkaline Phosphatase 62 U/L (34-104) 12/25/18 21:35 Troponin I 0.04 ng/mL (0.01-0.05) 12/27/18 07:44 B-Natriuretic Peptide 28.6 pg/mL (5.0-100.0) 12/25/18 21:35 Total Protein 6.5 gm/dL (6.0-8.3) 12/25/18 21:35 Albumin 3.3 gm/dL (4.2-5.5) L 12/25/18 21:35 Globulin 3.2 gm/dL 12/25/18 21:35 Albumin/Globulin Ratio 1.0 (1.0-1.8) 12/25/18 21:35 Triglycerides 78 mg/dL (<150) 12/25/18 21:35 Cholesterol 135 mg/dL (<200) 12/25/18 21:35 LDL Cholesterol Direct 86 mg/dL (75-193) 12/25/18 21:35 HDL Cholesterol 40 mg/dL (23-92) 12/25/18 21:35 TSH 1.02 uIU/ml (0.34-5.60) 04/23/19 21:35 RPR NONREACTIVE (NONREACTIVE) 12/25/18 21:35 - Physical Exam Vitals and I&O: Vital Signs Temp 98.0 F 12/30/18 15:52 Pulse 85 12/30/18 15:52 Resp 20 12/30/18 15:52 BP 122/65 12/30/18 15:52 Pulse Ox 98 12/30/18 15:52 Intake & Output 12/29/18 12/30/18 12/30/18 18:59 06:59 18:59 Intake Total 1000 240 Balance 1000 240 Intake: Oral 1000 240 Other: # Voids 4 2 # Bowel Movements 1 0 Stool Characteristics Soft Formed Active Medications: Current Medications Acetaminophen (Tylenol) 650 mg PO Q4HR PRN PRN Reason: Mild Pain / Temp above 100 Stop: 02/23/19 23:21 Allopurinol (Zyloprim) 100 mg PO DAILY [facility] Stop: 02/24/19 08:59 Last Admin: 12/29/18 09:00 Dose: Not Given Colchicine (Colcrys) 0.6 mg PO DAILY [facility] Stop: 02/24/19 08:59 Last Admin: 12/29/18 09:00 Dose: Not Given Divalproex Sodium (Depakote Dr) 500 mg PO BID [facility]; Protocol Stop: 02/24/19 08:59 Last Admin: 12/29/18 16:28 Dose: 500 mg Docusate Sodium (Colace) 250 mg PO DAILY [facility] Stop: 02/24/19 08:59 Last Admin: 12/29/18 18:59 Dose: Not Given Ferrous Sulfate (Iron) 325 mg PO BID [facility] Stop: 02/24/19 08:59 Last Admin: 12/29/18 18:58 Dose: Not Given Furosemide (Lasix) 40 mg PO DAILY [facility] Stop: 02/24/19 08:59 Last Admin: 12/29/18 18:57 Dose: Not Given Lactulose (Cephulac) 10 gm PO DAILY [facility] Stop: 02/24/19 08:59 Last Admin: 12/29/18 09:00 Dose: Not Given Lorazepam (Ativan) 0.5 mg PO Q4HR PRN; Protocol PRN Reason: Anxiety Stop: 01/24/19 23:21 Last Admin: 12/29/18 16:28 Dose: 0.5 mg Magnesium Hydroxide (Milk Of Magnesia) 30 ml PO HS PRN PRN Reason: Constipation Multivitamins/Vitamin C (Theragran) 1 tab PO DAILY [facility] Stop: 02/24/19 08:59 Last Admin: 12/29/18 09:00 Dose: Not Given Olanzapine (Zyprexa) 10 mg PO DAILY [facility]; Protocol Stop: 02/24/19 08:59 Last Admin: 12/29/18 08:37 Dose: 10 mg Olanzapine (Zyprexa) 15 mg PO HS [facility]; Protocol Stop: 02/26/19 20:59 Last Admin: 12/29/18 22:00 Dose: 15 mg Potassium Chloride (Klor-Con) 20 meq PO DAILY [facility] Stop: 02/24/19 08:59 Last Admin: 12/29/18 09:00 Dose: Not Given Prednisone (Deltasone) 20 mg PO BID [facility] Stop: 02/24/19 08:59 Last Admin: 12/29/18 18:56 Dose: Not Given Simvastatin (Zocor) 40 mg PO HS [facility]; Protocol Stop: 02/24/19 20:59 Last Admin: 12/29/18 22:00 Dose: Not Given Zolpidem Tartrate (Ambien) 5 mg PO HS PRN PRN Reason: Insomnia Stop: 02/23/19 23:21 Last Admin: 12/30/18 01:26 Dose: 5 mg Zolpidem Tartrate (Ambien) 5 mg PO HS PRN PRN Reason: Insomnia Stop: 02/24/19 22:32 General: No acute distress HEENT: Atraumatic Neck: Supple Cardiovascular: Regular rate, Normal S1, Normal S2 Lungs: Clear to auscultation Abdomen: Bowel sounds, Soft Assessment/Plan - Assessment Assessment: 1.CHRONIC LIVER DISEASE. 2.GOUTY ARTHRITIS. 3.ANEMIA. 4.HYPERLIPIDEMIA. 5.PSYCHOSIS. - Plan Plan: continue current treatment
--- NOTE | 2018-12-30 20:13 | Progress Notes ---
DATE: 12/30/2018 SUBJECTIVE: The patient coming from [facility] with concerns of grave disability. Restraining order is from his because he is apparently scaring her, noted to be anxious, unruly, slept for about 6 hours, still very confused, easily agitated, upset, irritable, loud at times, curses, focused on smoking, very impatient, yelling at staff, telling staff to "get the hell away," believing the medications are poison at times, poor medication compliance. ASSESSMENT: The patient delusional, aggressive, believing medications may be poisoned. PLAN: We will continue to monitor. Continue Zyprexa. I will stop the dosing of Seroquel given the idea that he is already on an antipsychotic medication Zyprexa. We will continue to monitor, encourage better med compliance. PSYCHIATRIC# [id number]
[2018-12-31] MEDS: Ferrous Sulfate 325 MG TAB PO SCH ×2 (12:33→17:25)
[2018-12-31] MEDS: Lactulose 10 Gm/15 mL 30mL UDC PO SCH (12:33)
[2018-12-31] MEDS: Multivitamin Tab PO SCH (12:34)
[2018-12-31] MEDS: Potassium Chloride 20 mEq ER Tab PO SCH (12:34)
--- NOTE | 2018-12-31 19:56 | Internal Medicine Prog Note ---
Internal Medicine Subjective - Subjective Service Date: 12/31/18 Patient seen and examined:: with staff Patient is:: awake, verbal, in bed, talking, confused Per staff patient has:: no adverse event Internal Medicine Objective - Results Result Diagrams: 12/25/18 21:35 12/25/18 21:35 Recent Labs: Laboratory Last Values WBC 3.0 Th/cmm (4.8-10.8) L 12/25/18 21:35 RBC 3.66 Mil/cmm (3.80-5.80) L 12/25/18 21:35 Hgb 10.2 gm/dL (12-16) L 12/25/18 21:35 Hct 31.0 % (41.0-60) L 12/25/18 21:35 MCV 84.5 fl (80-99) 12/25/18 21:35 MCH 27.8 pg (27.0-31.0) 12/25/18 21: MCHC Differential 33.0 pg (28.0-36.0) 12/25/18 21:35 RDW 15.3 % (11.5-20.0) 12/25/18 21:35 Plt Count 220 Th/cmm (150-400) 12/25/18 21:35 MPV 9.1 fl 12/25/18 21:35 Neutrophils % 24.6 % (40.0-80.0) L 12/25/18 21:35 Lymphocytes % 57.0 % (20.0-50.0) H 12/25/18 21:35 Monocytes % 12.7 % (2.0-10.0) H 12/25/18 21:35 Eosinophils % 4.5 % (0.0-5.0) 12/25/18 21:35 Basophils % 1.2 % (0.0-2.0) 12/25/18 21:35 Sodium 136 mEq/L (136-145) 12/25/18 21:35 Potassium 4.8 mEq/L (3.5-5.1) 12/25/18 21:35 Chloride 101 mEq/L (98-107) 12/25/18 21:35 Carbon Dioxide 30.4 mEq/L (21.0-31.0) 12/25/18 21:35 Anion Gap 9.4 (7.0-16.0) 12/25/18 21:35 BUN 18 mg/dL (7-25) 12/25/18 21:35 Creatinine 0.7 mg/dL (0.7-1.3) 12/25/18 21:35 Est GFR ( Amer) > 60.0 ml/min (>90) 12/25/18 21:35 Est GFR (Non-Af Amer) > 60.0 ml/min 12/25/18 21:35 BUN/Creatinine Ratio 25.7 12/25/18 21:35 Glucose 95 mg/dL (70-105) 12/25/18 21:35 POC Glucose 80 MG/DL (70 - 105) 12/25/18 22:34 Whole Bld Lactic Acid 0.86 mmol/L (0.60-1.99) 12/25/18 21:25 Calcium 8.8 mg/dL (8.6-10.3) 12/25/18 21:35 Total Bilirubin 0.3 mg/dL (0.3-1.0) 12/25/18 21:35 AST 27 U/L (13-39) 12/25/18 21:35 ALT 16 U/L (7-52) 12/25/18 21:35 Alkaline Phosphatase 62 U/L (34-104) 12/25/18 21:35 Troponin I 0.04 ng/mL (0.01-0.05) 12/27/18 07:44 B-Natriuretic Peptide 28.6 pg/mL (5.0-100.0) 12/25/18 21:35 Total Protein 6.5 gm/dL (6.0-8.3) 12/25/18 21:35 Albumin 3.3 gm/dL (4.2-5.5) L 12/25/18 21:35 Globulin 3.2 gm/dL 12/25/18 21:35 Albumin/Globulin Ratio 1.0 (1.0-1.8) 12/25/18 21:35 Triglycerides 78 mg/dL (<150) 12/25/18 21:35 Cholesterol 135 mg/dL (<200) 12/25/18 21:35 LDL Cholesterol Direct 86 mg/dL (75-193) 12/25/18 21:35 HDL Cholesterol 40 mg/dL (23-92) 12/25/18 21:35 TSH 1.02 uIU/ml (0.34-5.60) 12/25/18 21:35 RPR NONREACTIVE (NONREACTIVE) 12/25/18 21:35 - Physical Exam Vitals and I&O: Vital Signs Temp 0 F 12/31/18 19:51 Pulse 82 12/31/18 14:00 Resp 20 12/31/18 14:00 BP 93/59 12/31/18 14:00 Pulse Ox 97 12/31/18 14:00 Intake & Output 12/31/18 12/31/18 01/01/19 06:59 18:59 06:59 Intake Total 240 900 120 Balance 240 900 120 Intake: Oral 240 900 120 Other: # Voids 1 3 3 # Bowel Movements 1 0 Active Medications: Current Medications Acetaminophen (Tylenol) 650 mg PO Q4HR PRN PRN Reason: Mild Pain / Temp above 100 Stop: 02/23/19 23:21 Allopurinol (Zyloprim) 100 mg PO DAILY [facility] Stop: 02/24/19 08:59 Last Admin: 12/31/18 12:33 Dose: Not Given Colchicine (Colcrys) 0.6 mg PO DAILY [facility] Stop: 02/24/19 08:59 Last Admin: 12/31/18 12:33 Dose: Not Given Divalproex Sodium (Depakote Dr) 500 mg PO BID [facility]; Protocol Stop: 02/24/19 08:59 Last Admin: 12/31/18 17:25 Dose: 500 mg Docusate Sodium (Colace) 250 mg PO DAILY [facility] Stop: 02/24/19 08:59 Last Admin: 12/31/18 12:33 Dose: Not Given Ferrous Sulfate (Iron) 325 mg PO BID [facility] Stop: 02/24/19 08:59 Last Admin: 12/31/18 17:25 Dose: Not Given Furosemide (Lasix) 40 mg PO DAILY [facility] Stop: 02/24/19 08:59 Last Admin: 12/31/18 08:20 Dose: 40 mg Lactulose (Cephulac) 10 gm PO DAILY [facility] Stop: 02/24/19 08:59 Last Admin: 12/31/18 12:33 Dose: Not Given Lorazepam (Ativan) 0.5 mg PO Q4HR PRN; Protocol PRN Reason: Anxiety Stop: 01/24/19 23:21 Last Admin: 12/31/18 03:04 Dose: 0.5 mg Magnesium Hydroxide (Milk Of Magnesia) 30 ml PO HS PRN PRN Reason: Constipation Multivitamins/Vitamin C (Theragran) 1 tab PO DAILY [facility] Stop: 02/24/19 08:59 Last Admin: 12/31/18 12:34 Dose: Not Given Olanzapine (Zyprexa) 15 mg PO HS [facility]; Protocol Stop: 02/26/19 20:59 Last Admin: 12/30/18 22:42 Dose: 15 mg Olanzapine (Zyprexa) 15 mg PO DAILY [facility]; Protocol Stop: 03/02/19 08:59 Potassium Chloride (Klor-Con) 20 meq PO DAILY [facility] Stop: 02/24/19 08:59 Last Admin: 12/31/18 12:34 Dose: Not Given Prednisone (Deltasone) 20 mg PO BID [facility] Stop: 02/24/19 08:59 Last Admin: 12/31/18 17:26 Dose: Not Given Simvastatin (Zocor) 40 mg PO HS [facility]; Protocol Stop: 02/24/19 20:59 Last Admin: 12/30/18 22:42 Dose: 40 mg Zolpidem Tartrate (Ambien) 5 mg PO HS PRN PRN Reason: Insomnia Stop: 02/23/19 23:21 Last Admin: 12/30/18 22:43 Dose: 5 mg Zolpidem Tartrate (Ambien) 5 mg PO HS PRN PRN Reason: Insomnia Stop: 02/24/19 22:32 General: demented HEENT: NC/AT, PERRLA, EOMI, anicteric sclerae, throat clear Neck: Supple, No JVD, No thyromegaly, +2 carotid pulse wo bruit, No LAD, + JVD Lungs: CTAB Cardiovascular: RRR, Normal S1, Normal S2, without murmur Abdomen: soft, non-tender, non-distended Extremities: clear Neurological: no change Internal Medicine Assmt/Plan - Assessment Assessment: 1.CHRONIC LIVER DISEASE. 2.GOUTY ARTHRITIS. 3.ANEMIA. 4.HYPERLIPIDEMIA. 5.PSYCHOSIS. - Plan Plan: CONTINUE ON CURRENT MEDICATION AND DIET. Nutritional Asmnt/Malnutr-PDOC - Dietary Evaluation Malnutrition Findings (Please click <Entered> for more info): Nutritional Asmnt/Malnutrition Start: 12/31/18 15: 03 Text: Status: Complete Freq: Protocol: Document 12/31/18 15:03 LCHENG (Rec: 12/31/18 15:14 [email or web address]) Nutritional Asmnt/Malnutrition Patient General Information Nutritional Screening Low Risk Diagnosis psychosis Pertinent Medical Hx/Surgical Hx hyperlipidemia, gouty arthritis, chronic liver disease, psychosis Subjective Information Per EMR, PO intake 100%. Per nurse note pt is confused. Current Diet Order/ Nutrition Support regular Pertinent Medications colace, iron, lasix, theragran , kcl Pertinent Labs 12/25 reviewed Nutritional Hx/Data Height 1.8 m Height (Calculated Centimeters) 180.3 Current Weight (lbs) 77.111 kg Weight (Calculated Kilograms) 77.1 Weight (Calculated Grams) 12162.7 [place] Body Weight 172 Body Mass Index (BMI) 23.7 Weight Status Approriate GI Symptoms GI Symptoms None Last BM 12/29 Difficult in: None Skin Integrity/Comment: intact Current %PO Good (75-100%) Estimated Nutritional Goals BEE in Kcals: Using Current wt Calories/Kcals/Kg 25-30 Kcals Calculated 9094-4033 Protein: Using Current wt Protein g/k Protein Calculated 77 Fluid: ml 1925-2310ml (1ml/kcal) Nutritional Problem No current Nutrition Prob Problem N/A Malnutrition Alert Is there a minimum of two criteria No selected? Query Text:Check all the applicable criteria. A minimum of two criteria are recommended for diagnosis of either severe or non-severe malnutrition. Malnutrition Related to Morbid Obesity Malnutrition related to morbid obesity No Intervention/Recommendation Comments 1. Continue with regular diet as ordered. 2. Monitor PO intake, wt, labs and skin integrity 3. F/U as low risk in 7 days Expected Outcomes/Goals Expected Outcomes/Goals 1. PO intake to meet at least 75% of nutritional needs. 2. Wt stability, skin to remain intact, labs to approach WNL.
--- NOTE | 2018-12-31 23:29 | Progress Notes ---
DATE: 12/31/2018 Case was discussed with staff of the patient, reviewed records. The patient continues to be intrusive, continues to be agitated and there is a restraining order from his because he is apparently scaring her. Continues to be irritable, agitated, loud, yelling at staff, telling staff to get the hell away, believe the medication are poison for him, was sometime poor medication compliance. He is delusional, paranoid. Looking disheveled, disorganized, internally preoccupied. No side effects to the medication, no sedation or nausea, no extrapyramidal symptoms. I will be increasing his Zyprexa to 50 mg twice a day. No side effects to the medication, no sedation, no nausea, no extrapyramidal symptoms. We will continue to work with the patient in group therapy, milieu therapy, and adjust the medication as needed. JOB# [id number]
[2019-01-01] MEDS: Multivitamin Tab PO SCH (09:11)
[2019-01-01] MEDS: Ferrous Sulfate 325 MG TAB PO SCH ×2 (09:13→16:17)
[2019-01-01] MEDS: Potassium Chloride 20 mEq ER Tab PO SCH (09:14)
[2019-01-01] MEDS: Lactulose 10 Gm/15 mL 30mL UDC PO SCH (09:14)
--- NOTE | 2019-01-01 21:17 | Internal Medicine Prog Note ---
Internal Medicine Subjective - Subjective Service Date: 01/01/19 Patient seen and examined:: without staff Patient is:: awake, verbal, in bed, talking, confused Per staff patient has:: no adverse event Internal Medicine Objective - Results Result Diagrams: 12/25/18 21:35 12/25/18 21:35 Recent Labs: Laboratory Last Values WBC 3.0 Th/cmm (4.8-10.8) L 12/25/18 21:35 RBC 3.66 Mil/cmm (3.80-5.80) L 12/25/18 21:35 Hgb 10.2 gm/dL (12-16) L 12/25/18 21:35 Hct 31.0 % (41.0-60) L 12/25/18 21:35 MCV 84.5 fl (80-99) 12/25/18 21:35 MCH 27.8 pg (27.0-31.0) 12/25/18 21: MCHC Differential 33.0 pg (28.0-36.0) 12/25/18 21:35 RDW 15.3 % (11.5-20.0) 12/25/18 21:35 Plt Count 220 Th/cmm (150-400) 12/25/18 21:35 MPV 9.1 fl 12/25/18 21:35 Neutrophils % 24.6 % (40.0-80.0) L 12/25/18 21:35 Lymphocytes % 57.0 % (20.0-50.0) H 12/25/18 21:35 Monocytes % 12.7 % (2.0-10.0) H 12/25/18 21:35 Eosinophils % 4.5 % (0.0-5.0) 12/25/18 21:35 Basophils % 1.2 % (0.0-2.0) 12/25/18 21:35 Sodium 136 mEq/L (136-145) 12/25/18 21:35 Potassium 4.8 mEq/L (3.5-5.1) 12/25/18 21:35 Chloride 101 mEq/L (98-107) 12/25/18 21:35 Carbon Dioxide 30.4 mEq/L (21.0-31.0) 12/25/18 21:35 Anion Gap 9.4 (7.0-16.0) 12/25/18 21:35 BUN 18 mg/dL (7-25) 12/25/18 21:35 Creatinine 0.7 mg/dL (0.7-1.3) 12/25/18 21:35 Est GFR ( Amer) > 60.0 ml/min (>90) 12/25/18 21:35 Est GFR (Non-Af Amer) > 60.0 ml/min 12/25/18 21:35 BUN/Creatinine Ratio 25.7 12/25/18 21:35 Glucose 95 mg/dL (70-105) 12/25/18 21:35 POC Glucose 80 MG/DL (70 - 105) 12/25/18 22:34 Whole Bld Lactic Acid 0.86 mmol/L (0.60-1.99) 12/25/18 21:25 Calcium 8.8 mg/dL (8.6-10.3) 12/25/18 21:35 Total Bilirubin 0.3 mg/dL (0.3-1.0) 12/25/18 21:35 AST 27 U/L (13-39) 12/25/18 21:35 ALT 16 U/L (7-52) 12/25/18 21:35 Alkaline Phosphatase 62 U/L (34-104) 12/25/18 21:35 Troponin I 0.04 ng/mL (0.01-0.05) 12/27/18 07:44 B-Natriuretic Peptide 28.6 pg/mL (5.0-100.0) 12/25/18 21:35 Total Protein 6.5 gm/dL (6.0-8.3) 12/25/18 21:35 Albumin 3.3 gm/dL (4.2-5.5) L 12/25/18 21:35 Globulin 3.2 gm/dL 12/25/18 21:35 Albumin/Globulin Ratio 1.0 (1.0-1.8) 12/25/18 21:35 Triglycerides 78 mg/dL (<150) 12/25/18 21:35 Cholesterol 135 mg/dL (<200) 12/25/18 21:35 LDL Cholesterol Direct 86 mg/dL (75-193) 12/25/18 21:35 HDL Cholesterol 40 mg/dL (23-92) 12/25/18 21:35 TSH 1.02 uIU/ml (0.34-5.60) 12/25/18 21:35 Valproic Acid 17.2 ug/mL (50.0-100.0) L 01/01/19 19:35 RPR NONREACTIVE (NONREACTIVE) 12/25/18 21:35 - Physical Exam Vitals and I&O: Vital Signs Temp 97.1 F 01/01/19 20:00 Pulse 81 01/01/19 20:00 Resp 19 01/01/19 20:00 BP 132/71 01/01/19 20:00 Pulse Ox 98 01/01/19 20:00 Intake & Output 01/01/19 01/01/19 01/02/19 06:59 18:59 06:59 Intake Total 470 900 Balance 470 900 Intake: Oral 470 900 Other: # Voids 3 3 # Bowel Movements 0 1 Active Medications: Current Medications Acetaminophen (Tylenol) 650 mg PO Q4HR PRN PRN Reason: Mild Pain / Temp above 100 Stop: 02/23/19 23:21 Allopurinol (Zyloprim) 100 mg PO DAILY [facility] Stop: 02/24/19 08:59 Last Admin: 01/01/19 09:13 Dose: 100 mg Clonazepam (Klonopin) 1 mg PO BID [facility]; Protocol Stop: 03/02/19 08:59 Colchicine (Colcrys) 0.6 mg PO DAILY [facility] Stop: 02/24/19 08:59 Last Admin: 01/01/19 09:00 Dose: 0.6 mg Divalproex Sodium (Depakote Dr) 500 mg PO BID [facility]; Protocol Stop: 02/24/19 08:59 Last Admin: 01/01/19 16:17 Dose: 500 mg Docusate Sodium (Colace) 250 mg PO DAILY [facility] Stop: 02/24/19 08:59 Last Admin: 01/01/19 09:14 Dose: 250 mg Ferrous Sulfate (Iron) 325 mg PO BID [facility] Stop: 02/24/19 08:59 Last Admin: 01/01/19 16:17 Dose: 325 mg Furosemide (Lasix) 40 mg PO DAILY [facility] Stop: 02/24/19 08:59 Last Admin: 01/01/19 09:13 Dose: 40 mg Lactulose (Cephulac) 10 gm PO DAILY [facility] Stop: 02/24/19 08:59 Last Admin: 01/01/19 09:14 Dose: 10 gm Lorazepam (Ativan) 0.5 mg PO Q4HR PRN; Protocol PRN Reason: Anxiety Stop: 01/24/19 23:21 Last Admin: 12/31/18 20:50 Dose: 0.5 mg Magnesium Hydroxide (Milk Of Magnesia) 30 ml PO HS PRN PRN Reason: Constipation Multivitamins/Vitamin C (Theragran) 1 tab PO DAILY [facility] Stop: 02/24/19 08:59 Last Admin: 01/01/19 09:11 Dose: 1 tab Olanzapine (Zyprexa) 15 mg PO HS [facility]; Protocol Stop: 02/26/19 20:59 Last Admin: 01/01/19 21:03 Dose: 15 mg Olanzapine (Zyprexa) 15 mg PO DAILY [facility]; Protocol Stop: 03/02/19 08:59 Last Admin: 01/01/19 09:14 Dose: 15 mg Potassium Chloride (Klor-Con) 20 meq PO DAILY [facility] Stop: 02/24/19 08:59 Last Admin: 01/01/19 09:14 Dose: 20 meq Prednisone (Deltasone) 20 mg PO BID [facility] Stop: 02/24/19 08:59 Last Admin: 01/01/19 16:17 Dose: 20 mg Simvastatin (Zocor) 40 mg PO HS [facility]; Protocol Stop: 02/24/19 20:59 Last Admin: 01/01/19 21:03 Dose: 40 mg Zolpidem Tartrate (Ambien) 5 mg PO HS PRN PRN Reason: Insomnia Stop: 02/23/19 23:21 Last Admin: 12/31/18 22:42 Dose: 5 mg Zolpidem Tartrate (Ambien) 5 mg PO HS PRN PRN Reason: Insomnia Stop: 02/24/19 22:32 General: demented HEENT: NC/AT, PERRLA, EOMI, anicteric sclerae, throat clear Neck: Supple, No JVD, No thyromegaly, +2 carotid pulse wo bruit, No LAD, + JVD Lungs: CTAB Cardiovascular: RRR, Normal S1, Normal S2, without murmur Abdomen: soft, non-tender, non-distended Extremities: clear Neurological: no change Internal Medicine Assmt/Plan - Assessment Assessment: 1.CHRONIC LIVER DISEASE. 2.GOUTY ARTHRITIS. 3.ANEMIA. 4.HYPERLIPIDEMIA. 5.PSYCHOSIS. - Plan Plan: CONTINUE ON CURRENT MEDICATION AND DIET. Nutritional Asmnt/Malnutr-PDOC - Dietary Evaluation Malnutrition Findings (Please click <Entered> for more info): Nutritional Asmnt/Malnutrition Start: 12/31/18 15: 03 Text: Status: Complete Freq: Protocol: Document 12/31/18 15:03 CARMENG (Rec: 12/31/18 15:14 TORSTEN [email or web address]) Nutritional Asmnt/Malnutrition Patient General Information Nutritional Screening Low Risk Diagnosis psychosis Pertinent Medical Hx/Surgical Hx hyperlipidemia, gouty arthritis, chronic liver disease, psychosis Subjective Information Per EMR, PO intake 100%. Per nurse note pt is confused. Current Diet Order/ Nutrition Support regular Pertinent Medications colace, iron, lasix, theragran , kcl Pertinent Labs 12/25 reviewed Nutritional Hx/Data Height 1.8 m Height (Calculated Centimeters) 180.3 Current Weight (lbs) 77.111 kg Weight (Calculated Kilograms) 77.1 Weight (Calculated Grams) 66294.7 [place] Body Weight 172 Body Mass Index (BMI) 23.7 Weight Status Approriate GI Symptoms GI Symptoms None Last BM 12/29 Difficult in: None Skin Integrity/Comment: intact Current %PO Good (75-100%) Estimated Nutritional Goals BEE in Kcals: Using Current wt Calories/Kcals/Kg 25-30 Kcals Calculated 8976-8107 Protein: Using Current wt Protein g/k Protein Calculated 77 Fluid: ml 1925-2310ml (1ml/kcal) Nutritional Problem No current Nutrition Prob Problem N/A Malnutrition Alert Is there a minimum of two criteria No selected? Query Text:Check all the applicable criteria. A minimum of two criteria are recommended for diagnosis of either severe or non-severe malnutrition. Malnutrition Related to Morbid Obesity Malnutrition related to morbid obesity No Intervention/Recommendation Comments 1. Continue with regular diet as ordered. 2. Monitor PO intake, wt, labs and skin integrity 3. F/U as low risk in 7 days Expected Outcomes/Goals Expected Outcomes/Goals 1. PO intake to meet at least 75% of nutritional needs. 2. Wt stability, skin to remain intact, labs to approach WNL.
--- NOTE | 2019-01-02 00:26 | Progress Notes ---
DATE: 01/01/2019 SUBJECTIVE: Chart was reviewed and the patient interviewed. Also, discussed the patient's condition with the staff and reviewed records and labs. The patient continued to be hyperverbal and continued to be argumentative. The patient also is still suspicious and is still paranoid. Also, has not been able to follow directions and has grandiose delusions. Also, during interview, the patient thinks that he is "FBI with 5 starts." The patient also denies any side effects of Depakote or Zyprexa. ASSESSMENT: The patient is still exhibiting manic behavior and is still psychotic. TREATMENT PLAN: We will add Klonopin in a dose of 1 mg twice a day. Also, we will get Depakote blood level. Also, continue adjusting psychotropic medications and work on behavioral modification and his manic behavior. JOB# [id number]
[2019-01-02] MEDS ORDERED: Haloperidol Lactate 5 mg/mL 1mL Vial ONE (07:27)
[2019-01-02] MEDS ORDERED: Haloperidol Lactate 5 mg/mL 1mL Vial IM ONE (07:43)
[2019-01-02] MEDS: Lactulose 10 Gm/15 mL 30mL UDC PO SCH (09:00)
[2019-01-02] MEDS: Multivitamin Tab PO SCH (09:00)
[2019-01-02] MEDS: Potassium Chloride 20 mEq ER Tab PO SCH (09:00)
[2019-01-02] MEDS: Ferrous Sulfate 325 MG TAB PO SCH ×2 (16:35→16:44)
--- NOTE | 2019-01-02 20:43 | Progress Notes ---
DATE: 01/02/2019 PSYCHIATRIC PROGRESS NOTE SUBJECTIVE: Chart was reviewed and the patient interviewed. Also discussed the patient's condition with the staff and reviewed records and labs. The patient continued to be argumentative and he is still extremely agitated and in irritable mood. The patient threatened "to kill staff" according to the staff report. The patient also is still pacing from one room to another and disturbing other patients. He also is still having difficulty following any of staff directions. The patient also is still restless and is still unable to follow directions and on other hand threatens when staff tries to redirect him. The patient also is not compliant with taking his medications and does not want to take medications on a regular basis. At the same time, he is still feeling hopeless and he still has difficulty expressing himself and expressing his needs at times because of his agitation and irritability. ASSESSMENT: The patient is still psychotic and is still can be dangerous to others. TREATMENT PLAN: We will discontinue Depakote and we will start Seroquel in a dose of 100 mg twice a day and 200 mg at bedtime. Also, we will continue Zyprexa and cross titrate Seroquel and Zyprexa. Also, continue to monitor his behavior and his condition closely. [facility]# [id number]
--- NOTE | 2019-01-02 22:03 | Internal Medicine Prog Note ---
Internal Medicine Subjective - Subjective Service Date: 01/02/19 Patient seen and examined:: with staff (HE FEELS GOOD) Patient is:: awake, verbal, in bed, talking, confused Per staff patient has:: no adverse event Internal Medicine Objective - Results Result Diagrams: 12/25/18 21:35 12/25/18 21:35 Recent Labs: Laboratory Last Values WBC 3.0 Th/cmm (4.8-10.8) L 12/25/18 21:35 RBC 3.66 Mil/cmm (3.80-5.80) L 12/25/18 21:35 Hgb 10.2 gm/dL (12-16) L 12/25/18 21:35 Hct 31.0 % (41.0-60) L 12/25/18 21:35 MCV 84.5 fl (80-99) 12/25/18 21:35 MCH 27.8 pg (27.0-31.0) 12/25/18 21:35 MCHC Differential 33.0 pg (28.0-36.0) 12/25/18 21:35 RDW 15.3 % (11.5-20.0) 12/25/18 21:35 Plt Count 220 Th/cmm (150-400) 12/25/18 21:35 MPV 9.1 fl 12/25/18 21:35 Neutrophils % 24.6 % (40.0-80.0) L 12/25/18 21:35 Lymphocytes % 57.0 % (20.0-50.0) H 12/25/18 21:35 Monocytes % 12.7 % (2.0-10.0) H 12/25/18 21:35 Eosinophils % 4.5 % (0.0-5.0) 12/25/18 21:35 Basophils % 1.2 % (0.0-2.0) 12/25/18 21:35 Sodium 136 mEq/L (136-145) 12/25/18 21:35 Potassium 4.8 mEq/L (3.5-5.1) 12/25/18 21:35 Chloride 101 mEq/L (98-107) 12/25/18 21:35 Carbon Dioxide 30.4 mEq/L (21.0-31.0) 12/25/18 21:35 Anion Gap 9.4 (7.0-16.0) 12/25/18 21:35 BUN 18 mg/dL (7-25) 12/25/18 21:35 Creatinine 0.7 mg/dL (0.7-1.3) 12/25/18 21:35 Est GFR ( Amer) > 60.0 ml/min (>90) 12/25/18 21:35 Est GFR (Non-Af Amer) > 60.0 ml/min 12/25/18 21:35 BUN/Creatinine Ratio 25.7 12/25/18 21:35 Glucose 95 mg/dL (70-105) 12/25/18 21:35 POC Glucose 80 MG/DL (70 - 105) 12/25/18 22:34 Whole Bld Lactic Acid 0.86 mmol/L (0.60-1.99) 12/25/18 21:25 Calcium 8.8 mg/dL (8.6-10.3) 12/25/18 21:35 Total Bilirubin 0.3 mg/dL (0.3-1.0) 12/25/18 21:35 AST 27 U/L (13-39) 12/25/18 21:35 ALT 16 U/L (7-52) 12/25/18 21:35 Alkaline Phosphatase 62 U/L (34-104) 12/25/18 21:35 Troponin I 0.04 ng/mL (0.01-0.05) 12/27/18 07:44 B-Natriuretic Peptide 28.6 pg/mL (5.0-100.0) 12/25/18 21:35 Total Protein 6.5 gm/dL (6.0-8.3) 12/25/18 21:35 Albumin 3.3 gm/dL (4.2-5.5) L 12/25/18 21:35 Globulin 3.2 gm/dL 12/25/18 21:35 Albumin/Globulin Ratio 1.0 (1.0-1.8) 12/25/18 21:35 Triglycerides 78 mg/dL (<150) 12/25/18 21:35 Cholesterol 135 mg/dL (<200) 12/25/18 21:35 LDL Cholesterol Direct 86 mg/dL (75-193) 12/25/18 21:35 HDL Cholesterol 40 mg/dL (23-92) 12/25/18 21:35 TSH 1.02 uIU/ml (0.34-5.60) 12/25/18 21:35 Valproic Acid 17.2 ug/mL (50.0-100.0) L 01/01/19 19:35 RPR NONREACTIVE (NONREACTIVE) 12/25/18 21:35 - Physical Exam Vitals and I&O: Vital Signs Temp 98.8 F 01/02/19 20:00 Pulse 82 01/02/19 20:00 Resp 20 01/02/19 20:00 BP 122/67 01/02/19 20:00 Pulse Ox 98 01/02/19 20:00 Intake & Output 01/02/19 01/02/19 01/03/19 06:59 18:59 06:59 Intake Total 620 Balance 620 Intake: Oral 120 Other 500 Other: # Voids 1 # Bowel Movements 1 Active Medications: Current Medications Acetaminophen (Tylenol) 650 mg PO Q4HR PRN PRN Reason: Mild Pain / Temp above 100 Stop: 02/23/19 23:21 Allopurinol (Zyloprim) 100 mg PO DAILY [facility] Stop: 02/24/19 08:59 Last Admin: 01/02/19 09:00 Dose: Not Given Clonazepam (Klonopin) 1 mg PO BID [facility]; Protocol Stop: 03/02/19 08:59 Last Admin: 01/02/19 16:31 Dose: Not Given Colchicine (Colcrys) 0.6 mg PO DAILY [facility] Stop: 02/24/19 08:59 Last Admin: 01/02/19 16:33 Dose: Not Given Divalproex Sodium (Depakote Dr) 500 mg PO BID [facility]; Protocol Stop: 02/24/19 08:59 Last Admin: 01/02/19 16:34 Dose: Not Given Docusate Sodium (Colace) 250 mg PO DAILY [facility] Stop: 02/24/19 08:59 Last Admin: 01/02/19 09:00 Dose: Not Given Ferrous Sulfate (Iron) 325 mg PO BID [facility] Stop: 02/24/19 08:59 Last Admin: 01/02/19 16:44 Dose: Not Given Furosemide (Lasix) 40 mg PO DAILY [facility] Stop: 02/24/19 08:59 Last Admin: 01/02/19 16:36 Dose: Not Given Lactulose (Cephulac) 10 gm PO DAILY [facility] Stop: 02/24/19 08:59 Last Admin: 01/02/19 09:00 Dose: Not Given Lorazepam (Ativan) 0.5 mg PO Q4HR PRN; Protocol PRN Reason: Anxiety Stop: 01/24/19 23:21 Last Admin: 12/31/18 20:50 Dose: 0.5 mg Magnesium Hydroxide (Milk Of Magnesia) 30 ml PO HS PRN PRN Reason: Constipation Multivitamins/Vitamin C (Theragran) 1 tab PO DAILY [facility] Stop: 02/24/19 08:59 Last Admin: 01/02/19 09:00 Dose: Not Given Olanzapine (Zyprexa) 15 mg PO HS [facility]; Protocol Stop: 02/26/19 20:59 Last Admin: 01/02/19 20:54 Dose: 15 mg Olanzapine (Zyprexa) 15 mg PO DAILY [facility]; Protocol Stop: 03/02/19 08:59 Last Admin: 01/02/19 09:00 Dose: Not Given Potassium Chloride (Klor-Con) 20 meq PO DAILY [facility] Stop: 02/24/19 08:59 Last Admin: 01/02/19 09:00 Dose: Not Given Prednisone (Deltasone) 20 mg PO BID [facility] Stop: 02/24/19 08:59 Last Admin: 01/02/19 16:44 Dose: Not Given Quetiapine Fumarate (Seroquel) 100 mg PO BID [facility]; Protocol Stop: 03/03/19 08:59 Last Admin: 01/02/19 16:43 Dose: Not Given Quetiapine Fumarate (Seroquel) 200 mg PO HS [facility]; Protocol Stop: 03/03/19 20:59 Last Admin: 01/02/19 20:54 Dose: 200 mg Simvastatin (Zocor) 40 mg PO HS [facility]; Protocol Stop: 02/24/19 20:59 Last Admin: 01/02/19 20:54 Dose: 40 mg Zolpidem Tartrate (Ambien) 5 mg PO HS PRN PRN Reason: Insomnia Stop: 02/23/19 23:21 Last Admin: 12/31/18 22:42 Dose: 5 mg Zolpidem Tartrate (Ambien) 5 mg PO HS PRN PRN Reason: Insomnia Stop: 02/24/19 22:32 General: demented HEENT: NC/AT, PERRLA, EOMI, anicteric sclerae, throat clear Neck: Supple, No JVD, No thyromegaly, +2 carotid pulse wo bruit, No LAD, + JVD Lungs: CTAB Cardiovascular: RRR, Normal S1, Normal S2, without murmur Abdomen: soft, non-tender, non-distended Extremities: clear Neurological: no change Internal Medicine Assmt/Plan - Assessment Assessment: 1.CHRONIC LIVER DISEASE. 2.GOUTY ARTHRITIS. 3.ANEMIA. 4.HYPERLIPIDEMIA. 5.PSYCHOSIS. - Plan Plan: CONTINUE ON CURRENT MEDICATION AND DIET. Nutritional Asmnt/Malnutr-PDOC - Dietary Evaluation Malnutrition Findings (Please click <Entered> for more info): Nutritional Asmnt/Malnutrition Start: 12/31/18 15: 03 Text: Status: Complete Freq: Protocol: Document 12/31/18 15:03 LCHENG (Rec: 12/31/18 15:14 LCHENG [email or web address]) Nutritional Asmnt/Malnutrition Patient General Information Nutritional Screening Low Risk Diagnosis psychosis Pertinent Medical Hx/Surgical Hx hyperlipidemia, gouty arthritis, chronic liver disease, psychosis Subjective Information Per EMR, PO intake 100%. Per nurse note pt is confused. Current Diet Order/ Nutrition Support regular Pertinent Medications colace, iron, lasix, theragran , kcl Pertinent Labs 12/25 reviewed Nutritional Hx/Data Height 1.8 m Height (Calculated Centimeters) 180.3 Current Weight (lbs) 77.111 kg Weight (Calculated Kilograms) 77.1 Weight (Calculated Grams) 81052.7 [place] Body Weight 172 Body Mass Index (BMI) 23.7 Weight Status Approriate GI Symptoms GI Symptoms None Last BM 12/29 Difficult in: None Skin Integrity/Comment: intact Current %PO Good (75-100%) Estimated Nutritional Goals BEE in Kcals: Using Current wt Calories/Kcals/Kg 25-30 Kcals Calculated 0316-3465 Protein: Using Current wt Protein g/k Protein Calculated 77 Fluid: ml 1925-2310ml (1ml/kcal) Nutritional Problem No current Nutrition Prob Problem N/A Malnutrition Alert Is there a minimum of two criteria No selected? Query Text:Check all the applicable criteria. A minimum of two criteria are recommended for diagnosis of either severe or non-severe malnutrition. Malnutrition Related to Morbid Obesity Malnutrition related to morbid obesity No Intervention/Recommendation Comments 1. Continue with regular diet as ordered. 2. Monitor PO intake, wt, labs and skin integrity 3. F/U as low risk in 7 days Expected Outcomes/Goals Expected Outcomes/Goals 1. PO intake to meet at least 75% of nutritional needs. 2. Wt stability, skin to remain intact, labs to approach WNL.
[2019-01-03] MEDS: Multivitamin Tab PO SCH (08:44)
[2019-01-03] MEDS: Potassium Chloride 20 mEq ER Tab PO SCH (08:44)
[2019-01-03] MEDS: Ferrous Sulfate 325 MG TAB PO SCH ×2 (08:44→17:14)
[2019-01-03] MEDS: Lactulose 10 Gm/15 mL 30mL UDC PO SCH (08:47)
--- NOTE | 2019-01-03 18:10 | Internal Medicine Prog Note ---
Internal Medicine Subjective - Subjective Service Date: 01/03/19 Patient seen and examined:: with staff Patient is:: awake, verbal, in bed, talking, confused Per staff patient has:: no adverse event Internal Medicine Objective - Results Result Diagrams: 12/25/18 21:35 12/25/18 21:35 Recent Labs: Laboratory Last Values WBC 3.0 Th/cmm (4.8-10.8) L 12/25/18 21:35 RBC 3.66 Mil/cmm (3.80-5.80) L 12/25/18 21:35 Hgb 10.2 gm/dL (12-16) L 12/25/18 21:35 Hct 31.0 % (41.0-60) L 12/25/18 21:35 MCV 84.5 fl (80-99) 12/25/18 21:35 MCH 27.8 pg (27.0-31.0) 12/25/18 21: MCHC Differential 33.0 pg (28.0-36.0) 12/25/18 21:35 RDW 15.3 % (11.5-20.0) 12/25/18 21:35 Plt Count 220 Th/cmm (150-400) 12/25/18 21:35 MPV 9.1 fl 12/25/18 21:35 Neutrophils % 24.6 % (40.0-80.0) L 12/25/18 21:35 Lymphocytes % 57.0 % (20.0-50.0) H 12/25/18 21:35 Monocytes % 12.7 % (2.0-10.0) H 12/25/18 21:35 Eosinophils % 4.5 % (0.0-5.0) 12/25/18 21:35 Basophils % 1.2 % (0.0-2.0) 12/25/18 21:35 Sodium 136 mEq/L (136-145) 12/25/18 21:35 Potassium 4.8 mEq/L (3.5-5.1) 12/25/18 21:35 Chloride 101 mEq/L (98-107) 12/25/18 21:35 Carbon Dioxide 30.4 mEq/L (21.0-31.0) 12/25/18 21:35 Anion Gap 9.4 (7.0-16.0) 12/25/18 21:35 BUN 18 mg/dL (7-25) 12/25/18 21:35 Creatinine 0.7 mg/dL (0.7-1.3) 12/25/18 21:35 Est GFR ( Amer) > 60.0 ml/min (>90) 12/25/18 21:35 Est GFR (Non-Af Amer) > 60.0 ml/min 12/25/18 21:35 BUN/Creatinine Ratio 25.7 12/25/18 21:35 Glucose 95 mg/dL (70-105) 12/25/18 21:35 POC Glucose 80 MG/DL (70 - 105) 12/25/18 22:34 Whole Bld Lactic Acid 0.86 mmol/L (0.60-1.99) 12/25/18 21:25 Calcium 8.8 mg/dL (8.6-10.3) 12/25/18 21:35 Total Bilirubin 0.3 mg/dL (0.3-1.0) 12/25/18 21:35 AST 27 U/L (13-39) 12/25/18 21:35 ALT 16 U/L (7-52) 12/25/18 21:35 Alkaline Phosphatase 62 U/L (34-104) 12/25/18 21:35 Troponin I 0.04 ng/mL (0.01-0.05) 12/27/18 07:44 B-Natriuretic Peptide 28.6 pg/mL (5.0-100.0) 12/25/18 21:35 Total Protein 6.5 gm/dL (6.0-8.3) 12/25/18 21:35 Albumin 3.3 gm/dL (4.2-5.5) L 12/25/18 21:35 Globulin 3.2 gm/dL 12/25/18 21:35 Albumin/Globulin Ratio 1.0 (1.0-1.8) 12/25/18 21:35 Triglycerides 78 mg/dL (<150) 12/25/18 21:35 Cholesterol 135 mg/dL (<200) 12/25/18 21:35 LDL Cholesterol Direct 86 mg/dL (75-193) 12/25/18 21:35 HDL Cholesterol 40 mg/dL (23-92) 12/25/18 21:35 TSH 1.02 uIU/ml (0.34-5.60) 12/25/18 21:35 Valproic Acid 17.2 ug/mL (50.0-100.0) L 01/01/19 19:35 RPR NONREACTIVE (NONREACTIVE) 12/25/18 21:35 - Physical Exam Vitals and I&O: Vital Signs Temp 97.4 F 01/03/19 14:00 Pulse 90 01/03/19 14:00 Resp 18 01/03/19 14:00 BP 140/84 01/03/19 14:00 Pulse Ox 97 01/03/19 14:00 Intake & Output 01/02/19 01/03/19 01/03/19 18:59 06:59 18:59 Intake Total 120 Balance 120 Intake: Oral 120 Other: # Voids 3 Active Medications: Current Medications Acetaminophen (Tylenol) 650 mg PO Q4HR PRN PRN Reason: Mild Pain / Temp above 100 Stop: 02/23/19 23:21 Allopurinol (Zyloprim) 100 mg PO DAILY [facility] Stop: 02/24/19 08:59 Last Admin: 01/03/19 08:44 Dose: Not Given Clonazepam (Klonopin) 1 mg PO BID [facility]; Protocol Stop: 03/02/19 08:59 Last Admin: 01/03/19 17:14 Dose: 1 mg Colchicine (Colcrys) 0.6 mg PO DAILY [facility] Stop: 02/24/19 08:59 Last Admin: 01/03/19 09:01 Dose: Not Given Divalproex Sodium (Depakote Dr) 500 mg PO BID [facility]; Protocol Stop: 02/24/19 08:59 Last Admin: 01/03/19 17:14 Dose: 500 mg Docusate Sodium (Colace) 250 mg PO DAILY [facility] Stop: 02/24/19 08:59 Last Admin: 01/03/19 08:44 Dose: Not Given Ferrous Sulfate (Iron) 325 mg PO BID [facility] Stop: 02/24/19 08:59 Last Admin: 01/03/19 17:14 Dose: 325 mg Furosemide (Lasix) 40 mg PO DAILY [facility] Stop: 02/24/19 08:59 Last Admin: 01/03/19 08:44 Dose: Not Given Haloperidol Decanoate (Haldol Dec) 50 mg IM QMONTH [facility]; Protocol Stop: 03/04/19 09:59 Last Admin: 01/03/19 11:40 Dose: 50 mg Lactulose (Cephulac) 10 gm PO DAILY [facility] Stop: 02/24/19 08:59 Last Admin: 01/03/19 08:47 Dose: Not Given Lorazepam (Ativan) 0.5 mg PO Q4HR PRN; Protocol PRN Reason: Anxiety Stop: 01/24/19 23:21 Last Admin: 12/31/18 20:50 Dose: 0.5 mg Magnesium Hydroxide (Milk Of Magnesia) 30 ml PO HS PRN PRN Reason: Constipation Multivitamins/Vitamin C (Theragran) 1 tab PO DAILY [facility] Stop: 02/24/19 08:59 Last Admin: 01/03/19 08:44 Dose: Not Given Olanzapine (Zyprexa) 15 mg PO HS [facility]; Protocol Stop: 02/26/19 20:59 Last Admin: 01/02/19 20:54 Dose: 15 mg Olanzapine (Zyprexa) 15 mg PO DAILY [facility]; Protocol Stop: 03/02/19 08:59 Last Admin: 01/03/19 08:44 Dose: Not Given Potassium Chloride (Klor-Con) 20 meq PO DAILY [facility] Stop: 02/24/19 08:59 Last Admin: 01/03/19 08:44 Dose: Not Given Prednisone (Deltasone) 20 mg PO BID [facility] Stop: 02/24/19 08:59 Last Admin: 01/03/19 17:14 Dose: 20 mg Quetiapine Fumarate (Seroquel) 100 mg PO BID [facility]; Protocol Stop: 03/03/19 08:59 Last Admin: 01/03/19 17:14 Dose: 100 mg Quetiapine Fumarate (Seroquel) 200 mg PO HS [facility]; Protocol Stop: 03/03/19 20:59 Last Admin: 01/02/19 20:54 Dose: 200 mg Simvastatin (Zocor) 40 mg PO HS [facility]; Protocol Stop: 02/24/19 20:59 Last Admin: 01/02/19 20:54 Dose: 40 mg Zolpidem Tartrate (Ambien) 5 mg PO HS PRN PRN Reason: Insomnia Stop: 02/23/19 23:21 Last Admin: 12/31/18 22:42 Dose: 5 mg Zolpidem Tartrate (Ambien) 5 mg PO HS PRN PRN Reason: Insomnia Stop: 02/24/19 22:32 General: demented HEENT: NC/AT, PERRLA, EOMI, anicteric sclerae, throat clear Neck: Supple, No JVD, No thyromegaly, +2 carotid pulse wo bruit, No LAD, + JVD Lungs: CTAB Cardiovascular: RRR, Normal S1, Normal S2, without murmur Abdomen: soft, non-tender, non-distended Extremities: clear Neurological: no change Internal Medicine Assmt/Plan - Assessment Assessment: 1.CHRONIC LIVER DISEASE. 2.GOUTY ARTHRITIS. 3.ANEMIA. 4.HYPERLIPIDEMIA. 5.PSYCHOSIS. - Plan Plan: CONTINUE ON CURRENT MEDICATION AND DIET. Nutritional Asmnt/Malnutr-PDOC - Dietary Evaluation Malnutrition Findings (Please click <Entered> for more info): Nutritional Asmnt/Malnutrition Start: 12/31/18 15: 03 Text: Status: Complete Freq: Protocol: Document 12/31/18 15:03 [email or web address] (Rec: 12/31/18 15:14 [email or web address]) Nutritional Asmnt/Malnutrition Patient General Information Nutritional Screening Low Risk Diagnosis psychosis Pertinent Medical Hx/Surgical Hx hyperlipidemia, gouty arthritis, chronic liver disease, psychosis Subjective Information Per EMR, PO intake 100%. Per nurse note pt is confused. Current Diet Order/ Nutrition Support regular Pertinent Medications colace, iron, lasix, theragran , kcl Pertinent Labs 12/25 reviewed Nutritional Hx/Data Height 1.8 m Height (Calculated Centimeters) 180.3 Current Weight (lbs) 77.111 kg Weight (Calculated Kilograms) 77.1 Weight (Calculated Grams) 39298.7 [place] Body Weight 172 Body Mass Index (BMI) 23.7 Weight Status Approriate GI Symptoms GI Symptoms None Last BM 12/29 Difficult in: None Skin Integrity/Comment: intact Current %PO Good (75-100%) Estimated Nutritional Goals BEE in Kcals: Using Current wt Calories/Kcals/Kg 25-30 Kcals Calculated 4782-6403 Protein: Using Current wt Protein g/k Protein Calculated 77 Fluid: ml 1925-2310ml (1ml/kcal) Nutritional Problem No current Nutrition Prob Problem N/A Malnutrition Alert Is there a minimum of two criteria No selected? Query Text:Check all the applicable criteria. A minimum of two criteria are recommended for diagnosis of either severe or non-severe malnutrition. Malnutrition Related to Morbid Obesity Malnutrition related to morbid obesity No Intervention/Recommendation Comments 1. Continue with regular diet as ordered. 2. Monitor PO intake, wt, labs and skin integrity 3. F/U as low risk in 7 days Expected Outcomes/Goals Expected Outcomes/Goals 1. PO intake to meet at least 75% of nutritional needs. 2. Wt stability, skin to remain intact, labs to approach WNL.
--- NOTE | 2019-01-04 03:01 | Progress Notes ---
DATE: 01/03/2019 SUBJECTIVE: Chart reviewed and the patient interviewed. Also discussed the patient's condition with the staff and reviewed records and labs. The patient is still extremely agitated and yesterday during the day, the patient had to be given Haldol, Ativan and Benadryl injection on emergency basis because of his threatening staff and threatening other patients with foul language and used the word "kill." After he took the injection, he was slightly calmer. Also at night, the patient did take both, Seroquel and the Zyprexa, which did help the patient to sleep better at night. This morning, he is still slightly agitated and argumentative and he is still easily angry and he is still feeling hopeless and helpless. Also, is still angry and in irritable mood. The patient also is still suspicious and is still paranoid with grandiose delusions. Still thinking people are going to poison him. The patient also is questionable taking medications and is still argumentative about taking his medications and it seems that compliance might be an issue at any time. ASSESSMENT: The patient is still psychotic, but showing some improvement. TREATMENT PLAN: We will continue to monitor his behavior and his condition closely. Also, we will give the patient Haldol Decanoate 50 mg per mL once every month for better compliance. Also, continue to work on his poor impulse control and his threatening behavior and continue to follow up. JOB# [id number]
[2019-01-04] MEDS: Ferrous Sulfate 325 MG TAB PO SCH ×2 (09:28→17:08)
[2019-01-04] MEDS: Lactulose 10 Gm/15 mL 30mL UDC PO SCH (09:30)
[2019-01-04] MEDS: Potassium Chloride 20 mEq ER Tab PO SCH (09:31)
[2019-01-04] MEDS: Multivitamin Tab PO SCH (09:31)
--- NOTE | 2019-01-04 20:14 | Internal Medicine Prog Note ---
Internal Medicine Subjective - Subjective Service Date: 01/04/19 Patient seen and examined:: with staff (HE FEELS WELL) Patient is:: awake, verbal, in bed, talking, confused Per staff patient has:: no adverse event Internal Medicine Objective - Results Result Diagrams: 12/25/18 21:35 12/25/18 21:35 Recent Labs: Laboratory Last Values WBC 3.0 Th/cmm (4.8-10.8) L 12/25/18 21:35 RBC 3.66 Mil/cmm (3.80-5.80) L 12/25/18 21:35 Hgb 10.2 gm/dL (12-16) L 12/25/18 21:35 Hct 31.0 % (41.0-60) L 12/25/18 21:35 MCV 84.5 fl (80-99) 12/25/18 21:35 MCH 27.8 pg (27.0-31.0) 12/25/18 21:35 MCHC Differential 33.0 pg (28.0-36.0) 12/25/18 21:35 RDW 15.3 % (11.5-20.0) 12/25/18 21:35 Plt Count 220 Th/cmm (150-400) 12/25/18 21:35 MPV 9.1 fl 12/25/18 21:35 Neutrophils % 24.6 % (40.0-80.0) L 12/25/18 21:35 Lymphocytes % 57.0 % (20.0-50.0) H 12/25/18 21:35 Monocytes % 12.7 % (2.0-10.0) H 12/25/18 21:35 Eosinophils % 4.5 % (0.0-5.0) 12/25/18 21:35 Basophils % 1.2 % (0.0-2.0) 12/25/18 21:35 Sodium 136 mEq/L (136-145) 12/25/18 21:35 Potassium 4.8 mEq/L (3.5-5.1) 12/25/18 21:35 Chloride 101 mEq/L (98-107) 12/25/18 21:35 Carbon Dioxide 30.4 mEq/L (21.0-31.0) 12/25/18 21:35 Anion Gap 9.4 (7.0-16.0) 12/25/18 21:35 BUN 18 mg/dL (7-25) 12/25/18 21:35 Creatinine 0.7 mg/dL (0.7-1.3) 12/25/18 21:35 Est GFR ( Amer) > 60.0 ml/min (>90) 12/25/18 21:35 Est GFR (Non-Af Amer) > 60.0 ml/min 12/25/18 21:35 BUN/Creatinine Ratio 25.7 12/25/18 21:35 Glucose 95 mg/dL (70-105) 12/25/18 21:35 POC Glucose 80 MG/DL (70 - 105) 12/25/18 22:34 Whole Bld Lactic Acid 0.86 mmol/L (0.60-1.99) 12/25/18 21:25 Calcium 8.8 mg/dL (8.6-10.3) 12/25/18 21:35 Total Bilirubin 0.3 mg/dL (0.3-1.0) 12/25/18 21:35 AST 27 U/L (13-39) 12/25/18 21:35 ALT 16 U/L (7-52) 12/25/18 21:35 Alkaline Phosphatase 62 U/L (34-104) 12/25/18 21:35 Troponin I 0.04 ng/mL (0.01-0.05) 12/27/18 07:44 B-Natriuretic Peptide 28.6 pg/mL (5.0-100.0) 12/25/18 21:35 Total Protein 6.5 gm/dL (6.0-8.3) 12/25/18 21:35 Albumin 3.3 gm/dL (4.2-5.5) L 12/25/18 21:35 Globulin 3.2 gm/dL 12/25/18 21:35 Albumin/Globulin Ratio 1.0 (1.0-1.8) 12/25/18 21:35 Triglycerides 78 mg/dL (<150) 12/25/18 21:35 Cholesterol 135 mg/dL (<200) 12/25/18 21:35 LDL Cholesterol Direct 86 mg/dL (75-193) 12/25/18 21:35 HDL Cholesterol 40 mg/dL (23-92) 12/25/18 21:35 TSH 1.02 uIU/ml (0.34-5.60) 12/25/18 21:35 Valproic Acid 17.2 ug/mL (50.0-100.0) L 01/01/19 19:35 RPR NONREACTIVE (NONREACTIVE) 12/25/18 21:35 - Physical Exam Vitals and I&O: Vital Signs Temp 97.4 F 01/04/19 15:02 Pulse 90 01/04/19 15:02 Resp 19 01/04/19 15:02 BP 116/68 01/04/19 15:02 Pulse Ox 96 01/04/19 15:02 Intake & Output 01/04/19 01/04/19 01/05/19 06:59 18:59 06:59 Intake Total 240 1000 Balance 240 1000 Intake: Oral 240 1000 Other: # Voids 3 4 # Bowel Movements 0 1 Active Medications: Current Medications Acetaminophen (Tylenol) 650 mg PO Q4HR PRN PRN Reason: Mild Pain / Temp above 100 Stop: 02/23/19 23:21 Allopurinol (Zyloprim) 100 mg PO DAILY [facility] Stop: 02/24/19 08:59 Last Admin: 01/04/19 09:28 Dose: Not Given Clonazepam (Klonopin) 1 mg PO BID [facility]; Protocol Stop: 03/02/19 08:59 Last Admin: 01/04/19 16:49 Dose: Not Given Colchicine (Colcrys) 0.6 mg PO DAILY [facility] Stop: 02/24/19 08:59 Last Admin: 01/04/19 09:28 Dose: Not Given Divalproex Sodium (Depakote Dr) 500 mg PO BID [facility]; Protocol Stop: 02/24/19 08:59 Last Admin: 01/04/19 16:49 Dose: Not Given Docusate Sodium (Colace) 250 mg PO DAILY [facility] Stop: 02/24/19 08:59 Last Admin: 01/04/19 09:28 Dose: Not Given Ferrous Sulfate (Iron) 325 mg PO BID [facility] Stop: 02/24/19 08:59 Last Admin: 01/04/19 17:08 Dose: Not Given Furosemide (Lasix) 40 mg PO DAILY [facility] Stop: 02/24/19 08:59 Last Admin: 01/04/19 09:28 Dose: Not Given Haloperidol Decanoate (Haldol Dec) 50 mg IM QMONTH [facility]; Protocol Stop: 03/04/19 09:59 Last Admin: 01/03/19 11:40 Dose: 50 mg Lactulose (Cephulac) 10 gm PO DAILY [facility] Stop: 02/24/19 08:59 Last Admin: 01/04/19 09:30 Dose: Not Given Lorazepam (Ativan) 0.5 mg PO Q4HR PRN; Protocol PRN Reason: Anxiety Stop: 01/24/19 23:21 Last Admin: 01/03/19 22:04 Dose: 0.5 mg Magnesium Hydroxide (Milk Of Magnesia) 30 ml PO HS PRN PRN Reason: Constipation Multivitamins/Vitamin C (Theragran) 1 tab PO DAILY [facility] Stop: 02/24/19 08:59 Last Admin: 01/04/19 09:31 Dose: Not Given Olanzapine (Zyprexa) 10 mg PO HS [facility]; Protocol Stop: 03/05/19 20:59 Olanzapine (Zyprexa) 10 mg PO DAILY [facility]; Protocol Stop: 03/05/19 08:59 Last Admin: 01/04/19 09:31 Dose: Not Given Potassium Chloride (Klor-Con) 20 meq PO DAILY [facility] Stop: 02/24/19 08:59 Last Admin: 01/04/19 09:31 Dose: Not Given Prednisone (Deltasone) 20 mg PO BID [facility] Stop: 02/24/19 08:59 Last Admin: 01/04/19 16:50 Dose: Not Given Quetiapine Fumarate (Seroquel) 100 mg PO BID [facility]; Protocol Stop: 03/03/19 08:59 Last Admin: 01/04/19 16:50 Dose: Not Given Quetiapine Fumarate (Seroquel) 200 mg PO HS [facility]; Protocol Stop: 03/03/19 20:59 Last Admin: 01/03/19 22:00 Dose: 200 mg Simvastatin (Zocor) 40 mg PO HS [facility]; Protocol Stop: 02/24/19 20:59 Last Admin: 01/03/19 22:00 Dose: 40 mg Zolpidem Tartrate (Ambien) 5 mg PO HS PRN PRN Reason: Insomnia Stop: 02/23/19 23:21 Last Admin: 01/04/19 00:14 Dose: 5 mg Zolpidem Tartrate (Ambien) 5 mg PO HS PRN PRN Reason: Insomnia Stop: 02/24/19 22:32 General: demented HEENT: NC/AT, PERRLA, EOMI, anicteric sclerae, throat clear Neck: Supple, No JVD, No thyromegaly, +2 carotid pulse wo bruit, No LAD, + JVD Lungs: CTAB Cardiovascular: RRR, Normal S1, Normal S2, without murmur Abdomen: soft, non-tender, non-distended Extremities: clear Neurological: no change Internal Medicine Assmt/Plan - Assessment Assessment: 1.CHRONIC LIVER DISEASE. 2.GOUTY ARTHRITIS. 3.ANEMIA. 4.HYPERLIPIDEMIA. 5.PSYCHOSIS. - Plan Plan: CONTINUE ON CURRENT MEDICATION AND DIET. Nutritional Asmnt/Malnutr-PDOC - Dietary Evaluation Malnutrition Findings (Please click <Entered> for more info): Nutritional Asmnt/Malnutrition Start: 12/31/18 15: 03 Text: Status: Complete Freq: Protocol: Document 12/31/18 15:03 [email or web address] (Rec: 12/31/18 15:14 [email or web address]) Nutritional Asmnt/Malnutrition Patient General Information Nutritional Screening Low Risk Diagnosis psychosis Pertinent Medical Hx/Surgical Hx hyperlipidemia, gouty arthritis, chronic liver disease, psychosis Subjective Information Per EMR, PO intake 100%. Per nurse note pt is confused. Current Diet Order/ Nutrition Support regular Pertinent Medications colace, iron, lasix, theragran , kcl Pertinent Labs 12/25 reviewed Nutritional Hx/Data Height 1.8 m Height (Calculated Centimeters) 180.3 Current Weight (lbs) 77.111 kg Weight (Calculated Kilograms) 77.1 Weight (Calculated Grams) 68303.7 [place] Body Weight 172 Body Mass Index (BMI) 23.7 Weight Status Approriate GI Symptoms GI Symptoms None Last BM 12/29 Difficult in: None Skin Integrity/Comment: intact Current %PO Good (75-100%) Estimated Nutritional Goals BEE in Kcals: Using Current wt Calories/Kcals/Kg 25-30 Kcals Calculated 9670-2501 Protein: Using Current wt Protein g/k Protein Calculated 77 Fluid: ml 1925-2310ml (1ml/kcal) Nutritional Problem No current Nutrition Prob Problem N/A Malnutrition Alert Is there a minimum of two criteria No selected? Query Text:Check all the applicable criteria. A minimum of two criteria are recommended for diagnosis of either severe or non-severe malnutrition. Malnutrition Related to Morbid Obesity Malnutrition related to morbid obesity No Intervention/Recommendation Comments 1. Continue with regular diet as ordered. 2. Monitor PO intake, wt, labs and skin integrity 3. F/U as low risk in 7 days Expected Outcomes/Goals Expected Outcomes/Goals 1. PO intake to meet at least 75% of nutritional needs. 2. Wt stability, skin to remain intact, labs to approach WNL.
--- NOTE | 2019-01-04 23:11 | Progress Notes ---
DATE: 01/04/2019 SUBJECTIVE: Chart was reviewed and the patient interviewed. Also discussed the patient's condition with the staff and reviewed records and labs. The patient is still argumentative and hyperverbal. The patient also is still easily agitated and is still questioning taking his medications and staff have to convince him to take his medications. The patient also seems to be slightly sleepy early during the day, but once he is awake, he starts to argue and starts to have fight with staff and belligerent. On the other hand, the patient did take his medications including Haldol decanoate injection yesterday with no side effects. ASSESSMENT: The patient is still agitated and is still psychotic. TREATMENT PLAN: We will continue to monitor his behavior and his condition closely. Also, we will decrease Zyprexa to 10 mg in the morning and 10 mg at bedtime and we will continue to monitor his behavior and his condition and work on behavioral modification and also placement issue. 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 JOB# [id number]
[2019-01-05] MEDS ORDERED: OLANZapine 5 mg Oral Disintegrating Tab PO SCH ×2 (09:00→21:00)
[2019-01-05] MEDS: Ferrous Sulfate 325 MG TAB PO SCH ×2 (09:01→17:51)
[2019-01-05] MEDS: Lactulose 10 Gm/15 mL 30mL UDC PO SCH (09:02)
[2019-01-05] MEDS: Multivitamin Tab PO SCH (09:05)
[2019-01-05] MEDS: Potassium Chloride 20 mEq ER Tab PO SCH (09:09)
--- NOTE | 2019-01-05 18:48 | Internal Medicine Prog Note ---
Internal Medicine Subjective - Subjective Service Date: 01/05/19 Patient seen and examined:: with staff Patient is:: awake, verbal, in bed, talking, confused Per staff patient has:: no adverse event Internal Medicine Objective - Results Result Diagrams: 12/25/18 21:35 12/25/18 21:35 Recent Labs: Laboratory Last Values WBC 3.0 Th/cmm (4.8-10.8) L 12/25/18 21:35 RBC 3.66 Mil/cmm (3.80-5.80) L 12/25/18 21:35 Hgb 10.2 gm/dL (12-16) L 12/25/18 21:35 Hct 31.0 % (41.0-60) L 12/25/18 21:35 MCV 84.5 fl (80-99) 12/25/18 21:35 MCH 27.8 pg (27.0-31.0) 12/25/18 21: MCHC Differential 33.0 pg (28.0-36.0) 12/25/18 21:35 RDW 15.3 % (11.5-20.0) 12/25/18 21:35 Plt Count 220 Th/cmm (150-400) 12/25/18 21:35 MPV 9.1 fl 12/25/18 21:35 Neutrophils % 24.6 % (40.0-80.0) L 12/25/18 21:35 Lymphocytes % 57.0 % (20.0-50.0) H 12/25/18 21:35 Monocytes % 12.7 % (2.0-10.0) H 12/25/18 21:35 Eosinophils % 4.5 % (0.0-5.0) 12/25/18 21:35 Basophils % 1.2 % (0.0-2.0) 12/25/18 21:35 Sodium 136 mEq/L (136-145) 12/25/18 21:35 Potassium 4.8 mEq/L (3.5-5.1) 12/25/18 21:35 Chloride 101 mEq/L (98-107) 12/25/18 21:35 Carbon Dioxide 30.4 mEq/L (21.0-31.0) 12/25/18 21:35 Anion Gap 9.4 (7.0-16.0) 12/25/18 21:35 BUN 18 mg/dL (7-25) 12/25/18 21:35 Creatinine 0.7 mg/dL (0.7-1.3) 12/25/18 21:35 Est GFR ( Amer) > 60.0 ml/min (>90) 12/25/18 21:35 Est GFR (Non-Af Amer) > 60.0 ml/min 12/25/18 21:35 BUN/Creatinine Ratio 25.7 12/25/18 21:35 Glucose 95 mg/dL (70-105) 12/25/18 21:35 POC Glucose 80 MG/DL (70 - 105) 12/25/18 22:34 Whole Bld Lactic Acid 0.86 mmol/L (0.60-1.99) 12/25/18 21:25 Calcium 8.8 mg/dL (8.6-10.3) 12/25/18 21:35 Total Bilirubin 0.3 mg/dL (0.3-1.0) 12/25/18 21:35 AST 27 U/L (13-39) 12/25/18 21:35 ALT 16 U/L (7-52) 12/25/18 21:35 Alkaline Phosphatase 62 U/L (34-104) 12/25/18 21:35 Troponin I 0.04 ng/mL (0.01-0.05) 12/27/18 07:44 B-Natriuretic Peptide 28.6 pg/mL (5.0-100.0) 12/25/18 21:35 Total Protein 6.5 gm/dL (6.0-8.3) 12/25/18 21:35 Albumin 3.3 gm/dL (4.2-5.5) L 12/25/18 21:35 Globulin 3.2 gm/dL 12/25/18 21:35 Albumin/Globulin Ratio 1.0 (1.0-1.8) 12/25/18 21:35 Triglycerides 78 mg/dL (<150) 12/25/18 21:35 Cholesterol 135 mg/dL (<200) 12/25/18 21:35 LDL Cholesterol Direct 86 mg/dL (75-193) 12/25/18 21:35 HDL Cholesterol 40 mg/dL (23-92) 12/25/18 21:35 TSH 1.02 uIU/ml (0.34-5.60) 12/25/18 21:35 Valproic Acid 17.2 ug/mL (50.0-100.0) L 01/01/19 19:35 RPR NONREACTIVE (NONREACTIVE) 12/25/18 21:35 - Physical Exam Vitals and I&O: Vital Signs Temp 97.4 F 01/05/19 14:00 Pulse 81 01/05/19 14:00 Resp 20 01/05/19 14:00 BP 115/51 01/05/19 14:00 Pulse Ox 94 01/05/19 14:00 Intake & Output 01/04/19 01/05/19 01/05/19 18:59 06:59 18:59 Intake Total 6733 116 1081 Balance 5263 008 1156 Intake: Oral 1717 000 2902 Other: # Voids 4 2 4 # Bowel Movements 1 0 1 Stool Characteristics Soft Formed Active Medications: Current Medications Acetaminophen (Tylenol) 650 mg PO Q4HR PRN PRN Reason: Mild Pain / Temp above 100 Stop: 02/23/19 23:21 Allopurinol (Zyloprim) 100 mg PO DAILY [facility] Stop: 02/24/19 08:59 Last Admin: 01/05/19 08:59 Dose: 100 mg Clonazepam (Klonopin) 1 mg PO BID [facility]; Protocol Stop: 03/02/19 08:59 Last Admin: 01/05/19 17:51 Dose: Not Given Colchicine (Colcrys) 0.6 mg PO DAILY [facility] Stop: 02/24/19 08:59 Last Admin: 01/05/19 09:00 Dose: 0.6 mg Divalproex Sodium (Depakote Dr) 500 mg PO BID [facility]; Protocol Stop: 02/24/19 08:59 Last Admin: 01/05/19 17:51 Dose: Not Given Docusate Sodium (Colace) 250 mg PO DAILY [facility] Stop: 02/24/19 08:59 Last Admin: 01/05/19 09:01 Dose: 250 mg Ferrous Sulfate (Iron) 325 mg PO BID [facility] Stop: 02/24/19 08:59 Last Admin: 01/05/19 17:51 Dose: 325 mg Furosemide (Lasix) 40 mg PO DAILY [facility] Stop: 02/24/19 08:59 Last Admin: 01/05/19 09:01 Dose: 40 mg Haloperidol Decanoate (Haldol Dec) 50 mg IM QMONTH [facility]; Protocol Stop: 03/04/19 09:59 Last Admin: 01/03/19 11:40 Dose: 50 mg Lactulose (Cephulac) 10 gm PO DAILY [facility] Stop: 02/24/19 08:59 Last Admin: 01/05/19 09:02 Dose: 10 gm Lorazepam (Ativan) 0.5 mg PO Q4HR PRN; Protocol PRN Reason: Anxiety Stop: 01/24/19 23:21 Last Admin: 01/03/19 22:04 Dose: 0.5 mg Magnesium Hydroxide (Milk Of Magnesia) 30 ml PO HS PRN PRN Reason: Constipation Multivitamins/Vitamin C (Theragran) 1 tab PO DAILY [facility] Stop: 02/24/19 08:59 Last Admin: 01/05/19 09:05 Dose: 1 tab Olanzapine (Zyprexa) 15 mg PO DAILY [facility]; Protocol Stop: 03/06/19 08:59 Last Admin: 01/05/19 09:06 Dose: 15 mg Olanzapine (Zyprexa) 15 mg PO HS [facility]; Protocol Stop: 03/06/19 20:59 Potassium Chloride (Klor-Con) 20 meq PO DAILY [facility] Stop: 02/24/19 08:59 Last Admin: 01/05/19 09:09 Dose: 20 meq Prednisone (Deltasone) 20 mg PO BID [facility] Stop: 02/24/19 08:59 Last Admin: 01/05/19 17:51 Dose: Not Given Quetiapine Fumarate (Seroquel) 100 mg PO BID [facility]; Protocol Stop: 03/03/19 08:59 Last Admin: 01/05/19 17:51 Dose: Not Given Quetiapine Fumarate (Seroquel) 200 mg PO HS [facility]; Protocol Stop: 03/03/19 20:59 Last Admin: 01/04/19 21:49 Dose: 200 mg Simvastatin (Zocor) 40 mg PO HS [facility]; Protocol Stop: 02/24/19 20:59 Last Admin: 01/04/19 21:49 Dose: 40 mg Zolpidem Tartrate (Ambien) 5 mg PO HS PRN PRN Reason: Insomnia Stop: 02/23/19 23:21 Last Admin: 01/04/19 21:52 Dose: 5 mg Zolpidem Tartrate (Ambien) 5 mg PO HS PRN PRN Reason: Insomnia Stop: 02/24/19 22:32 General: demented HEENT: NC/AT, PERRLA, EOMI, anicteric sclerae, throat clear Neck: Supple, No JVD, No thyromegaly, +2 carotid pulse wo bruit, No LAD, + JVD Lungs: CTAB Cardiovascular: RRR, Normal S1, Normal S2, without murmur Abdomen: soft, non-tender, non-distended Extremities: clear Neurological: no change Internal Medicine Assmt/Plan - Assessment Assessment: 1.CHRONIC LIVER DISEASE. 2.GOUTY ARTHRITIS. 3.ANEMIA. 4.HYPERLIPIDEMIA. 5.PSYCHOSIS. - Plan Plan: CONTINUE ON CURRENT MEDICATION AND DIET. Nutritional Asmnt/Malnutr-PDOC - Dietary Evaluation Malnutrition Findings (Please click <Entered> for more info): Nutritional Asmnt/Malnutrition Start: 12/31/18 15: 03 Text: Status: Complete Freq: Protocol: Document 12/31/18 15:03 LCHENG (Rec: 12/31/18 15:14 LCHENG [email or web address]) Nutritional Asmnt/Malnutrition Patient General Information Nutritional Screening Low Risk Diagnosis psychosis Pertinent Medical Hx/Surgical Hx hyperlipidemia, gouty arthritis, chronic liver disease, psychosis Subjective Information Per EMR, PO intake 100%. Per nurse note pt is confused. Current Diet Order/ Nutrition Support regular Pertinent Medications colace, iron, lasix, theragran , kcl Pertinent Labs 12/25 reviewed Nutritional Hx/Data Height 1.8 m Height (Calculated Centimeters) 180.3 Current Weight (lbs) 77.111 kg Weight (Calculated Kilograms) 77.1 Weight (Calculated Grams) 44090.7 [place] Body Weight 172 Body Mass Index (BMI) 23.7 Weight Status Approriate GI Symptoms GI Symptoms None Last BM 12/29 Difficult in: None Skin Integrity/Comment: intact Current %PO Good (75-100%) Estimated Nutritional Goals BEE in Kcals: Using Current wt Calories/Kcals/Kg 25-30 Kcals Calculated 1395-8239 Protein: Using Current wt Protein g/k Protein Calculated 77 Fluid: ml 1925-2310ml (1ml/kcal) Nutritional Problem No current Nutrition Prob Problem N/A Malnutrition Alert Is there a minimum of two criteria No selected? Query Text:Check all the applicable criteria. A minimum of two criteria are recommended for diagnosis of either severe or non-severe malnutrition. Malnutrition Related to Morbid Obesity Malnutrition related to morbid obesity No Intervention/Recommendation Comments 1. Continue with regular diet as ordered. 2. Monitor PO intake, wt, labs and skin integrity 3. F/U as low risk in 7 days Expected Outcomes/Goals Expected Outcomes/Goals 1. PO intake to meet at least 75% of nutritional needs. 2. Wt stability, skin to remain intact, labs to approach WNL.
--- NOTE | 2019-01-05 21:20 | Progress Notes ---
DATE: 01/05/2019 SUBJECTIVE: Case was discussed with staff of the patient, reviewed records. The patient continues to look disheveled. Continues to be unpredictable, impulsive, easily agitated, hyperverbal, argumentative with the staff, questioning his medication, paranoid, unpredictable, impulsive, needing redirection. His Zyprexa was increased by Dr. Smart today to 50 mg daily and 50 mg at bedtime with no side effects, no sedation, no nausea, no extrapyramidal symptoms. Also on Seroquel 100 mg twice a day and 200 mg at bedtime. We will continue outpatient group therapy, milieu therapy, adjust medication as needed. JOB# [id number]
[2019-01-06] MEDS: Ferrous Sulfate 325 MG TAB PO SCH ×2 (09:05→16:47)
[2019-01-06] MEDS: Lactulose 10 Gm/15 mL 30mL UDC PO SCH (09:06)
[2019-01-06] MEDS: Multivitamin Tab PO SCH (09:08)
[2019-01-06] MEDS: Potassium Chloride 20 mEq ER Tab PO SCH (09:09)
--- NOTE | 2019-01-06 17:56 | Internal Medicine Prog Note ---
Internal Medicine Subjective - Subjective Service Date: 01/06/19 Patient seen and examined:: without staff (HE FEELS WELL) Patient is:: awake, verbal, in bed, talking, confused Per staff patient has:: no adverse event Internal Medicine Objective - Results Result Diagrams: 12/25/18 21:35 12/25/18 21:35 Recent Labs: Laboratory Last Values WBC 3.0 Th/cmm (4.8-10.8) L 12/25/18 21:35 RBC 3.66 Mil/cmm (3.80-5.80) L 12/25/18 21:35 Hgb 10.2 gm/dL (12-16) L 12/25/18 21:35 Hct 31.0 % (41.0-60) L 12/25/18 21:35 MCV 84.5 fl (80-99) 12/25/18 21:35 MCH 27.8 pg (27.0-31.0) 12/25/18 21:35 MCHC Differential 33.0 pg (28.0-36.0) 12/25/18 21:35 RDW 15.3 % (11.5-20.0) 12/25/18 21:35 Plt Count 220 Th/cmm (150-400) 12/25/18 21:35 MPV 9.1 fl 12/25/18 21:35 Neutrophils % 24.6 % (40.0-80.0) L 12/25/18 21:35 Lymphocytes % 57.0 % (20.0-50.0) H 12/25/18 21:35 Monocytes % 12.7 % (2.0-10.0) H 12/25/18 21:35 Eosinophils % 4.5 % (0.0-5.0) 12/25/18 21:35 Basophils % 1.2 % (0.0-2.0) 12/25/18 21:35 Sodium 136 mEq/L (136-145) 12/25/18 21:35 Potassium 4.8 mEq/L (3.5-5.1) 12/25/18 21:35 Chloride 101 mEq/L (98-107) 12/25/18 21:35 Carbon Dioxide 30.4 mEq/L (21.0-31.0) 12/25/18 21:35 Anion Gap 9.4 (7.0-16.0) 12/25/18 21:35 BUN 18 mg/dL (7-25) 12/25/18 21:35 Creatinine 0.7 mg/dL (0.7-1.3) 12/25/18 21:35 Est GFR ( Amer) > 60.0 ml/min (>90) 12/25/18 21:35 Est GFR (Non-Af Amer) > 60.0 ml/min 12/25/18 21:35 BUN/Creatinine Ratio 25.7 12/25/18 21:35 Glucose 95 mg/dL (70-105) 12/25/18 21:35 POC Glucose 80 MG/DL (70 - 105) 12/25/18 22:34 Whole Bld Lactic Acid 0.86 mmol/L (0.60-1.99) 12/25/18 21:25 Calcium 8.8 mg/dL (8.6-10.3) 12/25/18 21:35 Total Bilirubin 0.3 mg/dL (0.3-1.0) 12/25/18 21:35 AST 27 U/L (13-39) 12/25/18 21:35 ALT 16 U/L (7-52) 12/25/18 21:35 Alkaline Phosphatase 62 U/L (34-104) 12/25/18 21:35 Troponin I 0.04 ng/mL (0.01-0.05) 12/27/18 07:44 B-Natriuretic Peptide 28.6 pg/mL (5.0-100.0) 12/25/18 21:35 Total Protein 6.5 gm/dL (6.0-8.3) 12/25/18 21:35 Albumin 3.3 gm/dL (4.2-5.5) L 12/25/18 21:35 Globulin 3.2 gm/dL 12/25/18 21:35 Albumin/Globulin Ratio 1.0 (1.0-1.8) 12/25/18 21:35 Triglycerides 78 mg/dL (<150) 12/25/18 21:35 Cholesterol 135 mg/dL (<200) 12/25/18 21:35 LDL Cholesterol Direct 86 mg/dL (75-193) 12/25/18 21:35 HDL Cholesterol 40 mg/dL (23-92) 12/25/18 21:35 TSH 1.02 uIU/ml (0.34-5.60) 12/25/18 21:35 Valproic Acid 17.2 ug/mL (50.0-100.0) L 01/01/19 19:35 RPR NONREACTIVE (NONREACTIVE) 12/25/18 21:35 - Physical Exam Vitals and I&O: Vital Signs Temp 97.6 F 01/06/19 14:00 Pulse 66 01/06/19 14:00 Resp 20 01/06/19 14:00 BP 109/77 01/06/19 14:00 Pulse Ox 97 01/06/19 14:00 Intake & Output 01/05/19 01/06/19 01/06/19 18:59 06:59 18:59 Intake Total 2400 240 Balance 2400 240 Intake: Oral 2400 240 Other: # Voids 4 3 # Bowel Movements 1 0 Stool Characteristics Soft Soft Soft Formed Formed Formed Active Medications: Current Medications Acetaminophen (Tylenol) 650 mg PO Q4HR PRN PRN Reason: Mild Pain / Temp above 100 Stop: 02/23/19 23:21 Last Admin: 01/06/19 04:41 Dose: 650 mg Allopurinol (Zyloprim) 100 mg PO DAILY [facility] Stop: 02/24/19 08:59 Last Admin: 01/06/19 09:04 Dose: 100 mg Clonazepam (Klonopin) 1 mg PO BID [facility]; Protocol Stop: 03/02/19 08:59 Last Admin: 01/06/19 16:46 Dose: 1 mg Colchicine (Colcrys) 0.6 mg PO DAILY [facility] Stop: 02/24/19 08:59 Last Admin: 01/06/19 09:04 Dose: 0.6 mg Divalproex Sodium (Depakote Dr) 500 mg PO BID [facility]; Protocol Stop: 02/24/19 08:59 Last Admin: 01/06/19 16:45 Dose: Not Given Docusate Sodium (Colace) 250 mg PO DAILY [facility] Stop: 02/24/19 08:59 Last Admin: 01/06/19 09:05 Dose: 250 mg Ferrous Sulfate (Iron) 325 mg PO BID [facility] Stop: 02/24/19 08:59 Last Admin: 01/06/19 16:47 Dose: 325 mg Furosemide (Lasix) 40 mg PO DAILY [facility] Stop: 02/24/19 08:59 Last Admin: 01/06/19 09:06 Dose: 40 mg Haloperidol Decanoate (Haldol Dec) 50 mg IM [facility]MONTH [facility]; Protocol Stop: 03/04/19 09:59 Last Admin: 01/03/19 11:40 Dose: 50 mg Lactulose (Cephulac) 10 gm PO DAILY [facility] Stop: 02/24/19 08:59 Last Admin: 01/06/19 09:06 Dose: 10 gm Lorazepam (Ativan) 0.5 mg PO Q4HR PRN; Protocol PRN Reason: Anxiety Stop: 01/24/19 23:21 Last Admin: 01/03/19 22:04 Dose: 0.5 mg Magnesium Hydroxide (Milk Of Magnesia) 30 ml PO HS PRN PRN Reason: Constipation Multivitamins/Vitamin C (Theragran) 1 tab PO DAILY [facility] Stop: 02/24/19 08:59 Last Admin: 01/06/19 09:08 Dose: 1 tab Olanzapine (Zyprexa) 15 mg PO DAILY [facility]; Protocol Stop: 03/06/19 08:59 Last Admin: 01/06/19 09:09 Dose: 15 mg Olanzapine (Zyprexa) 15 mg PO HS [facility]; Protocol Stop: 03/06/19 20:59 Last Admin: 01/05/19 20:40 Dose: 15 mg Potassium Chloride (Klor-Con) 20 meq PO DAILY [facility] Stop: 02/24/19 08:59 Last Admin: 01/06/19 09:09 Dose: 20 meq Prednisone (Deltasone) 20 mg PO BID [facility] Stop: 02/24/19 08:59 Last Admin: 01/06/19 16:47 Dose: 20 mg Quetiapine Fumarate (Seroquel) 100 mg PO BID [facility]; Protocol Stop: 03/03/19 08:59 Last Admin: 01/06/19 16:47 Dose: 100 mg Quetiapine Fumarate (Seroquel) 200 mg PO HS [facility]; Protocol Stop: 03/03/19 20:59 Last Admin: 01/05/19 20:39 Dose: 200 mg Simvastatin (Zocor) 40 mg PO HS [facility]; Protocol Stop: 02/24/19 20:59 Last Admin: 01/05/19 20:40 Dose: 40 mg Zolpidem Tartrate (Ambien) 5 mg PO HS PRN PRN Reason: Insomnia Stop: 02/23/19 23:21 Last Admin: 01/04/19 21:52 Dose: 5 mg Zolpidem Tartrate (Ambien) 5 mg PO HS PRN PRN Reason: Insomnia Stop: 02/24/19 22:32 General: demented HEENT: NC/AT, PERRLA, EOMI, anicteric sclerae, throat clear Neck: Supple, No JVD, No thyromegaly, +2 carotid pulse wo bruit, No LAD, + JVD Lungs: CTAB Cardiovascular: RRR, Normal S1, Normal S2, without murmur Abdomen: soft, non-tender, non-distended Extremities: clear Neurological: no change Internal Medicine Assmt/Plan - Assessment Assessment: 1.CHRONIC LIVER DISEASE. 2.GOUTY ARTHRITIS. 3.ANEMIA. 4.HYPERLIPIDEMIA. 5.PSYCHOSIS. - Plan Plan: CONTINUE ON CURRENT MEDICATION AND DIET. Nutritional Asmnt/Malnutr-PDOC - Dietary Evaluation Malnutrition Findings (Please click <Entered> for more info): Nutritional Asmnt/Malnutrition Start: 12/31/18 15: 03 Text: Status: Complete Freq: Protocol: Document 12/31/18 15:03 LCHENG (Rec: 12/31/18 15:14 LCHENG [email or web address]) Nutritional Asmnt/Malnutrition Patient General Information Nutritional Screening Low Risk Diagnosis psychosis Pertinent Medical Hx/Surgical Hx hyperlipidemia, gouty arthritis, chronic liver disease, psychosis Subjective Information Per EMR, PO intake 100%. Per nurse note pt is confused. Current Diet Order/ Nutrition Support regular Pertinent Medications colace, iron, lasix, theragran , kcl Pertinent Labs 12/25 reviewed Nutritional Hx/Data Height 1.8 m Height (Calculated Centimeters) 180.3 Current Weight (lbs) 77.111 kg Weight (Calculated Kilograms) 77.1 Weight (Calculated Grams) 62353.7 [place] Body Weight 172 Body Mass Index (BMI) 23.7 Weight Status Approriate GI Symptoms GI Symptoms None Last BM 12/29 Difficult in: None Skin Integrity/Comment: intact Current %PO Good (75-100%) Estimated Nutritional Goals BEE in Kcals: Using Current wt Calories/Kcals/Kg 25-30 Kcals Calculated 6018-9503 Protein: Using Current wt Protein g/k Protein Calculated 77 Fluid: ml 1925-2310ml (1ml/kcal) Nutritional Problem No current Nutrition Prob Problem N/A Malnutrition Alert Is there a minimum of two criteria No selected? Query Text:Check all the applicable criteria. A minimum of two criteria are recommended for diagnosis of either severe or non-severe malnutrition. Malnutrition Related to Morbid Obesity Malnutrition related to morbid obesity No Intervention/Recommendation Comments 1. Continue with regular diet as ordered. 2. Monitor PO intake, wt, labs and skin integrity 3. F/U as low risk in 7 days Expected Outcomes/Goals Expected Outcomes/Goals 1. PO intake to meet at least 75% of nutritional needs. 2. Wt stability, skin to remain intact, labs to approach WNL.
--- NOTE | 2019-01-06 22:00 | Progress Notes ---
DATE: 01/06/2019 FOLLOWUP PROGRESS NOTE PROGRESS ON THE UNIT: Case was discussed with staff of the patient, reviewed records. The patient continues to be irritable, continues to have poor insight. Selective about his medication. He has not taken the Depakote. He continues to have poor insight, unable to make safe plan for self-care and easily agitated. He is sleeping well, eating well and no side effects with the medication. No sedation, no nausea, no extrapyramidal symptoms. We will continue to work with the patient in group therapy and milieu therapy, adjust the medication as needed. JOB# [id number]
[2019-01-07] MEDS: Multivitamin Tab PO SCH (09:54)
[2019-01-07] MEDS: Lactulose 10 Gm/15 mL 30mL UDC PO SCH (09:57)
[2019-01-07] MEDS: Ferrous Sulfate 325 MG TAB PO SCH ×2 (09:57→17:12)
[2019-01-07] MEDS: Potassium Chloride 20 mEq ER Tab PO SCH (09:57)
--- NOTE | 2019-01-07 18:56 | Internal Medicine Prog Note ---
Internal Medicine Subjective - Subjective Service Date: 01/07/19 Patient seen and examined:: with staff (HE FEELS WELL) Patient is:: awake, verbal, in bed, talking, confused Per staff patient has:: no adverse event Internal Medicine Objective - Results Result Diagrams: 12/25/18 21:35 12/25/18 21:35 Recent Labs: Laboratory Last Values WBC 3.0 Th/cmm (4.8-10.8) L 12/25/18 21:35 RBC 3.66 Mil/cmm (3.80-5.80) L 12/25/18 21:35 Hgb 10.2 gm/dL (12-16) L 12/25/18 21:35 Hct 31.0 % (41.0-60) L 12/25/18 21:35 MCV 84.5 fl (80-99) 12/25/18 21:35 MCH 27.8 pg (27.0-31.0) 12/25/18 21:35 MCHC Differential 33.0 pg (28.0-36.0) 12/25/18 21:35 RDW 15.3 % (11.5-20.0) 12/25/18 21:35 Plt Count 220 Th/cmm (150-400) 12/25/18 21:35 MPV 9.1 fl 12/25/18 21:35 Neutrophils % 24.6 % (40.0-80.0) L 12/25/18 21:35 Lymphocytes % 57.0 % (20.0-50.0) H 12/25/18 21:35 Monocytes % 12.7 % (2.0-10.0) H 12/25/18 21:35 Eosinophils % 4.5 % (0.0-5.0) 12/25/18 21:35 Basophils % 1.2 % (0.0-2.0) 12/25/18 21:35 Sodium 136 mEq/L (136-145) 12/25/18 21:35 Potassium 4.8 mEq/L (3.5-5.1) 12/25/18 21:35 Chloride 101 mEq/L (98-107) 12/25/18 21:35 Carbon Dioxide 30.4 mEq/L (21.0-31.0) 12/25/18 21:35 Anion Gap 9.4 (7.0-16.0) 12/25/18 21:35 BUN 18 mg/dL (7-25) 12/25/18 21:35 Creatinine 0.7 mg/dL (0.7-1.3) 12/25/18 21:35 Est GFR ( Amer) > 60.0 ml/min (>90) 12/25/18 21:35 Est GFR (Non-Af Amer) > 60.0 ml/min 12/25/18 21:35 BUN/Creatinine Ratio 25.7 12/25/18 21:35 Glucose 95 mg/dL (70-105) 12/25/18 21:35 POC Glucose 80 MG/DL (70 - 105) 12/25/18 22:34 Whole Bld Lactic Acid 0.86 mmol/L (0.60-1.99) 12/25/18 21:25 Calcium 8.8 mg/dL (8.6-10.3) 12/25/18 21:35 Total Bilirubin 0.3 mg/dL (0.3-1.0) 12/25/18 21:35 AST 27 U/L (13-39) 12/25/18 21:35 ALT 16 U/L (7-52) 12/25/18 21:35 Alkaline Phosphatase 62 U/L (34-104) 12/25/18 21:35 Troponin I 0.04 ng/mL (0.01-0.05) 12/27/18 07:44 B-Natriuretic Peptide 28.6 pg/mL (5.0-100.0) 12/25/18 21:35 Total Protein 6.5 gm/dL (6.0-8.3) 12/25/18 21:35 Albumin 3.3 gm/dL (4.2-5.5) L 12/25/18 21:35 Globulin 3.2 gm/dL 12/25/18 21:35 Albumin/Globulin Ratio 1.0 (1.0-1.8) 12/25/18 21:35 Triglycerides 78 mg/dL (<150) 12/25/18 21:35 Cholesterol 135 mg/dL (<200) 12/25/18 21:35 LDL Cholesterol Direct 86 mg/dL (75-193) 12/25/18 21:35 HDL Cholesterol 40 mg/dL (23-92) 12/25/18 21:35 TSH 1.02 uIU/ml (0.34-5.60) 12/25/18 21:35 Valproic Acid 17.2 ug/mL (50.0-100.0) L 01/01/19 19:35 RPR NONREACTIVE (NONREACTIVE) 12/25/18 21:35 - Physical Exam Vitals and I&O: Vital Signs Temp 97.2 F 01/07/19 14:40 Pulse 75 01/07/19 14:40 Resp 18 01/07/19 14:40 BP 126/65 01/07/19 14:40 Pulse Ox 97 01/07/19 14:40 Intake & Output 01/06/19 01/07/19 01/07/19 18:59 06:59 18:59 Intake Total 555 819 9950 Balance 753 253 7967 Intake: Oral 938 309 5464 Other: # Voids 3 3 4 # Bowel Movements 1 1 Stool Characteristics Soft Soft Formed Formed Active Medications: Current Medications Acetaminophen (Tylenol) 650 mg PO Q4HR PRN PRN Reason: Mild Pain / Temp above 100 Stop: 02/23/19 23:21 Last Admin: 01/06/19 04:41 Dose: 650 mg Allopurinol (Zyloprim) 100 mg PO DAILY [facility] Stop: 02/24/19 08:59 Last Admin: 01/07/19 09:55 Dose: 100 mg Clonazepam (Klonopin) 1 mg PO BID [facility]; Protocol Stop: 03/02/19 08:59 Last Admin: 01/07/19 17:13 Dose: 1 mg Colchicine (Colcrys) 0.6 mg PO DAILY [facility] Stop: 02/24/19 08:59 Last Admin: 01/07/19 09:58 Dose: Not Given Divalproex Sodium (Depakote Dr) 500 mg PO BID [facility]; Protocol Stop: 02/24/19 08:59 Last Admin: 01/07/19 17:14 Dose: 500 mg Docusate Sodium (Colace) 250 mg PO DAILY [facility] Stop: 02/24/19 08:59 Last Admin: 01/07/19 09:58 Dose: Not Given Ferrous Sulfate (Iron) 325 mg PO BID [facility] Stop: 02/24/19 08:59 Last Admin: 01/07/19 17:12 Dose: 325 mg Furosemide (Lasix) 40 mg PO DAILY [facility] Stop: 02/24/19 08:59 Last Admin: 01/07/19 09:57 Dose: 40 mg Haloperidol Decanoate (Haldol Dec) 50 mg IM QMONTH [facility]; Protocol Stop: 03/04/19 09:59 Last Admin: 01/03/19 11:40 Dose: 50 mg Lactulose (Cephulac) 10 gm PO DAILY [facility] Stop: 02/24/19 08:59 Last Admin: 01/07/19 09:57 Dose: Not Given Lorazepam (Ativan) 0.5 mg PO Q4HR PRN; Protocol PRN Reason: Anxiety Stop: 01/24/19 23:21 Last Admin: 01/03/19 22:04 Dose: 0.5 mg Magnesium Hydroxide (Milk Of Magnesia) 30 ml PO HS PRN PRN Reason: Constipation Multivitamins/Vitamin C (Theragran) 1 tab PO DAILY [facility] Stop: 02/24/19 08:59 Last Admin: 01/07/19 09:54 Dose: 1 tab Olanzapine (Zyprexa) 5 mg PO DAILY [facility]; Protocol Stop: 03/08/19 08:59 Last Admin: 01/07/19 09:55 Dose: 5 mg Olanzapine (Zyprexa) 5 mg PO HS [facility]; Protocol Stop: 03/08/19 20:59 Potassium Chloride (Klor-Con) 20 meq PO DAILY [facility] Stop: 02/24/19 08:59 Last Admin: 01/07/19 09:57 Dose: 20 meq Prednisone (Deltasone) 20 mg PO BID [facility] Stop: 02/24/19 08:59 Last Admin: 01/07/19 17:11 Dose: 20 mg Quetiapine Fumarate (Seroquel) 150 mg PO BID [facility]; Protocol Stop: 03/08/19 08:59 Last Admin: 01/07/19 17:13 Dose: 150 mg Quetiapine Fumarate (Seroquel) 300 mg PO HS [facility]; Protocol Stop: 03/08/19 20:59 Simvastatin (Zocor) 40 mg PO HS [facility]; Protocol Stop: 02/24/19 20:59 Last Admin: 01/06/19 20:22 Dose: 40 mg Zolpidem Tartrate (Ambien) 5 mg PO HS PRN PRN Reason: Insomnia Stop: 02/23/19 23:21 Last Admin: 01/04/19 21:52 Dose: 5 mg Zolpidem Tartrate (Ambien) 5 mg PO HS PRN PRN Reason: Insomnia Stop: 02/24/19 22:32 Last Admin: 01/06/19 20:22 Dose: 5 mg General: demented HEENT: NC/AT, PERRLA, EOMI, anicteric sclerae, throat clear Neck: Supple, No JVD, No thyromegaly, +2 carotid pulse wo bruit, No LAD, + JVD Lungs: CTAB Cardiovascular: RRR, Normal S1, Normal S2, without murmur Abdomen: soft, non-tender, non-distended Extremities: clear Neurological: no change Internal Medicine Assmt/Plan - Assessment Assessment: 1.CHRONIC LIVER DISEASE. 2.GOUTY ARTHRITIS. 3.ANEMIA. 4.HYPERLIPIDEMIA. 5.PSYCHOSIS. - Plan Plan: CONTINUE ON CURRENT MEDICATION AND DIET. Nutritional Asmnt/Malnutr-PDOC - Dietary Evaluation Malnutrition Findings (Please click <Entered> for more info): Nutritional Asmnt/Malnutrition Start: 12/31/18 15: 03 Text: Status: Complete Freq: Protocol: Document 12/31/18 15:03 LCHENG (Rec: 12/31/18 15:14 LCHENG [email or web address]) Nutritional Asmnt/Malnutrition Patient General Information Nutritional Screening Low Risk Diagnosis psychosis Pertinent Medical Hx/Surgical Hx hyperlipidemia, gouty arthritis, chronic liver disease, psychosis Subjective Information Per EMR, PO intake 100%. Per nurse note pt is confused. Current Diet Order/ Nutrition Support regular Pertinent Medications colace, iron, lasix, theragran , kcl Pertinent Labs 12/25 reviewed Nutritional Hx/Data Height 1.8 m Height (Calculated Centimeters) 180.3 Current Weight (lbs) 77.111 kg Weight (Calculated Kilograms) 77.1 Weight (Calculated Grams) 12860.7 [place] Body Weight 172 Body Mass Index (BMI) 23.7 Weight Status Approriate GI Symptoms GI Symptoms None Last BM 12/29 Difficult in: None Skin Integrity/Comment: intact Current %PO Good (75-100%) Estimated Nutritional Goals BEE in Kcals: Using Current wt Calories/Kcals/Kg 25-30 Kcals Calculated 3595-9221 Protein: Using Current wt Protein g/k Protein Calculated 77 Fluid: ml 1925-2310ml (1ml/kcal) Nutritional Problem No current Nutrition Prob Problem N/A Malnutrition Alert Is there a minimum of two criteria No selected? Query Text:Check all the applicable criteria. A minimum of two criteria are recommended for diagnosis of either severe or non-severe malnutrition. Malnutrition Related to Morbid Obesity Malnutrition related to morbid obesity No Intervention/Recommendation Comments 1. Continue with regular diet as ordered. 2. Monitor PO intake, wt, labs and skin integrity 3. F/U as low risk in 7 days Expected Outcomes/Goals Expected Outcomes/Goals 1. PO intake to meet at least 75% of nutritional needs. 2. Wt stability, skin to remain intact, labs to approach WNL.
--- NOTE | 2019-01-08 | Progress Notes ---
DATE: 01/07/2019 SUBJECTIVE: Chart reviewed and the patient interviewed. Also discussed the patient's condition with the staff and reviewed records and labs. The patient remains extremely agitated and he is still in irritable mood. The patient also is still hyperverbal and he is still intrusive to others. He also is still unable to follow directions and he is still anxious and irritable. Otherwise, the patient has difficulty with his mood and he still can be dangerous to others with his threatening behavior. ASSESSMENT: The patient is still agitated and he still can be dangerous to others. TREATMENT PLAN: We will continue to monitor his behavior and his condition closely. Also we will increase Seroquel to 150 mg twice a day and 300 mg at bedtime. Also we will decrease Zyprexa to 5 mg twice a day and continue cross titrating Zyprexa and Seroquel. Also we will work on discharge plans and placement issue. Today people from [facility] are coming to interview the patient for possible placement there. JOB# [id number]
[2019-01-08] MEDS: Potassium Chloride 20 mEq ER Tab PO SCH (08:34)
[2019-01-08] MEDS: Ferrous Sulfate 325 MG TAB PO SCH ×2 (08:35→17:08)
[2019-01-08] MEDS: Multivitamin Tab PO SCH (08:36)
[2019-01-08] MEDS: Lactulose 10 Gm/15 mL 30mL UDC PO SCH (08:47)
--- NOTE | 2019-01-08 21:44 | Internal Medicine Prog Note ---
Internal Medicine Subjective - Subjective Service Date: 01/08/19 Patient seen and examined:: without staff (HE FEELS GOOD) Patient is:: awake, verbal, in bed, talking, confused Per staff patient has:: no adverse event Internal Medicine Objective - Results Result Diagrams: 12/25/18 21:35 12/25/18 21:35 Recent Labs: Laboratory Last Values WBC 3.0 Th/cmm (4.8-10.8) L 12/25/18 21:35 RBC 3.66 Mil/cmm (3.80-5.80) L 12/25/18 21:35 Hgb 10.2 gm/dL (12-16) L 12/25/18 21:35 Hct 31.0 % (41.0-60) L 12/25/18 21:35 MCV 84.5 fl (80-99) 12/25/18 21:35 MCH 27.8 pg (27.0-31.0) 12/25/18 21:35 MCHC Differential 33.0 pg (28.0-36.0) 12/25/18 21:35 RDW 15.3 % (11.5-20.0) 12/25/18 21:35 Plt Count 220 Th/cmm (150-400) 12/25/18 21:35 MPV 9.1 fl 12/25/18 21:35 Neutrophils % 24.6 % (40.0-80.0) L 12/25/18 21:35 Lymphocytes % 57.0 % (20.0-50.0) H 12/25/18 21:35 Monocytes % 12.7 % (2.0-10.0) H 12/25/18 21:35 Eosinophils % 4.5 % (0.0-5.0) 12/25/18 21:35 Basophils % 1.2 % (0.0-2.0) 12/25/18 21:35 Sodium 136 mEq/L (136-145) 12/25/18 21:35 Potassium 4.8 mEq/L (3.5-5.1) 12/25/18 21:35 Chloride 101 mEq/L (98-107) 12/25/18 21:35 Carbon Dioxide 30.4 mEq/L (21.0-31.0) 12/25/18 21:35 Anion Gap 9.4 (7.0-16.0) 12/25/18 21:35 BUN 18 mg/dL (7-25) 12/25/18 21:35 Creatinine 0.7 mg/dL (0.7-1.3) 12/25/18 21:35 Est GFR ( Amer) > 60.0 ml/min (>90) 12/25/18 21:35 Est GFR (Non-Af Amer) > 60.0 ml/min 12/25/18 21:35 BUN/Creatinine Ratio 25.7 12/25/18 21:35 Glucose 95 mg/dL (70-105) 12/25/18 21:35 POC Glucose 80 MG/DL (70 - 105) 12/25/18 22:34 Whole Bld Lactic Acid 0.86 mmol/L (0.60-1.99) 12/25/18 21:25 Calcium 8.8 mg/dL (8.6-10.3) 12/25/18 21:35 Total Bilirubin 0.3 mg/dL (0.3-1.0) 12/25/18 21:35 AST 27 U/L (13-39) 12/25/18 21:35 ALT 16 U/L (7-52) 12/25/18 21:35 Alkaline Phosphatase 62 U/L (34-104) 12/25/18 21:35 Troponin I 0.04 ng/mL (0.01-0.05) 12/27/18 07:44 B-Natriuretic Peptide 28.6 pg/mL (5.0-100.0) 12/25/18 21:35 Total Protein 6.5 gm/dL (6.0-8.3) 12/25/18 21:35 Albumin 3.3 gm/dL (4.2-5.5) L 12/25/18 21:35 Globulin 3.2 gm/dL 12/25/18 21:35 Albumin/Globulin Ratio 1.0 (1.0-1.8) 12/25/18 21:35 Triglycerides 78 mg/dL (<150) 12/25/18 21:35 Cholesterol 135 mg/dL (<200) 12/25/18 21:35 LDL Cholesterol Direct 86 mg/dL (75-193) 12/25/18 21:35 HDL Cholesterol 40 mg/dL (23-92) 12/25/18 21:35 TSH 1.02 uIU/ml (0.34-5.60) 12/25/18 21:35 Valproic Acid < 10.0 ug/mL (50.0-100.0) L 01/08/19 08:40 RPR NONREACTIVE (NONREACTIVE) 12/25/18 21:35 - Physical Exam Vitals and I&O: Vital Signs Temp 98.2 F 01/08/19 20:19 Pulse 73 01/08/19 20:19 Resp 20 01/08/19 20:19 BP 137/73 01/08/19 20:19 Pulse Ox 96 01/08/19 20:19 Intake & Output 01/08/19 01/08/19 01/09/19 06:59 18:59 06:59 Intake Total 240 900 240 Output Total 1 Balance 239 900 240 Intake: Oral 240 900 240 Output: Urine/Stool Mix 1 Other: # Voids 3 4 1 # Bowel Movements 0 0 Stool Characteristics Soft Soft Formed Formed Active Medications: Current Medications Acetaminophen (Tylenol) 650 mg PO Q4HR PRN PRN Reason: Mild Pain / Temp above 100 Stop: 02/23/19 23:21 Last Admin: 01/06/19 04:41 Dose: 650 mg Allopurinol (Zyloprim) 100 mg PO DAILY [facility] Stop: 02/24/19 08:59 Last Admin: 01/08/19 08:36 Dose: 100 mg Colchicine (Colcrys) 0.6 mg PO DAILY [facility] Stop: 02/24/19 08:59 Last Admin: 01/08/19 08:47 Dose: Not Given Divalproex Sodium (Depakote Dr) 500 mg PO BID [facility]; Protocol Stop: 02/24/19 08:59 Last Admin: 01/08/19 17:23 Dose: Not Given Docusate Sodium (Colace) 250 mg PO DAILY [facility] Stop: 02/24/19 08:59 Last Admin: 01/08/19 08:47 Dose: Not Given Ferrous Sulfate (Iron) 325 mg PO BID [facility] Stop: 02/24/19 08:59 Last Admin: 01/08/19 17:08 Dose: 325 mg Furosemide (Lasix) 40 mg PO DAILY [facility] Stop: 02/24/19 08:59 Last Admin: 01/08/19 08:34 Dose: 40 mg Haloperidol Decanoate (Haldol Dec) 50 mg IM QMONTH [facility]; Protocol Stop: 03/04/19 09:59 Last Admin: 01/03/19 11:40 Dose: 50 mg Lactulose (Cephulac) 10 gm PO DAILY [facility] Stop: 02/24/19 08:59 Last Admin: 01/08/19 08:47 Dose: Not Given Lorazepam (Ativan) 0.5 mg PO Q4HR PRN; Protocol PRN Reason: Anxiety Stop: 01/24/19 23:21 Last Admin: 01/08/19 17:09 Dose: 0.5 mg Magnesium Hydroxide (Milk Of Magnesia) 30 ml PO HS PRN PRN Reason: Constipation Multivitamins/Vitamin C (Theragran) 1 tab PO DAILY [facility] Stop: 02/24/19 08:59 Last Admin: 01/08/19 08:36 Dose: 1 tab Olanzapine (Zyprexa) 5 mg PO DAILY [facility]; Protocol Stop: 03/08/19 08:59 Last Admin: 01/08/19 08:35 Dose: 5 mg Olanzapine (Zyprexa) 5 mg PO HS [facility]; Protocol Stop: 03/08/19 20:59 Last Admin: 01/08/19 20:47 Dose: 5 mg Potassium Chloride (Klor-Con) 20 meq PO DAILY [facility] Stop: 02/24/19 08:59 Last Admin: 01/08/19 08:34 Dose: 20 meq Prednisone (Deltasone) 20 mg PO BID [facility] Stop: 02/24/19 08:59 Last Admin: 01/08/19 17:08 Dose: 20 mg Quetiapine Fumarate (Seroquel) 300 mg PO HS [facility]; Protocol Stop: 03/08/19 20:59 Last Admin: 01/08/19 20:47 Dose: 300 mg Quetiapine Fumarate (Seroquel) 200 mg PO BID [facility]; Protocol Stop: 03/09/19 08:59 Last Admin: 01/08/19 17:09 Dose: 200 mg Simvastatin (Zocor) 40 mg PO HS [facility]; Protocol Stop: 02/24/19 20:59 Last Admin: 01/08/19 20:47 Dose: 40 mg Zolpidem Tartrate (Ambien) 5 mg PO HS PRN PRN Reason: Insomnia Stop: 02/23/19 23:21 Last Admin: 01/07/19 21:47 Dose: 5 mg Zolpidem Tartrate (Ambien) 5 mg PO HS PRN PRN Reason: Insomnia Stop: 02/24/19 22:32 Last Admin: 01/06/19 20:22 Dose: 5 mg General: demented HEENT: NC/AT, PERRLA, EOMI, anicteric sclerae, throat clear Neck: Supple, No JVD, No thyromegaly, +2 carotid pulse wo bruit, No LAD, + JVD Lungs: CTAB Cardiovascular: RRR, Normal S1, Normal S2, without murmur Abdomen: soft, non-tender, non-distended Extremities: clear Neurological: no change Internal Medicine Assmt/Plan - Assessment Assessment: 1.CHRONIC LIVER DISEASE. 2.GOUTY ARTHRITIS. 3.ANEMIA. 4.HYPERLIPIDEMIA. 5.PSYCHOSIS. - Plan Plan: CONTINUE ON CURRENT MEDICATION AND DIET. Nutritional Asmnt/Malnutr-PDOC - Dietary Evaluation Malnutrition Findings (Please click <Entered> for more info): Nutritional Asmnt/Malnutrition Start: 12/31/18 15: 03 Text: Status: Complete Freq: Protocol: Document 12/31/18 15:03 LCHENG (Rec: 12/31/18 15:14 LCHENG [email or web address]) Nutritional Asmnt/Malnutrition Patient General Information Nutritional Screening Low Risk Diagnosis psychosis Pertinent Medical Hx/Surgical Hx hyperlipidemia, gouty arthritis, chronic liver disease, psychosis Subjective Information Per EMR, PO intake 100%. Per nurse note pt is confused. Current Diet Order/ Nutrition Support regular Pertinent Medications colace, iron, lasix, theragran , kcl Pertinent Labs 12/25 reviewed Nutritional Hx/Data Height 1.8 m Height (Calculated Centimeters) 180.3 Current Weight (lbs) 77.111 kg Weight (Calculated Kilograms) 77.1 Weight (Calculated Grams) 22799.7 [place] Body Weight 172 Body Mass Index (BMI) 23.7 Weight Status Approriate GI Symptoms GI Symptoms None Last BM 12/29 Difficult in: None Skin Integrity/Comment: intact Current %PO Good (75-100%) Estimated Nutritional Goals BEE in Kcals: Using Current wt Calories/Kcals/Kg 25-30 Kcals Calculated 8349-2390 Protein: Using Current wt Protein g/k Protein Calculated 77 Fluid: ml 1925-2310ml (1ml/kcal) Nutritional Problem No current Nutrition Prob Problem N/A Malnutrition Alert Is there a minimum of two criteria No selected? Query Text:Check all the applicable criteria. A minimum of two criteria are recommended for diagnosis of either severe or non-severe malnutrition. Malnutrition Related to Morbid Obesity Malnutrition related to morbid obesity No Intervention/Recommendation Comments 1. Continue with regular diet as ordered. 2. Monitor PO intake, wt, labs and skin integrity 3. F/U as low risk in 7 days Expected Outcomes/Goals Expected Outcomes/Goals 1. PO intake to meet at least 75% of nutritional needs. 2. Wt stability, skin to remain intact, labs to approach WNL.
--- NOTE | 2019-01-09 03:22 | Progress Notes ---
DATE: SUBJECTIVE: Chart was reviewed and the patient interviewed. Also discussed the patient's condition with the staff and reviewed records and labs. The patient is still easily agitated and he is still argumentative and intrusive to others. The patient also is still having unpredictable behavior. Also, he is still anxious and hyper talkative. On the other hand, the patient is not fighting with the staff as much and his argument is less. Also, slightly easier to redirect him. ASSESSMENT: The patient is still psychotic and agitated, but less than before. TREATMENT PLAN: Continue to monitor his behavior and condition closely. Also, we will continue Klonopin 1 mg twice a day and Depakote 500 mg twice a day. We will increase Seroquel to 500 mg twice a day and 300 mg at bedtime. Depakote blood level that was done on 01/01 was 17.2. We will get another Depakote blood level today and continue to follow up. JOB# [id number]
--- NOTE | 2019-01-09 07:05 | Discharge Summary ---
DATE OF DISCHARGE: 01/09/2019 PATIENT'S AGE: 68. SEX: Male. PHYSICIAN: Iglesia Smart MD, MPH FINAL DIAGNOSES: PRIMARY DIAGNOSES: Bipolar disorder, manic episode, severe, with psychotic features. REASON FOR HOSPITALIZATION: The patient was admitted to the hospital because of increased agitation and irritability and the patient was placed on hold for dangerous to others. HOSPITAL COURSE: The patient continued to be extremely agitated and extremely irritable. The patient also was restless and he was resisting care and fighting with the staff and argumentative and demanding. The patient was started on Depakote 500 mg twice a day and also was given Haldol Decanoate injection because he was not compliant with taking his medications and at times was refusing to take medications and the patient agreed to take the Haldol injection. Also, Zyprexa was added in a dose of 5 mg twice a day and also Seroquel was given in a dose of 300 mg at bedtime. Gradually, the patient's affect was brighter. The patient was less irritable and less agitated. The patient also with an issue with placement and finally [facility] accepted the patient and the patient discharged there. Physical examination of the patient was basically within normal. The patient had no major medical problems while in the hospital. Blood workup showed Depakote blood level that was done on 01/08/2019 was less than 10 and blood level will be adjusted in [facility]. EXPECTED OUTCOME AFTER DISCHARGE: Fair if the patient continued to take his medications and follow up with discharge plans. [facility]# [id number]
[2019-01-09] MEDS: Potassium Chloride 20 mEq ER Tab PO SCH (09:50)
[2019-01-09] MEDS: Ferrous Sulfate 325 MG TAB PO SCH (09:51)
[2019-01-09] MEDS: Multivitamin Tab PO SCH (09:52)
[2019-01-09] MEDS: Lactulose 10 Gm/15 mL 30mL UDC PO SCH (09:53)
== END 2019-01-09 14:15 | DRG 885 ==
LOC: ER 20:42 → GERO 21:55
PROVIDERS: ADMIT Psychiatry & Neurology Psychiatry; ATTEND Psychiatry & Neurology Psychiatry
DX: F31.2 Bipolar disorder, current episode manic severe with psychotic features (principal); M10.9 Gout, unspecified; E78.5 Hyperlipidemia, unspecified; D64.9 Anemia, unspecified; K76.9 Liver disease, unspecified
CPT/HCPCS: 36415-UA; 71045-TC; 80053-TC; 80061-TC; 80164-TC; 82948-90; 83036-90; 83605; 83880-TC; 84443-TC; 84484-TC; 85007-TC; 85025-TC; 86592-TC; 93005; G0410; J1200; J1630; J1631; J2060; J7051; Z7610